=== PATIENT | male | born 1955 | race Asian ===

== ENCOUNTER 2024-07-22 14:24 | Inpatient (IN) | payer BC, OTHER ==
[~2024-07-22] VITALS: Ht 177.8 cm; Wt 90.9 kg
--- NOTE | 2024-07-22 15:00 | DVH ---
CHEST RADIOGRAPH Indication: SYNCOPE Technique: Single frontal view of the chest was obtained Comparison: None FINDINGS: Lines and Tubes: None Lungs: No focal consolidation. Pleura: No effusion. No pneumothorax. Cardiomediastinal contours: Unremarkable Bones: No acute osseous abnormality. IMPRESSION: No acute cardiopulmonary disease. Bronchovascular crowding due to low lung volume
[2024-07-22 15:19] VITALS: PULSE 106; RESP 22; O2SAT 96
--- NOTE | 2024-07-22 15:22 | ED.PDOC ---
History of Present Illness HPI Comments 69Y M presents to ED via EMS for chief complaint near syncope and dizziness. Pt states he was driving at 1200 today when he suddenly became dizzy and pulled over. Pt then stated he was unable to get out of his car due to imbalance and a bystander called 911. Upon EMS arrival, pt was hypotensive with BP 86/45 and tachycardic with HR 119. Pt says he was recently sick as well with chills [id number]. Pt denies headache, chest pain, SOB, and fever. Pt does not have family nearby [place]. Pt has fishing trip planned for this weekend. Chief Complaint: Syncope Time Seen by MD: 15:10 Reviewed Notes: Medications, Allergies Allergies: Coded Allergies: NO KNOWN ALLERGIES (Unverified , 07/22/24) Information Source: Patient Mode of Arrival: EMS Severity: Mild Timing: Minutes Duration: Minutes Prehospital treatment: Other Past Medical History PAST MEDICAL HISTORY: Unknown Surgical History: Unknown Family History Family History: Unknown Social History Smoker: Unknown Alcohol: Unknown Drugs: Unknown Lives In: Home Constitutional: reports: chills; denies: diaphoresis, fatigue, fever, malaise, sweats, weakness, others EENTM: denies: blurred vision, double vision, ear bleeding, ear discharge, ear drainage, ear pain, ear ringing, eye pain, eye redness, hearing loss, mouth pain, mouth swelling, nasal discharge, nose bleeding, nose congestion, nose pain, photophobia, tearing, throat pain, throat swelling, voice changes, others Respiratory: denies: cough, hemoptysis, orthopnea, SOB at rest, shortness of breath, SOB with excertion, stridor, wheezing, others Cardiovascular: reports: syncope (near synope); denies: chest pain, dizzy spells, diaphoresis, Dyspnea on exertion, edema, irregular heart beat, left arm pain, lightheadedness, palpitations, PND, others Gastrointestinal: denies: abdomen distended, abdominal pain, blood streaked bowels, constipated, diarrhea, dysphagia, difficulty swallowing, hematemesis, melena, nausea, poor appetite, poor fluid intake, rectal bleeding, rectal pain, vomiting, others Genitourinary: denies: burning, dysuria, flank pain, frequency, hematuria, incontinence, penile discharge, penile sore, pain, testicle pain, testicle swelling, urgency, others Neurological: reports: dizziness; denies: fainting, headache, left sided numbness, left sided weakness, numbness, paresthesia, pre-existing deficit, righ t sided numbness, right sided weakness, seizure, speech problems, tingling, tremors, weakness, others Musculoskeletal: denies: back pain, gout, joint pain, joint swelling, muscle pain, muscle stiffness, neck pain, others Integumetry: denies: bruises, change in color, change in hair/nails, dryness, laceration, lesions, lumps, rash, wounds, others Allergic/Immunocompromised: denies: Difficulty Healing, Frequent Infections, Hives, Itching, others Hematologic/Lymphatic: denies: anemia, blood clots, easy bleeding, easy bruising, swollen glands, others Endocrine: denies: excessive hunger, excessive sweating, excessive thirst, excessive urination, flushing, intolerance to cold, intolerance to heat, unexplained weight gain, unexplained weight loss, others Psychiatric: denies: anxiety, bipolar disorder, depression, hopeless, panic disorder, schizophrenia, sleepless, suicidal, others All Other Systems: Reviewed and Negative Physical Exam General Appearance: No Apparent Distress, Normal HEENT: Normal ENT Inspection, Pharynx Normal, TMs Normal Neck: Full Range of Motion, Non-Tender, Normal, Normal Inspection Respiratory: Chest Non-Tender, Lungs Clear, No Accessory Muscle Use, No Respiratory Distress, Normal Breath Sounds Cardiovascular: No Edema, No JVD, No Murmur, No Gallop, Normal Peripheral Pulses, Regular Rate/Rhythm Breast Exam: Deferred Gastrointestinal: No Organomegaly, Non Tender, No Pulsatile Mass, Normal Bowel Sounds, Soft Genitalia: Deferred Pelvic: Deferred Rectal: Deferred Extremities: No calf tenderness, Normal capillary refill, Normal inspection, Normal range of motion, Non-tender, No pedal edema Musculoskeletal : Apperance: Normal Neurologic: Alert, behavioral assistant II-XII nml as Tested, No Motor Deficits, Normal Affect, Normal Mood, No Sensory Deficits Cerebellar Function: Normal Reflexes: Normal Skin: Dry, Normal Color, Warm Lymphatic: No Adenopathy Was a procedure done? Was a procedure done?: No Differential Dx Considerations may include: , NSTEMI, COVID-19, influenza, pneumonia, bronchitis, STEMI X-Ray, Labs, Meds, VS Vital Signs Date Time Temp Pulse Resp B/P (MAP) Pulse Ox O2 Delivery O2 Flow Rate FiO2 07/22/24 16:57 07/22/24 16:40 98.5 07/22/24 16:00 102 19 90/45 (60) 92 07/22/24 15:45 99 19 85/53 (64) 92 07/22/24 15:40 102.3 07/22/24 15:30 106 19 78/50 (59) 92 07/22/24 15:22 104 07/22/24 15:19 106 22 96 Nasal Cannula* 2 28 07/22/24 15:15 116 19 86/46 (59) 92 07/22/24 15:00 115 22 77/51 (60) 92 07/22/24 15:00 102.3 113 22 07/22/24 14:52 102.3 116 22 86/45 (59) 92 102.3 Lab Test 07/22/24 15:18 07/22/24 15:17 07/22/24 00:00 Range/Units POC Glucose 199 H 70-106 mg/dl White Blood Count 11.1 H 4.4-10.8 10^3/uL Red Blood Count 4.00 L 4.5-5.90 10^6/uL Hemoglobin 12.5 L 13.5-17.5 g/dL Hematocrit 36.8 L 41.0-53.0 % Mean Corpuscular Volume 92.0 80.0-100.0 fL Mean Corpuscular Hemoglobin 31.2 28.0-32.0 pg Mean Corpuscular Hemoglobin Concent 33.9 32.0-36.0 g/dL Red Cell Distribution Width 12.7 11.8-14.3 % Platelet Count 189 140-450 10^3/uL Mean Platelet Volume 9.2 6.9-10.8 fL Neutrophils (%) (Auto) 87.1 H 37.0-80.0 % Lymphocytes (%) (Auto) 5.2 L 10.0-50.0 % Monocytes (%) (Auto) 7.4 0.0-12.0 % Eosinophils (%) (Auto) 0.1 0.0-7.0 % Basophils (%) (Auto) 0.2 0.0-2.0 % Neutrophils # (Auto) 9.7 H 1.6-8.6 10 ^3/uL Lymphocytes # (Auto) 0.6 0.4-5.4 10 ^3/uL Monocytes # (Auto) 0.8 0-1.3 10 ^3/uL Eosinophils # (Auto) 0 0-0.8 10 ^3/uL Basophils # (Auto) 0 0-0.2 10 ^3/uL Nucleated Red Blood Cells 0.0 % Prothrombin Time 11.8 9.3-11.8 sec Prothrombin Time INR 1.12 0.9-1.15 Activated Partial Thromboplast Time 34.3 24.5-34.5 SEC D-Dimer, Quantitative 2.31 H 0.0-0.49 mg/L FEU Sodium Level 136 136-145 mmol/L Potassium Level 4.4 3.5-5.1 mmol/L Chloride Level 102 98-107 mmol/L Carbon Dioxide Level 25 20-31 mmol/L Anion Gap 9 5-15 Blood Urea Nitrogen 35 H 9-23 mg/dL Creatinine 2.32 H 0.700-1.30 mg/dL Glomerular Filtration Rate Calc 30 >90 mL/min BUN/Creatinine Ratio 15.1 10.0-20.0 Serum Glucose 198 H 74-106 mg/dL Lactic Acid Level 1.4 0.4-2.0 mmol/L Calcium Level 9.5 8.7-10.4 mg/dL Magnesium Level 2.2 1.6-2.6 mg/dL Total Bilirubin 2.4 H 0.2-1.0 mg/dL Aspartate Amino Transferase (AST) 22 13-40 U/L Alanine Aminotransferase (ALT) 23 7-40 U/L Alkaline Phosphatase 93 46-116 U/L Troponin I High Sensitivity 2973 *H </=54 ng/L Total Protein 6.0 5.7-8.2 g/dL Albumin 3.8 3.2-4.8 g/dL Influenza Type A Antigen Pending Influenza Type B Antigen Pending SARS-CoV-2 Antigen (Rapid) Pending Current Medications Medications (Trade) Dose Ordered Sig/Glory Route Start Time Stop Time Status Last Admin Acetaminophen (Tylenol Tablet) 1,000 mg ONCE ONCE PO 07/22/24 14:30 07/22/24 14:31 DC 07/22/24 15:40 Sodium Chloride 1,900 ml @ 1,900 mls/hr ONCE ONCE IV 12/6/24 15:15 07/22/24 16:14 DC 07/22/24 15:40 [place] [id number] Ph: [phone] DIAGNOSTIC IMAGING Diagnostic Imaging Report : [id number] Signed PATIENT: DELANEY RESENDIZ ACCT: [id number] UNIT: [id number] : 1955 LOC: ER ROOM / BED: / AGE / SEX: 69 / M ADM STATUS: REG ER SERVICE 34 ORDERING PHYSICIAN: MARIALUISA ARMENDARIZ MD PROCEDURE(s): CXRP - CHEST PORTABLE REASON: SYNCOPE ORDER NUMBER(s): [id number], ACCESSION NUMBER(s): [id number] CHEST RADIOGRAPH Indication: SYNCOPE Technique: Single frontal view of the chest was obtained Comparison: None FINDINGS: Lines and Tubes: None Lungs: No focal consolidation. Pleura: No effusion. No pneumothorax. Cardiomediastinal contours: Unremarkable Bones: No acute osseous abnormality. IMPRESSION: No acute cardiopulmonary disease. Bronchovascular crowding due to low lung volume ATED BY: LACHELLE FRENCH DO DICTATED DATE/TIME: 07/22/241456 SIGNED BY: LACHELLE FRENCH DO SIGNED DATE/TIME: 07/22/241456 CC: Time of 1ST Reevaluation: 15:40 Reevaluation 1ST: Unchanged Patient Education/Counseling: Diagnosis, Treatment Family Education/Counseling: No Family Present Departure 1 Departure Time of Disposition: 17:06 Impression: Primary Impression: NSTEMI (non-ST elevated myocardial infarction) Additional Impression: Hypotension Disposition: 09 ADMITTED INPATIENT Admit to: Tele Condition: Guarded Critical Care Note Critical Care Time?: Yes (45 min-critical care time only) Critical care comment: This 69-year-old male presents emergency room secondary to generalized weakness. He presented with hypotension. He triggered the sepsis pathway. During his workup, unfortunately, the patient was noted to have a profoundly elevated troponin and had worsening of his hypotension. The patient was started on heparin. Additionally, he was noted to have an elevated D-dimer. Cardiology was made aware. Patient will be admitted to the hospitalist service. Stability Stability form required: No Heart Score Heart Score: Heart Score Response (Comments) Value History Slightly Suspicious 0 EKG Repolarization Disturb 1 Age >65 2 Risk Factors 1 or 2 risk factors 1 Troponin >3 x's Normal limit 2 Total 6 I personally scribed for MARIALUISA ARMENDARIZ MD ([email or web address]) on 07/22/24 at 15:22. Electronically submitted by Corinne Lutz ([email or web address]). I personally scribed for MARIALUISA ARMENDARIZ MD ([email or web address]) on 07/22/24 at 15:36. Electronically submitted by Corinne Lutz ([employer]). MARIALUISA ARMENDARIZ MD Jul 22, 2024 15:22
[2024-07-22] MEDS: SODIUM CHLORIDE 0.9% 1,900 ML IV ONE (15:40)
[2024-07-22] MEDS: ACETAMINOPHEN 500 MG TAB or CAP PO ONE (15:40)
[2024-07-22 15:59] LABS: Basophils # (auto) 0 10 ^3/uL (0-0.2); Basophils % (auto) 0.2 % (0.0-2.0); Eosinophils # (auto) 0 10 ^3/uL (0-0.8); Eosinophils % (auto) 0.1 % (0.0-7.0); Hematocrit 36.8 % (41.0-53.0); Hemoglobin 12.5 g/dL (13.5-17.5); Lymphocytes # (auto) 0.6 10 ^3/uL (0.4-5.4); Lymphocytes % (auto) 5.2 % (10.0-50.0); Mean Corpuscular Hemoglobin 31.2 pg (28.0-32.0); Mean Corpuscular Hgb Conc. 33.9 g/dL (32.0-36.0); Monocytes # (auto) 0.8 10 ^3/uL (0-1.3); Monocytes % (auto) 7.4 % (0.0-12.0); Neutrophils # (auto) 9.7 10 ^3/uL (1.6-8.6); Neutrophils % (auto) 87.1 % (37.0-80.0); Platelet Count (auto) 189 10^3/uL (140-450); Red Cell Distribution Width 12.7 % (11.8-14.3); White Blood Cell 11.1 10^3/uL (4.4-10.8)
[2024-07-22 16:16] LABS: INR 1.12 (0.9-1.15); Partial Thromboplastin Time 34.3 SEC (24.5-34.5); Prothrombin Time 11.8 sec (9.3-11.8)
[2024-07-22 16:40] VITALS: TEMP 98.5
[2024-07-22 16:44] LABS: Alanine Aminotransferase 23 U/L (7-40); Alkaline Phosphatase 93 U/L (46-116); Anion Gap 9 (5-15); BUN/Creatinine Ratio 15.1 (10.0-20.0); Calcium 9.5 mg/dL (8.7-10.4); Carbon Dioxide 25 mmol/L (20-31); Chloride 102 mmol/L (98-107); Magnesium 2.2 mg/dL (1.6-2.6); Potassium 4.4 mmol/L (3.5-5.1); Sodium 136 mmol/L (136-145)
[2024-07-22 16:45] LABS: Albumin 3.8 g/dL (3.2-4.8); Aspartate Aminotransferase 22 U/L (13-40)
[2024-07-22] MEDS: IOHEXOL 350 MG/ML 100ML IJ ONE (16:45)
[2024-07-22 16:46] LABS: Blood Urea Nitrogen 35 mg/dL (9-23); Glucose 198 mg/dL (74-106)
[2024-07-22 16:47] LABS: Bilirubin, Total 2.4 mg/dL (0.2-1.0)
--- NOTE | 2024-07-22 17:22 | DVH ---
CTA Chest with intravenous contrast INDICATION: Chest pain COMPARISON: None TECHNIQUE: Multidetector spiral CTA of the chest was performed of the chest with intravenous contrast . PULMONARY ANGIOGRAPHY PROTOCOL was utilized using a bolus-tracking technique centered on the main p ulmonary artery. Axial, coronal and sagittal multiplanar and MIP reformats were performed. CONTRAST: Type of contrast: Omni 350 Contrast injected: 100 ml Radiation dose : Chest: CTDI volume is 47 mGy. Dose-length product is 848 mGy*cm The dose indicators for CT are the volume computed Tomography (CT) dose Index (CTDIvol) and the dose Length product (DLP), and are measured in units of mGy and mGy-cm, respectively. These indicators are not patient dose, but values generated from the CT scanner acquisition factors. The report includes radiation exposure data for exposures received during this examination. Findings: Limited by motion. Pulmonary artery: No large central or large segmental pulmonary embolism. Lower neck: Normal thyroid. Lungs: Low lung volumes. Patchy atelectasis in both lungs. No suspicious nodule or consolidation iden tified. Heart/Vascular Structures: Normal heart size. No pericardial effusion. Lymph Nodes: No adenopathy Pleura: No pleural effusion or significant pneumothorax. Musculoskeletal: No acute osseous abnormality. Soft tissues: Normal. Upper abdomen: Limited portions of the upper abdomen are unremarkable. IMPRESSION: 1. Limited by motion. No large central pulmonary embolism. 2. No acute thoracic finding. HS:Y
[2024-07-22] MEDS ORDERED: MAALOX PLUS or MAALOX 30 ML PO PRN (18:15)
[2024-07-22] MEDS ORDERED: MORPHINE SULFATE INJ 2 MG/ml SYRG IV PRN (18:15)
[2024-07-22] MEDS ORDERED: ZOLPIDEM TARTRATE 5 MG TAB PO PRN (18:15)
[2024-07-22] MEDS ORDERED: ACETAMINOPHEN 325 MG TAB PO PRN (18:15)
[2024-07-22] MEDS ORDERED: LORazepam 0.5 MG TAB PO PRN (18:15)
[2024-07-22] MEDS ORDERED: SODIUM CHLORIDE 0.9% 1,000 ML IV SCH (18:15)
[2024-07-22] MEDS ORDERED: DEXTROSE (50%) 50ML SYRG IV PRN (18:15)
[2024-07-22] MEDS ORDERED: NITROGLYCERIN 0.4 MG SL TAB SL PRN (18:15)
[2024-07-22] MEDS ORDERED: ONDANSETRON HCL 4 MG/2 ML VIAL IV PRN (18:15)
[2024-07-22] MEDS: HEPARIN SODIUM (PORCINE) 5000 UNITS/ML 1ML VIAL IV ONE (18:19)
[2024-07-22 18:29] LABS: COVID19 ANTIGEN SOFIA FIA NEGATIVE (NEGATIVE); Rapid Influenza A Negative (Negative); Rapid Influenza B Negative (Negative)
--- NOTE | 2024-07-22 18:42 | DVHHP2 ---
History of Present Illness Reason for Visit: syncope History of Present Illness 69-year-old obese male no stated past medical history comes to the ED with complaints of dizziness and weakness patient was initially driving when he suddenly felt very dizzy ended up pulling over and passing out momentarily on evaluation at that time patient was seen by EMS that was called by bystanders patient was found to be hypotensive with blood pressures as low as the 80s over 40s and tachycardic with blood heart rates as high as the 120s patient was brought into the ED for evaluation as per patient he has been feeling slightly sick for the last 3 nights stating that he has had full fevers chills and mild cough but denies any other symptoms denies having chest pain did not have any other things patient states he is currently in this area for a weekend trip in his planning on fishing tomorrow multiple times the patient stated that he wanted to leave in order to make sure he made his fishing trip however patient was shown to have troponins as high as 3000 and was highly highly recommended to stay in the ED and stay for admission and further evaluation Cardiovascular: HTN Pulmonary: Pneumonia Review of Systems Constitutional: Yes: Weakness; No: Fever, Chills, Sweats, Malaise, Other Eyes: No: Pain, Vision change, Conjunctivae inflammation, Eyelid inflammation, Other, Redness ENT: No: Ear pain, Ear discharge, Nose pain, Nose discharge, Nose congestion, Mouth pain, Mouth swelling, Throat pain, Throat swelling, Other Respiratory: Cough, Shortness of breath, SOB with excertion; No: Dry, Wheezing, Hemoptysis, Pleuritic Pain, Sputum, Wheezing, Other Cardiovascular: Palpitations; No: Chest Pain, Orthopnea, Paroxysmal Noc. Dyspnea, Edema, Lt Headedness, Other Gastrointestinal: No: Nausea, Vomiting, Abdominal Pain, Diarrhea, Constipation, Melena, Hematochezia, Other Genitourinary: No Dysuria, No Frequency, No Incontinence, No Hematuria, No Retention, No Other Musculoskeletal: No: other, neck pain, shoulder pain, arm pain, back pain, hand pain, leg pain, foot pain Skin: No: Rash, Lesions, Jaundice, Bruising, Other Neurological: No: Weakness, Numbness, Incoordination, Change in speech, Confusion, Seizures, Other Allergies: Coded Allergies: NO KNOWN ALLERGIES (Unverified , 07/22/24) Medications Current Medications Medications Dose Ordered Sig/Glory Route Start Time Stop Time Status Last Admin Dose Admin Vancomycin HCl 200 ml @ 200 mls/hr Q12HR IV 07/22/24 22:00 UNV Piperacillin Sod/ Tazobactam Sod 100 ml @ 33.3 mls/hr Q6HR IV 07/22/24 18:00 UNV Diagnostic Test (Pha) 1 strip IQ4HR 07/22/24 20:00 UNV Insulin Human Regular IQ4HR SC 07/22/24 20:00 UNV Dextrose 50 ml UD PRN IV 07/22/24 18:15 UNV Sodium Chloride 1,000 ml @ 200 mls/hr Q5H IV 07/22/24 18:15 UNV Aspirin 81 mg DAILY PO 07/23/24 10:00 UNV Atorvastatin Calcium 80 mg HS PO 07/22/24 22:00 UNV Carvedilol 6.25 mg Q12HR PO 07/22/24 22:00 UNV Lisinopril 5 mg DAILY PO 07/23/24 10:00 UNV Acetaminophen 650 mg Q6HP PRN PO 07/22/24 18:15 UNV Zolpidem Tartrate 5 mg QHSP PRN PO 07/22/24 18:15 UNV Lorazepam 0.5 mg Q6HP PRN PO 07/22/24 18:15 UNV Docusate Sodium 100 mg DAILY PO 07/23/24 10:00 UNV Ondansetron HCl 4 mg Q4HP PRN IV 07/22/24 18:15 UNV Al Hydrox/Mg Hydrox/Simethicone 30 ml Q6HPRN PRN PO 07/22/24 18:15 UNV Nitroglycerin 0.4 mg Q5MINP PRN SL 07/22/24 18:15 UNV Morphine Sulfate 2 mg Q30M PRN IV 07/22/24 18:15 UNV Exam Vital Signs Vital Signs Date Time Temp Pulse Resp B/P (MAP) Pulse Ox O2 Delivery O2 Flow Rate FiO2 07/22/24 17:00 83 19 78/41 (53) 95 07/22/24 16:40 98.5 07/22/24 15:19 Nasal Cannula* 2 28 General Appearance: Alert, Oriented X3, Cooperative HEENT: Atraumatic, PERRLA, EOMI Respiratory: Clear to auscultation, Normal air movement Cardiovascular: Regular rate, Normal S1, Normal S2 Abdominal: Normal bowel sounds, Soft Extremities: No clubbing, No cyanosis Skin: No rashes, No breakdown Neuro: Normal gait, Normal speech Psych/Mental Status: Mood NL Labs/Xrays Labs Test 07/22/24 17:30 07/22/24 15:18 07/22/24 15:17 07/22/24 00:00 Range/Units POC Glucose 199 H 70-106 mg/dl White Blood Count 11.1 H 4.4-10.8 10^3/uL Red Blood Count 4.00 L 4.5-5.90 10^6/uL Hemoglobin 12.5 L 13.5-17.5 g/dL Hematocrit 36.8 L 41.0-53.0 % Mean Corpuscular Volume 92.0 80.0-100.0 fL Mean Corpuscular Hemoglobin 31.2 28.0-32.0 pg Mean Corpuscular Hemoglobin Concent 33.9 32.0-36.0 g/dL Red Cell Distribution Width 12.7 11.8-14.3 % Platelet Count 189 140-450 10^3/uL Mean Platelet Volume 9.2 6.9-10.8 fL Neutrophils (%) (Auto) 87.1 H 37.0-80.0 % Lymphocytes (%) (Auto) 5.2 L 10.0-50.0 % Monocytes (%) (Auto) 7.4 0.0-12.0 % Eosinophils (%) (Auto) 0.1 0.0-7.0 % Basophils (%) (Auto) 0.2 0.0-2.0 % Neutrophils # (Auto) 9.7 H 1.6-8.6 10 ^3/uL Lymphocytes # (Auto) 0.6 0.4-5.4 10 ^3/uL Monocytes # (Auto) 0.8 0-1.3 10 ^3/uL Eosinophils # (Auto) 0 0-0.8 10 ^3/uL Basophils # (Auto) 0 0-0.2 10 ^3/uL Nucleated Red Blood Cells 0.0 % Prothrombin Time 11.8 9.3-11.8 sec Prothrombin Time INR 1.12 0.9-1.15 Activated Partial Thromboplast Time 34.3 24.5-34.5 SEC D-Dimer, Quantitative 2.31 H 0.0-0.49 mg/L FEU Sodium Level 136 136-145 mmol/L Potassium Level 4.4 3.5-5.1 mmol/L Chloride Level 102 98-107 mmol/L Carbon Dioxide Level 25 20-31 mmol/L Anion Gap 9 5-15 Blood Urea Nitrogen 35 H 9-23 mg/dL Creatinine 2.32 H 0.700-1.30 mg/dL Glomerular Filtration Rate Calc 30 >90 mL/min BUN/Creatinine Ratio 15.1 10.0-20.0 Serum Glucose 198 H 74-106 mg/dL Lactic Acid Level 1.4 0.4-2.0 mmol/L Calcium Level 9.5 8.7-10.4 mg/dL Magnesium Level 2.2 1.6-2.6 mg/dL Total Bilirubin 2.4 H 0.2-1.0 mg/dL Aspartate Amino Transferase (AST) 22 13-40 U/L Alanine Aminotransferase (ALT) 23 7-40 U/L Alkaline Phosphatase 93 46-116 U/L Total Protein 6.0 5.7-8.2 g/dL Albumin 3.8 3.2-4.8 g/dL Influenza Type A Antigen Negative Negative Influenza Type B Antigen Negative Negative SARS-CoV-2 Antigen (Rapid) Negative NEGATIVE Assessment/Plan Assessment/Plan Admit to ICU Septic shock unknown source suspected possible pulmonary Patient started on IV antibiotics in the ED We will continue with Onel Patient was shown to have hypotension requiring septic fluid protocol Patient was also shown to have temperatures as high as 102 in the ED Source of infection is unconfirmed Patient remains awake alert and clear NSTEMI Patient with elevated troponin as high as 3000 believed to be secondary to po ssible demand ischemia Cardiology is consulted We will follow with cardiac recommendations in reference to echoes or catheteri zation completion Chest pain protocol to be followed History of hypertension Patient hypotensive we will hold all antihypertensives at this point in time Side note patient states he has a fishing trip in the [facility] tomorrow and was very eager to try to leave Patient was very aggressively recommended not to leave the hospital and to be treated urgently critical care time 45 minutes Plan discussed with: Patient My Orders Orders - CHARBEL LOUIS MD Procedure Category Date Status Time Glucose Blood PHA 07/22/24 Logged (Accu-Chek Comfort 20:00 Insulin R (Human) PHA 07/22/24 Logged (Insulin R) 20:00 Dextrose 50% Syringe PHA 07/22/24 Logged 18:15 Admit ADMIT 07/22/24 Transmitted 18:15 Code Status CODE 07/22/24 Transmitted 18:15 Cardiac DIET 07/22/24 Transmitted Diet-2gna,Lofat,Lochol Dinner Sodium Chloride 0.9% PHA 07/22/24 Logged 18:15 Aspirin Tablet PHA 07/23/24 Logged 10:00 Atorvastatin (Lipitor) PHA 07/22/24 Logged 22:00 Carvedilol Tablet PHA 07/22/24 Logged (Coreg Tablet) 22:00 Lisinopril Tablet PHA 07/23/24 Logged (Zestril Tablet) 10:00 Acetaminophen Tablet PHA 07/22/24 Logged (Tylenol Tablet) 18:15 Zolpidem Tartrate PHA 07/22/24 Logged (Ambien) 18:15 Lorazepam Tablet PHA 07/22/24 Logged (Ativan Tablet) 18:15 Docusate Sodium PHA 07/23/24 Logged Capsule (Colace 10:00 Complete Blood Count LAB 07/23/24 Verified 04:00 Basic Metabolic Panel LAB 07/23/24 Verified 04:00 Ondansetron Hcl PHA 07/22/24 Logged (Zofran) 18:15 Electrocardigram EKG 07/22/24 Logged 18:15 Alum & Mag PHA 07/22/24 Logged Hydrox-Simethicone 18:15 Troponin-I Hs LAB 07/22/24 Logged 18:15 Cardiac [facility] 07/22/24 In Process Rehabilitation - Outpa Nitroglycerin PHA 07/22/24 Logged Sublingual (Ntrostat 18:15 Morphine Sulfate PHA 07/22/24 Logged Injection 18:15 Stat Ekg For Chest [facility] 07/22/24 In Process Pain 18:15 Notify Md Of Changes [facility] 07/22/24 In Process From Base 18:15 [employer] For [facility] 07/22/24 In Process 24 Hours 18:15 Emergency Dysrhythmia [facility] 07/22/24 In Process Protocol 18:15 Rhythm Strips Once [facility] 07/22/24 In Process Every Shift 18:15 Oxygen By Nasal RT 07/22/24 Transmitted Cannula 18:15 Problem List: (1) Hypotension (2) NSTEMI (non-ST elevated myocardial infarction) Date of Service: Jul 22, 2024 Billing Provider: CHARBEL LOUIS MD Common Visit Codes: [id number] CARE 30-74 MIN CHARBEL LOUIS MD Jul 22, 2024 18:42
--- NOTE | 2024-07-22 18:46 | DVHINCON2 ---
Date Seen: Jul 22, 2024 Referring Physician MD Ramon Reason for Consultation NSTEMI History of Present Illness This is a 69-year-old man who presented to the emergency room via EMS with a chief complaint of near syncope. The patient reports he was driving his car and upon pulling over and exiting he developed increased lightheadedness and dizziness with a bystander calling 911. Upon EMS arrival he was found with a systolic blood pressure in the 80s mmHg and to be tachycardic. The patient endorses some of his symptoms also includes chills and pyrexia up to 101 F for the past 2-3 days. He underwent multiple 12 lead electrocardiograms revealing a normal sinus rhythm without discernible ischemia. Initial troponin level was found >2,900 ng/L prompting a STAT cardiology consultation. Denies chest pain, palpitations, shortness of breath, or syncopal events. The patient was witnessed walk back from the bathroom without any obvious symptoms. Significant medical history includes hypertension, dyslipidemia, prediabetes, and obesity. Of note, the patient was recently prescribed isosorbide mononitrate 30 mg and benazepril 20 mg within the past month. Past Medical History Past medical history reviewed. No other significant than mentioned above. Past Surgical History Right knee surgery Family History Family history reviewed. Social History Denies the use of illicit drugs, alcohol, or tobacco use. Allergies: Coded Allergies: NO KNOWN ALLERGIES (Unverified , 07/22/24) Home Meds Home medications reviewed. Current Medications Current Medications Medications (Trade) Dose Ordered Sig/Glory Route PRN Reason Start Time Stop Time Status Last Admin Vancomycin HCl 200 ml @ 200 mls/hr Q12HR IV 07/22/24 22:00 UNV Piperacillin Sod/ Tazobactam Sod 100 ml @ 33.3 mls/hr Q6HR IV 07/22/24 18:00 UNV Review of Systems Constitutional: Fever, chills Ears, Nose, & Throat: No symptom reported Eyes: No symptom reported Neurological: Dizziness, lightheadedness Pulmonary/Respiratory: No symptom reported Cardiovascular: No symptom reported Gastrointestinal: No symptom reported Genitourinary: No symptom reported Musculoskeletal: No symptom reported Skin: No symptom reported Psychiatric: No symptom reported Endocrine: No symptom reported Hemotologic/Lymphatic: No symptom reported Vital Signs Vital Signs Date Time Temp Pulse Resp B/P (MAP) Pulse Ox O2 Delivery O2 Flow Rate FiO2 12/6/24 17:00 83 19 78/41 (53) 95 07/22/24 16:40 98.5 07/22/24 15:19 Nasal Cannula* 2 28 Physical Exam General Appearance: Cooperative. Well developed. Obese. Moderate acute distress Head Exam: Normal inspection Neck Exam: Normal inspection. Non-tender. Normal alignment Pulmonary/Respiratory: Chest non-tender. Clear bilateral breath sounds Cardiovascular/Chest: Regular rate and rhythm. S1, S2. NSR. No murmurs. No JVD. Peripheral Pulses: 2+ Radial (R). 2+ Radial (L). 2+ Pedal (R). 2+ Pedal (L) Abdominal Exam: Normal bowel sounds. Soft. Nontender. No hepatospenomegaly. No masses Ankle Exam: Negative ankle edema Lower extremities: Negative lower extremity edema Neuro/Mental Status: A&O x4. Coherent Thoughts/Psych: Normal thought pattern. Appropriate mood and affect. Good judgement and insight Appearance: Moderate acute distress Skin Exam: Normal inspection. Normal color. Warm. Dry Labs/Diagnostic Data Labs Test 07/22/24 17:30 07/22/24 15:18 07/22/24 15:17 07/22/24 00:00 Range/Units POC Glucose 199 H 70-106 mg/dl White Blood Count 11.1 H 4.4-10.8 10^3/uL Red Blood Count 4.00 L 4.5-5.90 10^6/uL Hemoglobin 12.5 L 13.5-17.5 g/dL Hematocrit 36.8 L 41.0-53.0 % Mean Corpuscular Volume 92.0 80.0-100.0 fL Mean Corpuscular Hemoglobin 31.2 28.0-32.0 pg Mean Corpuscular Hemoglobin Concent 33.9 32.0-36.0 g/dL Red Cell Distribution Width 12.7 11.8-14.3 % Platelet Count 189 140-450 10^3/uL Mean Platelet Volume 9.2 6.9-10.8 fL Neutrophils (%) (Auto) 87.1 H 37.0-80.0 % Lymphocytes (%) (Auto) 5.2 L 10.0-50.0 % Monocytes (%) (Auto) 7.4 0.0-12.0 % Eosinophils (%) (Auto) 0.1 0.0-7.0 % Basophils (%) (Auto) 0.2 0.0-2.0 % Neutrophils # (Auto) 9.7 H 1.6-8.6 10 ^3/uL Lymphocytes # (Auto) 0.6 0.4-5.4 10 ^3/uL Monocytes # (Auto) 0.8 0-1.3 10 ^3/uL Eosinophils # (Auto) 0 0-0.8 10 ^3/uL Basophils # (Auto) 0 0-0.2 10 ^3/uL Nucleated Red Blood Cells 0.0 % Prothrombin Time 11.8 9.3-11.8 sec Prothrombin Time INR 1.12 0.9-1.15 Activated Partial Thromboplast Time 34.3 24.5-34.5 SEC D-Dimer, Quantitative 2.31 H 0.0-0.49 mg/L FEU Sodium Level 136 136-145 mmol/L Potassium Level 4.4 3.5-5.1 mmol/L Chloride Level 102 98-107 mmol/L Carbon Dioxide Level 25 20-31 mmol/L Anion Gap 9 5-15 Blood Urea Nitrogen 35 H 9-23 mg/dL Creatinine 2.32 H 0.700-1.30 mg/dL Glomerular Filtration Rate Calc 30 >90 mL/min BUN/Creatinine Ratio 15.1 10.0-20.0 Serum Glucose 198 H 74-106 mg/dL Lactic Acid Level 1.4 0.4-2.0 mmol/L Calcium Level 9.5 8.7-10.4 mg/dL Magnesium Level 2.2 1.6-2.6 mg/dL Total Bilirubin 2.4 H 0.2-1.0 mg/dL Aspartate Amino Transferase (AST) 22 13-40 U/L Alanine Aminotransferase (ALT) 23 7-40 U/L Alkaline Phosphatase 93 46-116 U/L Total Protein 6.0 5.7-8.2 g/dL Albumin 3.8 3.2-4.8 g/dL Assessment Septic shock, ?source Acute kidney injury likely vasomotor nephropathy NSTEMI, likely type 2 secondary to above Rule out structural heart disease Prediabetes Dyslipidemia Obesity Plan/Recommendation (Dr. Duncan) Likely NSTEMI type 2 secondary to demand ischemia. We will continue further cardiac evaluation with a transthoracic echocardiogram to rule out structural heart disease. The patient presents with septic shock. He was also recently Rx a couple of antihypertensives which could be a trigger for worsening hypotension. Continue blood cultures and urinalysis. Continue IV fluids and ABX therapy per primary care team. Continue Nephrology consultation for MACKENZIE. Hold ALL blood pressure medications given shock. Initiate DVT/VTE prophylaxis. In the setting of an unremarkable echocardiogram, there is no further cardiac workup indicated at this time. Thank you for allowing us to participate in this patient's care. Please call if you have any questions or concerns. Critical care time: 40 min. This medical document was created using an electronic medical record system with voice recognition software and computerized dictation system. Although this document has been carefully reviewed, there might still be some phonetic and typographical errors. Occasional wrong-word or ``sound-alike substitutions may have occurred due to the inherent limitations of voice recognition software. These areas are purely typographical due to imperfections of the software programs and do not reflect any compromise in the patient's medical care. Please read the chart carefully and recognize, using context, where these substitutions have occurred. Plan discussed with: Patient, Other Date of Service: Jul 22, 2024 Billing Provider: JESSICA DUNCAN MD Cardiology Common Codes: [id number] CARE 30-74 MIN SERENA [facility] Jul 22, 2024 18:46
[2024-07-22 19:00] VITALS: BP 107/68; PULSE 78; RESP 19; O2SAT 95
[2024-07-22 19:14] LABS: Triglycerides 98 mg/dL (< 150)
[2024-07-22 19:15] LABS: LDL Cholesterol 51 mg/dL (< 100)
[2024-07-22 19:16] LABS: Cholesterol 110 mg/dL (< 200)
[2024-07-22 19:24] LABS: HDL Cholesterol 37 mg/dL (40-59)
[2024-07-22] MEDS ORDERED: InsuLIN REG 1unit/0.01ml Soln (100units/ml) SC SCH (20:00)
[2024-07-22] MEDS ORDERED: PIPERACILLIN-TAZOB 3.375GM 100 ML IV ONE (20:00)
[2024-07-22] MEDS ORDERED: ACCU-CHEK COMFORT CURVE STRIP VI SCH (20:00)
[2024-07-22 21:24] LABS: Urine Bacteria FEW /hpf (None Seen); Urine Blood 1+ /uL (Negative); Urine Clarity Clear (Clear); Urine Color Yellow (Yellow); Urine Mucus FEW (None Seen); Urine Protein, UAD 2+ (Negative); Urine Urobilinogen Normal (Negative); Urine WBC 2 /hpf (0 - 3)
[2024-07-22 21:34] LABS: Urine Specific Gravity > 1.050 (1.001-1.035)
[2024-07-22] MEDS ORDERED: VANCOMYCIN 1GM/250ML KIT 200 ML IV SCH (22:00)
[2024-07-22] MEDS ORDERED: ATORVASTATIN 20 MG TAB PO SCH (22:00)
[2024-07-22] MEDS ORDERED: VANCOMYCIN 1GM/250ML KIT 200 ML IV ONE (22:00)
[2024-07-22] MEDS ORDERED: HEPARIN SODIUM (PORCINE) 5000 UNITS/ML 1ML VIAL SC SCH (22:00)
[2024-07-22] MEDS ORDERED: CARVEDILOL 3.125 MG TAB PO SCH (22:00)
[2024-07-23] MEDS ORDERED: PIPERACILLIN-TAZOB 3.375GM 100 ML IV SCH (04:00)
[2024-07-23] MEDS ORDERED: DOCUSATE SOD 100 MG CAP PO SCH (10:00)
[2024-07-23] MEDS ORDERED: LISINOPRIL 5 MG TAB PO SCH (10:00)
[2024-07-23] MEDS ORDERED: ASPirin 81 mg TAB PO SCH (10:00)
--- NOTE | 2024-07-23 17:22 | ECG ---
[facility] Test Date: 2024-07-22 Test Time: 15:22:56 Pat Name: DELANEY RESENDIZ Department: ER Room: [address] [place] [address] A Gender: M Underwriting Operations Manager: DULCE : 1955 Requested By: CHARBEL LOUIS Order Number: [id number] Reading MD: Adarsh Membreno Measurements Intervals [place] Rate: 104 P: 34 TN: 140 QRS: 68 QRSD: 96 T: 32 QT: 348 QTc: 458 Interpretive Statements Sinus tachycardia Atrial premature complex Borderline ST depression, diffuse leads Electronically Signed On 07-28-2024 14:54:13 PST by Adarsh Membreno Please click the below link to view image of tracing.
--- NOTE | 2024-07-26 10:30 | ECG ---
[facility] Test Date: 2024-07-22 Test Time: 17:53:33 Pat Name: DELANEY RESENDIZ Department: er Room: [address] [place] [address] A Gender: M Fitness Plan Coordinator: sarita : 1955 Requested By: MARIALUISA ARMENDARIZ Order Number: [id number] Reading MD: Adarsh Membreno Measurements Intervals [place] Rate: 84 P: 36 [place]: 153 QRS: 71 QRSD: 99 T: 80 QT: 393 QTc: 465 Interpretive Statements Sinus rhythm Electronically Signed On 07-29-2024 12:12:59 PST by Adarsh Membreno Please click the below link to view image of tracing.
[2024-07-27] MEDS ORDERED: NALO4SPR3 (17:21)
== END 2024-07-22 19:04 | disposition left against medical advice (07) | DRG 871 ==
LOC: ER 14:24 → EDBD 14:24 → TELE 15:13 → OVERFLOW 18:34
PROVIDERS: ADMIT General Practice; ATTEND Hospitalist
DX: A41.9 Sepsis, unspecified organism (principal); I21.A1 Myocardial infarction type 2; R65.21 Severe sepsis with septic shock; N17.0 Acute kidney failure with tubular necrosis; I10 Essential (primary) hypertension; Z20.822 Contact with and (suspected) exposure to COVID-19; E66.9 Obesity, unspecified; E78.5 Hyperlipidemia, unspecified; R73.03 Prediabetes; Z68.28 Body mass index [BMI] 28.0-28.9, adult
CPT/HCPCS: 36415; 36600; 71045; 71275; 80053; 80061; 80202; 81001; 82805; 82962; 83036; 83605; 83735; 83880; 84443; 84484; 85025; 85379; 85610; 85730; 87040; 87077; 87086; 87088; 87186; 87426; 87804; 93005; 96361; 96374; 99291; G0378

== ENCOUNTER 2024-07-22 23:39 | Inpatient (IN) | payer BC ==
[~2024-07-22] VITALS: Ht 167.6 cm; Wt 97.9 kg
[2024-07-23] VITALS (7 sets, daily range): BP systolic 88–104; BP diastolic 52–72; PULSE 79–100; RESP 12–19; TEMP 97.3; O2SAT 95–100
--- NOTE | 2024-07-23 00:38 | ED.PDOC ---
History of Present Illness HPI Comments This patient is a 69-year-old male who returns to the ED today for admission due to an NSTEMI and hypotension. Patient stated he needed to leave the facility for family reasons, but has returned. Patient complains of mild dizziness at arrival. Patient is mildly febrile, tachycardic and hypotensive. Chief Complaint: Dizziness Time Seen by MD: 23:52 Primary Care Provider: UNKNOWN Reviewed Notes: Nurses Notes Allergies: Coded Allergies: NO KNOWN ALLERGIES (Unverified , 07/22/24) Information Source: Patient Mode of Arrival: Ambulatory Severity: Moderate Timing: Days Duration: Since onset Prehospital treatment: Other (Patient was admitted to this facility earlier today.) Past Medical History PAST MEDICAL HISTORY: Denies Surgical History: Denies all surgeries Family History Family History: Reviewed,noncontributory to illness, No family hx of Cancer, No family hx of DM, No family hx of Heart andreia, No family hx of HTN, No family hx ofKidney andreia, No family hx of Liver andreia, No family hx of Lung andreia, No family hx of Stroke Social History Smoker: Non-Smoker Alcohol: Denies ETOH Use Drugs: Denies Drug Use Lives In: Home Constitutional: denies: chills, diaphoresis, fatigue, fever, malaise, sweats, weakness, others EENTM: denies: blurred vision, double vision, ear bleeding, ear discharge, ear drainage, ear pain, ear ringing, eye pain, eye redness, hearing loss, mouth pain, mouth swelling, nasal discharge, nose bleeding, nose congestion, nose pain, photophobia, tearing, throat pain, throat swelling, voice changes, others Respiratory: reports: shortness of breath; denies: cough, hemoptysis, orthopnea, SOB at rest, SOB with excertion, stridor, wheezing, others Cardiovascular: denies: chest pain, dizzy spells, diaphoresis, Dyspnea on exertion, edema, irregular heart beat, left arm pain, lightheadedness, palpitations, PND, syncope, others Gastrointestinal: denies: abdomen distended, abdominal pain, blood streaked bowels, constipated, diarrhea, dysphagia, difficulty swallowing, hematemesis, melena, nausea, poor appetite, poor fluid intake, rectal bleeding, rectal pain, vomiting, others Genitourinary: denies: burning, dysuria, flank pain, frequency, hematuria, incontinence, penile discharge, penile sore, pain, testicle pain, testicle swelling, urgency, others Neurological: reports: dizziness; denies: fainting, headache, left sided numbness, left sided weakness, numbness, paresthesia, pre-existing deficit, right sided numbness, right sided weakness, seizure, speech problems, tingling, tremors, weakness, others Musculoskeletal: denies: back pain, gout, joint pain, joint swelling, muscle pain, muscle stiffness, neck pain, others Integumetry: denies: bruises, change in color, change in hair/nails, dryness, laceration, lesions, lumps, rash, wounds, others Allergic/Immunocompromised: denies: Difficulty Healing, Frequent Infections, Hives, Itching, others Hematologic/Lymphatic: denies: anemia, blood clots, easy bleeding, easy bruising, swollen glands, others Endocrine: denies: excessive hunger, excessive sweating, excessive thirst, excessive urination, flushing, intolerance to cold, intolerance to heat, unexplained weight gain, unexplained weight loss, others Psychiatric: denies: anxiety, bipolar disorder, depression, hopeless, panic disorder, schizophrenia, sleepless, suicidal, others Physical Exam General Appearance: Moderate Distress (Due to his shortness a breath and dizziness concerns.), Normal HEENT: Normal ENT Inspection, Pharynx Normal, TMs Normal Neck: Full Range of Motion, Non-Tender, Normal, Normal Inspection Respiratory: Chest Non-Tender, Lungs Clear, No Accessory Muscle Use, No Respiratory Distress, Normal Breath Sounds Cardiovascular: No Edema, No JVD, No Murmur, No Gallop, Normal Peripheral Pulses, Tachycardia Breast Exam: Deferred Gastrointestinal: No Organomegaly, Non Tender, No Pulsatile Mass, Normal Bowel Sounds, Soft Genitalia: Deferred Pelvic: Deferred Rectal: Deferred Extremities: No calf tenderness, Normal capillary refill, Normal inspection, Normal range of motion, Non-tender, No pedal edema Neurologic: Alert, trash collector II-XII nml as Tested, No Motor Deficits, Normal Affect, Normal Mood, No Sensory Deficits Cerebellar Function: Normal Reflexes: Normal Skin: Dry, Normal Color, Warm Lymphatic: No Adenopathy Was a procedure done? Was a procedure done?: No Differential Dx Considerations may include: NSTEMI, hypotension X-Ray, Labs, Meds, VS Vital Signs Date Time Temp Pulse Resp B/P (MAP) Pulse Ox O2 Delivery O2 Flow Rate FiO2 07/23/24 00:21 100.9 129 18 100/49 (66) 100 X-Ray, Labs, Meds, VS Comment Patient will continue the admission process for NSTEMI and hypotension. Time of 1ST Reevaluation: 00:42 Reevaluation 1ST: Unchanged Consultation: PCP, Cardiology Patient Education/Counseling: Diagnosis, Treatment Family Education/Counseling: Diagnosis, Treatment Departure 1 Departure Time of Disposition: 00:42 Impression: Primary Impression: NSTEMI (non-ST elevated myocardial infarction) Additional Impression: Hypotension Disposition: ADMITTED INPATIENT Condition: Stable Discharged With: Self Critical Care Note Critical Care Time?: No Stability Stability form required: No Heart Score Heart Score: Heart Score Response (Comments) Value History Slightly Suspicious 0 EKG Repolarization Disturb 1 Age >65 2 Risk Factors 1 or 2 risk factors 1 Troponin >3 x's Normal limit 2 Total 6 BEN LONG PAC Jul 23, 2024 00:38
[2024-07-23] MEDS: ACETAMINOPHEN 500 MG TAB PO ONE (00:58)
[2024-07-23] MEDS ORDERED: HYDROcodone-ACET 5/325MG TAB PO PRN (01:45)
[2024-07-23] MEDS ORDERED: ONDANSETRON HCL 4 MG/2 ML VIAL IV PRN (01:45)
[2024-07-23] MEDS: SODIUM CHLORIDE 0.9% 1,000 ML IV SCH (02:30)
--- NOTE | 2024-07-23 02:58 | DVHHP2 ---
History of Present Illness Reason for Visit: NSTEMI (non-ST elevated myocardial infarction) History of Present Illness The patient is a 69-year-old male who denies past medical history presented to [facility] ED for evaluation of NSTEMI and hypotension. Patient was [place] this morning but needed to leave the facility for family reasons but has returned. Patient complaint of mild dizziness, tachycardia, weakness that prompted this visit. The patient was seen and evaluated in the ED, laboratory data shows WBC 11.1, platelets 189, sodium 136, potassium 4.4, BUN 35, creatinine 2.32, glucose 199, hemoglobin A1c 7.4, total bilirubin 2.4, troponin 2673, D-dimer 2.31, blood pressure 104/57, heart rate 1 one two, temperature 99.3 F, O2 saturation 95% on oxygen. Please see medication orders section in the computer. On my assessment, patient denied chest pain, no headache, no dizziness, no diaphoresis, no shortness of breath, no nausea, no vomiting, no fever, no chills. Patient was admitted for further evaluation and medical management. Past Medical History Denies past medical history Past Surgical History Denies all surgeries Family History Reviewed, noncontributory to the management of this case. Past Social History The patient lives at home, denies smoking, alcohol or illicit drugs abuse. Review of Systems Constitutional: Yes: Weakness; No: Fever, Chills, Sweats, Malaise, Other Eyes: No: Pain, Vision change, Conjunctivae inflammation, Eyelid inflammation, Other, Redness ENT: No: Ear pain, Ear discharge, Nose pain, Nose discharge, Nose congestion, Mouth pain, Mouth swelling, Throat pain, Throat swelling, Other Respiratory: Shortness of breath; No: Cough, Dry, SOB with excertion, Wheezing, Hemoptysis, Pleuritic Pain, Sputum, Wheezing, Other Cardiovascular: No: Chest Pain, Palpitations, Orthopnea, Paroxysmal Noc. Dyspnea, Edema, Lt Headedness, Other Gastrointestinal: No: Nausea, Vomiting, Abdominal Pain, Diarrhea, Constipation, Melena, Hematochezia, Other Genitourinary: No Dysuria, No Frequency, No Incontinence, No Hematuria, No Retention, No Other Musculoskeletal: No: other, neck pain, shoulder pain, arm pain, back pain, hand pain, leg pain, foot pain Skin: No: Rash, Lesions, Jaundice, Bruising, Other Neurological: Other (Dizziness); No: Weakness, Numbness, Incoordination, Change in speech, Confusion, Seizures Allergies: Coded Allergies: NO KNOWN ALLERGIES (Unverified , 07/22/24) Medications Current Medications Medications Dose Ordered Sig/Glory Route Start Time Stop Time Status Last Admin Dose Admin Clopidogrel Bisulfate 75 mg DAILY PO 07/23/24 10:00 Sodium Chloride 1,000 ml @ 60 mls/hr [id number] IV 07/23/24 01:45 07/23/24 02:30 60 MLS/HR Acetaminophen/ Hydrocodone Bitart 1 tab Q4HP PRN PO 07/23/24 01:45 Ondansetron HCl 4 mg Q4HP PRN IV 07/23/24 01:45 Docusate Sodium 100 mg BIDPRN PRN PO 07/23/24 01:45 Acetaminophen 650 mg Q6HP PRN PO 07/23/24 01:45 Exam Vital Signs Vital Signs Date Time Temp Pulse Resp B/P (MAP) Pulse Ox O2 Delivery O2 Flow Rate FiO2 07/23/24 01:30 99.3 07/23/24 01:27 111 18 104/57 (73) 95 General Appearance: Alert, Oriented X3, Cooperative, No acute distress HEENT: Atraumatic, PERRLA, EOMI, Mucous membr. moist/pink Respiratory: Clear to auscultation, Normal air movement Cardiovascular: Regular rate, Normal S1, Normal S2, No murmurs Abdominal: Normal bowel sounds, Soft, No tenderness, No hepatospenomegaly, No masses Extremities: No clubbing, No cyanosis, No edema, Normal pulses, No tenderness/swelling Skin: No rashes, No breakdown, No significant lesion Neuro: Normal speech, Normal tone, Sensation intact, Cranial nerves 3-12 NL, Reflexes 2+, Other (Generalized weakness) Psych/Mental Status: Mental status NL, Mood NL Labs/Xrays Labs Test 07/23/24 02:27 Range/Units PATIENT: DELANEY RESENDIZ ACCT: [id number] UNIT: [id number] : 1955 LOC: TELE ROOM / BED: [address] [place] [address] AGE / SEX: 69 / M ADM STATUS: ADM IN SERVICE [id number] ORDERING PHYSICIAN: MARIALUISA ARMENDARIZ MD PROCEDURE(s): CTACH - CT ANGIO CHEST CONTRAST REASON: Chest pain ORDER NUMBER(s): [id number], ACCESSION NUMBER(s): [id number] CTA Chest with intravenous contrast INDICATION: Chest pain COMPARISON: None TECHNIQUE: Multidetector spiral CTA of the chest was performed of the chest with intravenous contrast. PULMONARY ANGIOGRAPHY PROTOCOL was utilized using a bolus- tracking technique centered on the main pulmonary artery. Axial, coronal and sagittal multiplanar and MIP reformats were performed. CONTRAST: Type of contrast: Omni 350 Contrast injected: 100 ml Radiation dose : Chest: CTDI volume is 47 mGy. Dose-length product is 848 mGy*cm The dose indicators for CT are the volume computed Tomography (CT) dose Index (CTDIvol) and the dose Length product (DLP), and are measured in units of mGy and mGy-cm, respectively. These indicators are not patient dose, but values generated from the CT scanner acquisition factors. The report includes radiation exposure data for exposures received during this examination. Findings: Limited by motion. Pulmonary artery: No large central or large segmental pulmonary embolism. Lower neck: Normal thyroid. Lungs: Low lung volumes. Patchy atelectasis in both lungs. No suspicious nodule or consolidation identified. Heart/Vascular Structures: Normal heart size. No pericardial effusion. Lymph Nodes: No adenopathy Pleura: No pleural effusion or significant pneumothorax. Musculoskeletal: No acute osseous abnormality. Soft tissues: Normal. Upper abdomen: Limited portions of the upper abdomen are unremarkable. IMPRESSION: 1. Limited by motion. No large central pulmonary embolism. 2. No acute thoracic finding. ORDERING PHYSICIAN: MARIALUISA ARMENDARIZ MD PROCEDURE(s): CXRP - CHEST PORTABLE REASON: SYNCOPE ORDER NUMBER(s): [id number], ACCESSION NUMBER(s): [id number] CHEST RADIOGRAPH Indication: SYNCOPE Technique: Single frontal view of the chest was obtained Comparison: None FINDINGS: Lines and Tubes: None Lungs: No focal consolidation. Pleura: No effusion. No pneumothorax. Cardiomediastinal contours: Unremarkable Bones: No acute osseous abnormality. IMPRESSION: No acute cardiopulmonary disease. Bronchovascular crowding due to low lung volume Assessment/Plan Assessment/Plan NSTEMI (non-ST elevated myocardial infarction) Hypotension Elevated D-dimer Acute renal injury New onset type 2 diabetes mellitus Generalized weakness Plan 1. Admit to telemetry unit 2. Breathing treatment 3. Pain control management 4. Management of fluids and electrolytes 5. Consultation for Cardiology/Nephrology 6. Diagnostic tests V/Q scan 7. DVT prophylaxis-on aspirin 8. Repeat labs CBC, CMP in a.m. 9. Continue with current medical management 10. Treatment plan discussed with patient and RN. Patient verbalized understanding. Plan discussed with: Patient, Other (RN) My Orders Orders - KEELEY ERAZO DNP Procedure Category Date Status Time Complete Blood Count LAB 07/23/24 In Process 01:41 Comprehensive LAB 07/23/24 In Process Metabolic Panel 01:41 Troponin-I Hs LAB 07/23/24 In Process 01:41 Troponin-I Hs LAB 07/23/24 Logged 04:41 Clopidogrel Bisulfate PHA 07/23/24 In Process (Plavix) 10:00 Allergies KYMBERLY 07/23/24 In Process 01:41 Code Status CODE 07/23/24 Transmitted 01:41 Sodium Chloride 0.9% PHA 07/23/24 In Process 01:45 Oxygen Per Hour RT 07/23/24 Transmitted 01:41 Hydrocodone-Acet PHA 07/23/24 In Process 5/325mg Tab (Sherman 01:45 Ondansetron Hcl PHA 07/23/24 In Process (Zofran) 01:45 Docusate Sodium PHA 07/23/24 In Process Capsule (Colace 01:45 Fall Risk Precautions KYMBERLY 07/23/[address] 01:41 Complete Blood Count LAB 07/24/24 Verified 04:00 Comprehensive LAB 07/24/24 Verified Metabolic Panel 04:00 Cardiac DIET 07/23/24 Transmitted Diet-2gna,Lofat,Lochol Breakfast Condition: Serious KYMBERLY 07/23/24 In Process 01:41 Acetaminophen Tablet PHA 07/23/24 In Process (Tylenol Tablet) 01:45 Sequential KYMBERLY 07/23/24 In Process Compression Device Problem List: (1) NSTEMI (non-ST elevated myocardial infarction) (2) Acute renal injury (3) Elevated d-dimer (4) New onset type 2 diabetes mellitus (5) Hypotension (6) Generalized weakness Date of Service: Jul 23, 2024 Billing Provider: KEELEY ERAZO DNP Common Visit Codes: [id number] INP/OBS CARE (HIGH) KEELEY ERAZO DNP Jul 23, 2024 02:58
[2024-07-23] MEDS ORDERED: MORPHINE SULFATE INJ 2 MG/ml SYRG IV PRN (03:00)
[2024-07-23] MEDS ORDERED: NITROGLYCERIN 0.4 MG SL TAB SL PRN (03:00)
[2024-07-23 03:13] LABS: Hematocrit 34.2 % (41.0-53.0); Hemoglobin 11.6 g/dL (13.5-17.5); Mean Corpuscular Hemoglobin 31.5 pg (28.0-32.0); Mean Corpuscular Hgb Conc. 33.8 g/dL (32.0-36.0); Platelet Count (auto) 164 10^3/uL (140-450); Red Blood Cells 3.68 10^6/uL (4.5-5.90); Red Cell Distribution Width 12.9 % (11.8-14.3); White Blood Cell 11.6 10^3/uL (4.4-10.8)
[2024-07-23 03:29] LABS: Alanine Aminotransferase 22 U/L (7-40); Alkaline Phosphatase 88 U/L (46-116); Anion Gap 10 (5-15); Aspartate Aminotransferase 25 U/L (13-40); BUN/Creatinine Ratio 15.6 (10.0-20.0); Calcium 9.3 mg/dL (8.7-10.4); Carbon Dioxide 20 mmol/L (20-31); Chloride 105 mmol/L (98-107); Potassium 3.8 mmol/L (3.5-5.1); Total Protein 6.2 g/dL (5.7-8.2)
[2024-07-23 03:40] LABS: Basophils % (manual) 0 (0.0-2.0); Blast Cells 0; Eosinophils % (manual) 0 (0-7); Metamyelocytes % 0; Myelocytes % 0; Promyelocytes % 0; Reactive Lymphocytes 0
[2024-07-23] MEDS ORDERED: DEXTROSE (50%) 50ML SYRG IV PRN (03:45)
[2024-07-23] MEDS: ASPirin 81 mg TAB PO ONE (03:52)
[2024-07-23 03:55] LABS: Bilirubin, Total 2.7 mg/dL (0.2-1.0); Blood Urea Nitrogen 32 mg/dL (9-23); Glucose 183 mg/dL (74-106); Sodium 135 mmol/L (136-145)
[2024-07-23 05:16] LABS: Band Neutrophils % (manual) 3; Lymphocytes % (manual) 5 (10.0-50.0); Monocytes % (manual) 3 (0-12); Platelet Estimate Adequate
--- NOTE | 2024-07-23 05:41 | ECG ---
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
[2024-07-23] MEDS: ACCU-CHEK COMFORT CURVE STRIP VI SCH (06:35)
[2024-07-23] MEDS: InsuLIN REG 1unit/0.01ml Soln (100units/ml) SC SCH (06:35)
[2024-07-23 10:10] LABS: Basophils # (auto) 0 10 ^3/uL (0-0.2); Basophils % (auto) 0.1 % (0.0-2.0); Eosinophils # (auto) 0 10 ^3/uL (0-0.8); Eosinophils % (auto) 0.1 % (0.0-7.0); Hematocrit 33.2 % (41.0-53.0); Hemoglobin 11.1 g/dL (13.5-17.5); Lymphocytes # (auto) 0.4 10 ^3/uL (0.4-5.4); Lymphocytes % (auto) 3.1 % (10.0-50.0); Mean Corpuscular Hemoglobin 31.2 pg (28.0-32.0); Mean Corpuscular Hgb Conc. 33.6 g/dL (32.0-36.0); Mean Corpuscular Volume 92.8 fL (80.0-100.0); Monocytes # (auto) 0.7 10 ^3/uL (0-1.3); Monocytes % (auto) 5.7 % (0.0-12.0); Neutrophils # (auto) 11.9 10 ^3/uL (1.6-8.6); Platelet Count (auto) 158 10^3/uL (140-450); Red Blood Cells 3.58 10^6/uL (4.5-5.90); Red Cell Distribution Width 12.9 % (11.8-14.3); White Blood Cell 13.1 10^3/uL (4.4-10.8)
[2024-07-23 10:10] LABS: Magnesium 2.1 mg/dL (1.6-2.6)
[2024-07-23 10:11] LABS: Alanine Aminotransferase 25 U/L (7-40); Albumin 3.5 g/dL (3.2-4.8); Alkaline Phosphatase 82 U/L (46-116); Anion Gap 8 (5-15); Aspartate Aminotransferase 26 U/L (13-40); BUN/Creatinine Ratio 19.4 (10.0-20.0); Calcium 8.8 mg/dL (8.7-10.4); Carbon Dioxide 23 mmol/L (20-31); Chloride 106 mmol/L (98-107); Potassium 4.1 mmol/L (3.5-5.1); Sodium 137 mmol/L (136-145)
[2024-07-23 10:14] LABS: Phosphorus 1.5 mg/dL (2.4-5.1)
[2024-07-23 10:15] LABS: Bilirubin, Total 2.5 mg/dL (0.2-1.0); Blood Urea Nitrogen 42 mg/dL (9-23); Glucose 227 mg/dL (74-106); INR 1.1 (0.9-1.15); Partial Thromboplastin Time 35.5 SEC (24.5-34.5); Prothrombin Time 11.6 sec (9.3-11.8); Total Protein 5.5 g/dL (5.7-8.2)
--- NOTE | 2024-07-23 10:21 | DVHINCON2 ---
Date Seen: Jul 23, 2024 Referring Physician Ami Reason for Consultation NSTEMI History of Present Illness This is a 69-year-old man who presented to the emergency room via EMS with a chief complaint of near syncope. The patient reports he was driving his car and upon pulling over and exiting he developed increased lightheadedness and dizziness with a bystander calling 911. Upon EMS arrival he was found with a systolic blood pressure in the 80s mmHg and to be tachycardic. The patient endorses some of his symptoms also includes chills and pyrexia up to 101 F for the past 2-3 days. He underwent multiple 12 lead electrocardiograms revealing a normal sinus rhythm without discernible ischemia. Initial troponin level was found >2,900 ng/L prompting a STAT cardiology consultation. Denies chest pain, palpitations, shortness of breath, or syncopal events. The patient was witnessed walk back from the bathroom without any obvious symptoms. Significant medical history includes hypertension, dyslipidemia, prediabetes, CAD s/p stent proximally 13 years ago and obesity. Of note, the patient was recently prescribed isosorbide mononitrate 30 mg and benazepril 20 mg within the past month. Patient was here the day prior and had to leave abruptly to take care some financial matters and returns to the ER. Repeat EKG 07/23/2024 reviewed and shows normal sinus rhythm at 98 beats per minute, LVH. No acute ST abnormalities noted. Past Medical History HTN, CAD s/p stent 13 years prior, prediabetes on metformin, dyslipidemia. Past Surgical History Cardiac catheterization s/p stent 13 years ago Family History Denies pertinent family cardiac history Social History Denies tobacco, alcohol, or illicit drug use. Allergies: Coded Allergies: NO KNOWN ALLERGIES (Unverified , 07/22/24) Current Medications Current Medications Medications (Trade) Dose Ordered Sig/Glory Route PRN Reason Start Time Stop Time Status Last Admin Clopidogrel Bisulfate (Plavix) 75 mg DAILY PO 07/23/24 10:00 Sodium Chloride 1,000 ml @ 60 mls/hr [id number] IV 07/23/24 01:45 07/23/24 02:30 Acetaminophen/ Hydrocodone Bitart ([place] 5/325MG Tab) 1 tab Q4HP PRN PO MODERATE PAIN (4-6 PAIN SCALE) 07/23/24 01:45 Ondansetron HCl (Zofran) 4 mg Q4HP PRN IV NAUSEA / VOMITING 07/23/24 01:45 Docusate Sodium (Colace Capsule) 100 mg BIDPRN PRN PO FOR CONSTIPATION 07/23/24 01:45 Acetaminophen (Tylenol Tablet) 650 mg Q6HP PRN PO PAIN SCALE 1-3 OR TEMP>100.4 07/23/24 01:45 Nitroglycerin (Ntrostat Sublingual) 0.4 mg Q5MINP PRN SL FOR CHEST PAIN 07/23/24 03:00 Morphine Sulfate 2 mg Q30M PRN IV FOR CHEST PAIN 07/23/24 03:00 Aspirin 81 mg DAILY PO 07/24/24 10:00 Diagnostic Test (Pha) (Accu-Chek Comfort Curve T) 1 strip ACHS 07/23/24 07:00 07/23/24 06:35 Insulin Human Regular (InsuLIN R) ACHS SC 07/23/24 07:00 07/23/24 06:35 Dextrose 50 ml UD PRN IV Blood Sugar LESS THAN 60 07/23/24 03:45 Review of Systems Constitutional: No: Fever, Chills, Sweats, Weakness, Malaise, Other Eyes: No: Pain, Vision change, Conjunctivae inflammation, Eyelid inflammation, Other, Redness ENT: No: Ear pain, Ear discharge, Nose pain, Nose discharge, Nose congestion, Mouth pain, Mouth swelling, Throat pain, Throat swelling, Other Respiratory: No: Cough, Dry, Shortness of breath, SOB with exertion, Wheezing, Hemoptysis, Pleuritic Pain, Sputum, Wheezing, Other Cardiovascular: ; No: Chest Pain Palpitations, Orthopnea, Paroxysmal Noc. Dyspnea, Edema, Lt Headedness, Other Gastrointestinal: No: Nausea, Vomiting, Abdominal Pain, Diarrhea, Constipation, Melena, Hematochezia, Other Genitourinary: No Dysuria, No Frequency, No Incontinence, No Hematuria, No Retention, No Other Musculoskeletal: neck pain; No: other, shoulder pain, arm pain, back pain, hand pain, leg pain, foot pain Skin: No: Rash, Lesions, Jaundice, Bruising, Other Neurological: Other (Dizziness, headache.); No: Weakness, Numbness, Incoordination, Change in speech, Confusion, Seizures Vital Signs Vital Signs Date Time Temp Pulse Resp B/P (MAP) Pulse Ox O2 Delivery O2 Flow Rate FiO2 07/23/24 08:00 98.2 79 12 103/69 (80) 98 98.2 07/23/24 08:00 Room Air* 0 21 Physical Exam General appearance: Patient is well-developed, well-nourished, in no acute distress. HEENT: Exam shows: Normocephalic, atraumatic, PERRLA, EOMI Neck: Supple, no bruits Chest: Equal chest excursion bilaterally. Breath sounds normal-no rales or wheezes. Heart: Rhythm: Regular rate; no murmur or gallop Abdomen: Exam shows: Soft, nontender, nondistended Musculoskeletal: No clubbing, no cyanosis, no lower extremity edema Dermatology: Skin warm, moist. Neurological: Exam shows: Alert and oriented x4, normal speech Available prior records, labs, EKG, rhythm strips reviewed and interpreted Labs/Diagnostic Data Labs Test 07/23/24 05:41 07/23/24 03:28 07/23/24 02:27 Range/Units Troponin I High Sensitivity 1426 *H </=54 ng/L Differential Total Cells Counted 100.0 100 Neutrophils % (Manual) 89 H 37.0-80.0 Band Neutrophils % (Manual) 3 Lymphocytes % (Manual) 5 L 10.0-50.0 Monocytes % (Manual) 3 0-12 Eosinophils % (Manual) 0 0-7 Basophils % (Manual) 0 0.0-2.0 Metamyelocytes % (manual) 0 Myelocytes % (Manual) 0 Promyelocytes % (Manual) 0 Blast Cells % (Manual) 0 Reactive Lymphocytes 0 Platelet Estimate Adequate Assessment * NSTEMI - likely type 2 LA. Trending down. Denies chest pain or any cardiac symptoms. EKG negative for acute ischemic changes. Follow-up echo. Continue on Plavix and statin. * HTN - Hold BP meds in setting of hypotension * CAD s/p Stent - Plavix and statin * Dyslipidemia - statin * Hypotension, - Hx HTN. Hold BP meds for now. Follow up ECHO. * Sepsis? - management per primary team. * Elevated D-Dimer - CT angio Negative for PE. * Elevated BNP - Breathing stable. CXR and CT chest negative. Follow up ECHO. * MACKENZIE versus CKD - nephrology on board. Continue monitoring. Avoid nephrotoxic agents. Case Discussed with Dr Boswell. Follow-up echo. Continue medical management. Not a candidate for ischemic workup at this time due to elevated kidney function as well as patient not having cardiac symptoms. Recommend outpatient ischemic workup pending normal echo. Continue with medical management. Critical care, time spent: 38 minutes This medical document was created using an electronic medical record system with voice recognition software and computerized dictation system. Although this document has been carefully reviewed, there might still be some phonetic and typographical errors. Occasional wrong-word or ``sound-alike substitutions may have occurred due to the inherent limitations of voice recognition software. These areas are purely typographical due to imperfections of the software pro grams and do not reflect any compromise in the patient's medical care. Please read the chart carefully and recognize, using context, where these substitutions have occurred. Portion of the chart may have been created with voice recognition software. Occasional wrong word or sound-alike substitutions may have occurred due to the inherent limitations of voice recognition software. Please read the chart carefully and recognize, using contacts, where the substitutions have occurred. Thank you for allowing me to participate in the management of this patient. The treatment plan was discussed with and agreed upon by patient/family i ncluding requesting consultants and ordering of imaging/procedures. Plan discussed with: Patient Date of Service: Jul 23, 2024 Billing Provider: JESSICA BOSWELL MD Cardiology Common Codes: [id number] INP/OBS CARE (High), [id number] CARE 30-74 MIN ANDRA MONTES AGACNP Jul 23, 2024 10:21
[2024-07-23] MEDS: CLOPIDOGREL BISULFATE 75 MG TAB PO SCH (10:46)
--- NOTE | 2024-07-23 10:57 | DVH ---
CHEST RADIOGRAPH Indication: NSTEMI Technique: Single frontal view of the chest was obtained COMPARISON: XY CHEST PORTABLE on DOS: 07/22/24 FINDINGS: Lines and Tubes: None Lungs: Probable mild interstitial pulmonary edema. Pleura: No effusion. No pneumothorax. Cardiomediastinal contours: Unremarkable Bones: Unremarkable IMPRESSION: 1. Probable mild interstitial pulmonary edema.
--- NOTE | 2024-07-23 11:22 | DVH ---
INDICATION: MACKENZIE TECHNIQUE: Multiple real-time sonographic images of the kidneys and bladder were obtained. COMPARISON: None FINDINGS: The right kidney measures 8.7 cm in length. Diffusely increased echogenicity which may reflect chroni c medical renal disease. No hydronephrosis or large masses/calculi are seen. The left kidney measures 9.6 cm in length. Diffusely increased echogenicity which may reflect chronic medical renal disease. No hydronephrosis or large masses/calculi are seen. No large intraluminal masses are seen in the bladder. Urinary bladder is underdistention measuring 54 mL. IMPRESSION: 1. No hydronephrosis. 2. Echogenic bilateral kidneys suggestive of chronic medical renal disease.
[2024-07-23 12:17] LABS: Lactic Acid w/Reflex 2.7 mmol/L (0.4-2.0)
[2024-07-23] MEDS: cefTRIAXone 1GM/50ML D5W 50 ML IV ONE (12:35)
[2024-07-23] MEDS ORDERED: VANCOMYCIN PER PHARMACY 0 MG IV SCH (13:00)
--- NOTE | 2024-07-23 13:34 | DVHSR ---
APPROVED REPORT EXAM: Two-dimensional and M-mode echocardiogram with Doppler and color Doppler. Blood Pressure: 103/69 mmHg INDICATION NSTEMI RISK FACTORS Obesity: Height: 5'6", Weight: 224 DIMENSIONS LVDd (3.8-5.7cm)LA (2D)3.7 (1.9-4.0cm)Aortic Root (2.0-3.7cm) EF (%) 59.0 (55-70%)Rt. Atrium3.9 (1.9-4.0cm)Asc. Aorta cm IVSd (0.7-1.1cm)RV (D)3.8 (1.8-2.4cm) Mitral Valve MitralMitral Stenosis E wave1.26m/sMV Mean GR.mmHg A wave1.40m/sMV Peak GR.mmHg E/A ratio0.92D MVAcm2 DECEL [id number] 1/2 [place] Aortic Valve Aortic ValveAortic Stenosis V11.26m/Jose Carlos Mean GR.7mmHg V21.84m/Jose Carlos Peak GR.14mmHg LVOT Diameter2.3 (1.8-2.4cm)Doppler AVA2.84cm2 Tricuspid Valve TR Velocity3.50m/s [id number] Other Information Quality : LimitedRhythm : Technically limited study due to body habitus, patient short of breath. Conclusion Normal left ventricular size and dimension. Normal left ventricular systolic function estimated ejec tion fraction of 60%. There is a grade 1 diastolic dysfunction. Normal right ventricular size and dimension. Normal right ventricular systolic function. Moderately elevated right ventricular systolic pressure 49 mm of mercury. Normal biatrial size and dimension. Normal aortic valve structure and function. Normal mitral valve structure and function. Normal tricuspid valve structure and function. There is trivial tricuspid valve regurgitation. The pulmonary valve is grossly normal. No pericardial effusion.
[2024-07-23] MEDS: SODIUM CHLORIDE 0.9% 1,900 ML IV ONE (13:45)
--- NOTE | 2024-07-23 13:52 | DVHINCON2 ---
Date of service: Jul 23, 2024 Referring Physician Joshua Mueller NP Reason for Consultation acute kidney injury History of Present Illness Mr. Zaragoza is a 69-year-old male with known history of diabetes, self- reported chronic kidney disease who presents for further evaluation and management of several day history of progressive chills, fever at home. He is seen in the emergency department. He is awake, conversant and is able to participate in the history. He denies recent gross hematuria, dysuria, productive cough, sick contacts or excessive use of NSAIDs. Past Medical History chronic kidney disease Diabetes Obesity Allergies: Coded Allergies: NO KNOWN ALLERGIES (Unverified , 07/22/24) Current Medications Current Medications Medications (Trade) Dose Ordered Sig/Glory Route PRN Reason Start Time Stop Time Status Last Admin Clopidogrel Bisulfate (Plavix) 75 mg DAILY PO 07/23/24 10:00 07/23/24 10:46 Sodium Chloride 1,000 ml @ 60 mls/hr [id number] IV 07/23/24 01:45 07/23/24 02:30 Acetaminophen/ Hydrocodone Bitart ([place] 5/325MG Tab) 1 tab Q4HP PRN PO MODERATE PAIN (4-6 PAIN SCALE) 07/23/24 01:45 Ondansetron HCl (Zofran) 4 mg Q4HP PRN IV NAUSEA / VOMITING 07/23/24 01:45 Docusate Sodium (Colace Capsule) 100 mg BIDPRN PRN PO FOR CONSTIPATION 07/23/24 01:45 Acetaminophen (Tylenol Tablet) 650 mg Q6HP PRN PO PAIN SCALE 1-3 OR TEMP>100.4 07/23/24 01:45 Nitroglycerin (Ntrostat Sublingual) 0.4 mg Q5MINP PRN SL FOR CHEST PAIN 07/23/24 03:00 Morphine Sulfate 2 mg Q30M PRN IV FOR CHEST PAIN 07/23/24 03:00 Aspirin 81 mg DAILY PO 07/24/24 10:00 Diagnostic Test (Pha) (Accu-Chek Comfort Curve T) 1 strip ACHS 07/23/24 07:00 07/23/24 11:32 Insulin Human Regular (InsuLIN R) ACHS SC 07/23/24 07:00 07/23/24 06:35 Dextrose 50 ml UD PRN IV Blood Sugar LESS THAN 60 07/23/24 03:45 Ceftriaxone Sodium 50 ml @ 100 mls/hr DAILY@09 IV 07/24/24 09:00 Metronidazole 100 ml @ 100 mls/hr Q8HR IV 07/23/24 14:00 Vancomycin HCl 0 ml @ 0 mls/hr UD IV 07/23/24 13:00 UNV Review of Systems as per history of present illness otherwise all systems are reviewed and are noncontributory. H&P Exam Vital Signs/I&O Vital Sign Date Time Temp Pulse Resp B/P (MAP) Pulse Ox O2 Delivery O2 Flow Rate FiO2 07/23/24 11:34 131 07/23/24 10:05 16 134/74 (94) 97 07/23/24 08:00 98.2 98.2 07/23/24 08:00 Room Air* 0 21 Intake and Output 07/22/24 07/23/24 19:00 07:00 Intake Total 150 ml Balance 150 ml Intake IV Total 150 ml Physical Exam gen: no acute distress, mildly ill-appearing however heent: mmm lungs: cta cvs: no rub abd: soft ext: no edema skin: no rash neuro: awake and alert, no focal deficits Labs/Diagnostic Data Labs/Diagnostic Data Laboratory Tests Test 07/23/24 11:31 07/23/24 11:30 07/23/24 05:41 07/23/24 03:28 Range/Units POC Glucose 128 H 70-106 mg/dl Lactic Acid Level 2.7 *H 0.4-2.0 mmol/L Ammonia < 10 L 11-32 umol/L Troponin I High Sensitivity 875 *H 1426 *H </=54 ng/L White Blood Count 13.1 H 4.4-10.8 10^3/uL Red Blood Count 3.58 L 4.5-5.90 10^6/uL Hemoglobin 11.1 L 13.5-17.5 g/dL Hematocrit 33.2 L 41.0-53.0 % Mean Corpuscular Volume 92.8 80.0-100.0 fL Mean Corpuscular Hemoglobin 31.2 28.0-32.0 pg Mean Corpuscular Hemoglobin Concent 33.6 32.0-36.0 g/dL Red Cell Distribution Width 12.9 11.8-14.3 % Platelet Count 158 140-450 10^3/uL Mean Platelet Volume 9.6 6.9-10.8 fL Neutrophils (%) (Auto) 91.0 H 37.0-80.0 % Lymphocytes (%) (Auto) 3.1 L 10.0-50.0 % Monocytes (%) (Auto) 5.7 0.0-12.0 % Eosinophils (%) (Auto) 0.1 0.0-7.0 % Basophils (%) (Auto) 0.1 0.0-2.0 % Neutrophils # (Auto) 11.9 H 1.6-8.6 10 ^3/uL Lymphocytes # (Auto) 0.4 0.4-5.4 10 ^3/uL Monocytes # (Auto) 0.7 0-1.3 10 ^3/uL Eosinophils # (Auto) 0 0-0.8 10 ^3/uL Basophils # (Auto) 0 0-0.2 10 ^3/uL Nucleated Red Blood Cells 0.0 % Prothrombin Time 11.6 9.3-11.8 sec Prothrombin Time INR 1.10 0.9-1.15 Activated Partial Thromboplast Time 35.5 H 24.5-34.5 SEC Sodium Level 137 136-145 mmol/L Potassium Level 4.1 3.5-5.1 mmol/L Chloride Level 106 98-107 mmol/L Carbon Dioxide Level 23 20-31 mmol/L Anion Gap 8 5-15 Blood Urea Nitrogen 42 #H 9-23 mg/dL Creatinine 2.17 H 0.700-1.30 mg/dL Glomerular Filtration Rate Calc 32 >90 mL/min BUN/Creatinine Ratio 19.4 10.0-20.0 Serum Glucose 227 H 74-106 mg/dL Calcium Level 8.8 8.7-10.4 mg/dL Total Bilirubin 2.5 H 0.2-1.0 mg/dL Aspartate Amino Transferase (AST) 26 13-40 U/L Alanine Aminotransferase (ALT) 25 7-40 U/L Alkaline Phosphatase 82 46-116 U/L Total Protein 5.5 L 5.7-8.2 g/dL Albumin 3.5 3.2-4.8 g/dL Phosphorus Level 1.5 L 2.4-5.1 mg/dL Magnesium Level 2.1 1.6-2.6 mg/dL Triglycerides Level 108 < 150 mg/dL Cholesterol Level 96 < 200 mg/dL LDL Cholesterol 43 < 100 mg/dL HDL Cholesterol 30 L 40-59 mg/dL Thyroid Stimulating Hormone (TSH) 0.15 L 0.55-4.78 uIU/mL Test 07/23/24 02:27 Range/Units White Blood Count 11.6 H 4.4-10.8 10^3/uL Red Blood Count 3.68 L 4.5-5.90 10^6/uL Hemoglobin 11.6 L 13.5-17.5 g/dL Hematocrit 34.2 L 41.0-53.0 % Mean Corpuscular Volume 93.0 80.0-100.0 fL Mean Corpuscular Hemoglobin 31.5 28.0-32.0 pg Mean Corpuscular Hemoglobin Concent 33.8 32.0-36.0 g/dL Red Cell Distribution Width 12.9 11.8-14.3 % Platelet Count 164 140-450 10^3/uL Mean Platelet Volume 9.1 6.9-10.8 fL Neutrophils (%) (Auto) 37.0-80.0 % Lymphocytes (%) (Auto) 10.0-50.0 % Monocytes (%) (Auto) 0.0-12.0 % Basophils (%) (Auto) 0.0-2.0 % Neutrophils # (Auto) 1.6-8.6 10 ^3/uL Lymphocytes # (Auto) 0.4-5.4 10 ^3/uL Monocytes # (Auto) 0-1.3 10 ^3/uL Differential Total Cells Counted 100.0 100 Neutrophils % (Manual) 89 H 37.0-80.0 Band Neutrophils % (Manual) 3 Lymphocytes % (Manual) 5 L 10.0-50.0 Monocytes % (Manual) 3 0-12 Eosinophils % (Manual) 0 0-7 Basophils % (Manual) 0 0.0-2.0 Metamyelocytes % (manual) 0 Myelocytes % (Manual) 0 Promyelocytes % (Manual) 0 Blast Cells % (Manual) 0 Reactive Lymphocytes 0 Platelet Estimate Adequate Sodium Level 135 L 136-145 mmol/L Potassium Level 3.8 3.5-5.1 mmol/L Chloride Level 105 98-107 mmol/L Carbon Dioxide Level 20 20-31 mmol/L Anion Gap 10 5-15 Blood Urea Nitrogen 32 H 9-23 mg/dL Creatinine 2.05 H 0.700-1.30 mg/dL Glomerular Filtration Rate Calc 35 >90 mL/min BUN/Creatinine Ratio 15.6 10.0-20.0 Serum Glucose 183 H 74-106 mg/dL Calcium Level 9.3 8.7-10.4 mg/dL Total Bilirubin 2.7 H 0.2-1.0 mg/dL Aspartate Amino Transferase (AST) 25 13-40 U/L Alanine Aminotransferase (ALT) 22 7-40 U/L Alkaline Phosphatase 88 46-116 U/L Troponin I High Sensitivity 1471 *H </=54 ng/L Total Protein 6.2 5.7-8.2 g/dL Albumin 4.0 3.2-4.8 g/dL Assessment IMP: 1) hemodynamically mediated acute kidney injury, possible prerenal state 2) CKD III? 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 Thank you for the consultation. Plan discussed with: Patient GRETA THOMAS MD Jul 23, 2024 13:52
[2024-07-23] MEDS: metroNIDAZOLE 500MG/100ML 100 ML IV SCH (14:00)
[2024-07-23] MEDS: metroNIDAZOLE 500MG/100ML 100 ML IV ONE (14:13)
[2024-07-23] MEDS: ACETAMINOPHEN 325 MG TAB PO PRN (14:13)
--- NOTE | 2024-07-23 14:32 | DVH ---
Procedure: CT CT AB PEL WO CON-NO ORAL OR IV 07/23/2024 12:25 PM Indication: R/O APPEDNDICITIS AND DIVERTICULITIS Comparison Study: None available at time of dictation. Technique: Axial images were obtained and reformatted in coronal and sagittal planes. All CT scans at this medical facility are performed using dose modulation techniques as appropriate t o a performed exam including the following: Automated exposure control was utilized; adjustment of th e MA and/or KV according to patient size; and use of iterative reconstruction technique. CT Dose: CTDI volume is 21.27 mGy. Dose-length product is 1224.61 mGy*cm FINDINGS: Lower Chest: The heart is normal in size. Heavy coronary artery calcification seen.. Hepatobiliary: Hepatic steatosis. Cholelithiasis with no evidence for cholecystitis. Spleen: Unremarkable. Pancreas: Unremarkable. Adrenal Glands: Unremarkable. tract: The kidneys are normal in size bilaterally without hydronephrosis or nephrolithiasis. Cont rast seen in gallbladder lumen from IV contrast injection the day before 4 CT angiogram of the chest. GI tract: The stomach is grossly normal in appearance. No evidence of small bowel obstruction. The la rge bowel is unremarkable. Dilated appendix measuring 1.2 cm in caliber containing fecal like materi al. No appendicolith is seen. Moderate periappendiceal inflammation. No evidence of perforation. Lymphatics: No mesenteric, retroperitoneal or periportal lymphadenopathy. Vasculature: Aorta is normal in caliber. Scattered calcified plaques are noted. Pelvic Organs: Unremarkable Bones/soft tissues: No acute abnormality. Multilevel degenerative changes of the lumbar spine noted. Other: None. IMPRESSION: 1. Findings compatible with acute non complicated appendicitis with no evidence for perforation phleg mon or abscess formation. 2. Cholelithiasis with no evidence for cholecystitis. 3. Hepatic steatosis.
[2024-07-23] MEDS: VANCOMYCIN 1GM/250ML KIT 250 ML IV ONE (15:13)
--- NOTE | 2024-07-23 15:17 | DVHPNRES ---
Progress Note Date Seen: Jul 23, 2024 Resident Creating Document: NICOL HOLLINS RESIDENT Medical Necessity Reason Pt with a Central, PICC or Fol: No Subjective Review of Systems Omi Zaragoza is a 69 year old male patient who presents to the ED with chief complaint of diffuse abdominal pain and posteriorly evolved to right lower quadrant pain which started 3-4 days before his admission, associated with dizziness, palpitations chills and dyspnea in functional class IV. Patient reports progressively worsening of symptoms, prompting his visit. He was evaluated one day before his admission diagnosed with NSTEMI, but patient left AMA. Patient had to revisit ED for worsening symptoms. Denies syncope, chest pain, nausea, vomiting, diarrhea, dysuria, recent travel, different eating habits, sick contacts and motor or sensitive deficits. Past medical history: Hypertension, dyslipidemia, diabetes, CAD with questionable MA status post coronary stent placement and presented CVA on same admission, Diverticulosis with one episode of diverticulitis 5 years ago. Surgical history: Right knee surgery, PCI with stent placement 20 years ago. Family history: Non contributory Social history: Lives in [place] with family. Denies current tobacco, alcohol and other drug abuse. Allergies: Denies Home medication: Plavix (aspirin was discontinued proximally two months ago, currently on single antiplatelet therapy), statins, rest of medication does not recall (does take antidiabetic medication and blood pressure medication) Patient seen and examined at bedside. Patient continues with abdominal pain in RLQ associated with chills. Ordered abdomen and pelvis CT which showed non complicated appendicitis, have spoken with neurosurgical physician assistant fiction and nonfiction writer prose. Objective vital signs Vital Sign Date Time Temp Pulse Resp B/P (MAP) Pulse Ox O2 Delivery O2 Flow Rate FiO2 07/23/24 14:13 101.7 07/23/24 12:00 124 07/23/24 10:05 16 134/74 (94) 97 07/23/24 08:00 Room Air* 0 21 Total Intake and Output 07/22/24 07/22/24 07/23/24 14:59 22:59 06:59 Intake Total 150 ml Balance 150 ml medications Current Medications Medications Dose Ordered Sig/Glory Route Start Time Stop Time Status Last Admin Dose Admin Clopidogrel Bisulfate 75 mg DAILY PO 07/23/24 10:00 07/23/24 10:46 75 MG Sodium Chloride 1,000 ml @ 60 mls/hr [id number] IV 07/23/24 01:45 07/23/24 02:30 60 MLS/HR Acetaminophen/ Hydrocodone Bitart 1 tab Q4HP PRN PO 07/23/24 01:45 Ondansetron HCl 4 mg Q4HP PRN IV 07/23/24 01:45 Docusate Sodium 100 mg BIDPRN PRN PO 07/23/24 01:45 Acetaminophen 650 mg Q6HP PRN PO 07/23/24 01:45 07/23/24 14:13 650 MG Nitroglycerin 0.4 mg Q5MINP PRN SL 07/23/24 03:00 Morphine Sulfate 2 mg Q30M PRN IV 07/23/24 03:00 Aspirin 81 mg DAILY PO 07/24/24 10:00 Diagnostic Test (Pha) 1 strip ACHS 07/23/24 07:00 07/23/24 11:32 1 STRIP Insulin Human Regular ACHS SC 07/23/24 07:00 07/23/24 06:35 4 UNITS Dextrose 50 ml UD PRN IV 07/23/24 03:45 Ceftriaxone Sodium 50 ml @ 100 mls/hr DAILY@09 IV 07/24/24 09:00 Metronidazole 100 ml @ 100 mls/hr Q8HR IV 07/23/24 14:00 Vancomycin HCl 0 ml @ 0 mls/hr UD IV 07/23/24 13:00 Examination Patient lying in bed, in no acute distress General: Lucid, afebrile, mucosae are moist Cardiovascular: Normal S1 and S2. No murmurs, gallops or rubs Respiratory: Normal ventilation mechanics. Clear lung sounds on auscultation Abdomen: Distended, diffuse tenderness, positive McBurney sign, no organomegaly, reduced bowel sounds MSK/skin: Mobilizes 4 limbs. Skin is dry and warm Neurological: Oriented in 3 spheres. No motor no sensitive deficits. Pupils are isocoric and reactive laboratory and microbiology Laboratory Tests 07/23/24 05:41 Test 07/23/24 05:41 Range/Units Serum Glucose 227 H 74-106 mg/dL Labs and/or images reviewed: Labs reviewed by me, Image(s) reviewed by me Problem List/Assessment/Plan Problem List/Assessment/Plan Acute appendicitis Completed abdomen and pelvis CT: Acute uncomplicated appendicitis with no evidence of perforation, phlegmon or abscess fitness specialist on board: Planning on surgical intervention on 07/23/2024 Septic shock due to acute appendicitis On admission patient had fever, tachycardia, hyperlacticacidemia and leukocytosis Currently un empiric IV antibiotics (Ceftriaxone and Metronidazole) Currently on IV fluids Ordered blood, urine and sputum culture Continue IV vasopressors as indicated NSTEMI probable type II Due to above Cardiology on board: No inpatient indication for ischemia work-up. Follow up as out-patient. Recommend resolving secondary causes Completed echocardiogram: LVEF 60%, grade 1 diastolic dysfunction, RVSP 49mmHg, rest of study within normal limits. Have discontinued clopidogrel, continue with aspirin at this point. MACKENZIE hemodynamically mediated (unknown baseline creatinine) Probably secondary to sepsis Currently on IV fluids Completed renal ultrasound: No hydronephrosis, echogenic bilateral kidneys suggestive of chronic medical renal disease Nephrology on board: Will follow closely along CAD with questionable history of MA - status post PCI 20 years ago Currently on aspirin and atorvastatin Diverticulosis with history of diverticulitis Last flare-up was approximately five years ago. Abdomen and pelvis CT did not show any signs of diverticulitis Questionable PCP consumption UDS pending PCP Obesity Gave her advice on healthy lifestyle habits Goals of care discussed with patient for 20 minutes: Full code status 150 minutes of critical care time Discussed plan with Dr. Michele, patient and nurses: Planning to complete surgical intervention for acute appendicitis. Patient signed consents and agrees with plan of action, have extensively explained risk of bleeding due to administration of Plavix, the patient is hemodynamically unstable and with sepsis, requires surgical intervention. Plan discussed with: Patient, Other (Nurses) My Orders My Orders Orders - NICOL HOLLINS RESIDENT Procedure Category Date Status Time Vitamin D, 25-Hydroxy LAB 07/23/24 In Process 09:36 Vitamin B12 LAB 07/23/24 In Process 09:36 Urinalysis LAB 07/23/24 Logged 09:36 Drug Screen LAB 07/23/24 Logged 09:36 Blood Culture MATILDA 07/23/24 In Process 09:36 Urine Bacterial MATILDA 07/23/24 Logged Culture 09:36 Respiratory Culture MATILDA 07/23/24 Logged W/ Gs 09:36 Covid19 Antigen Iesha LAB 07/23/24 Logged Rapid Influenza A&B LAB 07/23/24 Logged 09:36 Echo 2d Mode Cardiac US 07/23/24 Resulted DOP 09:36 Kidney US 07/23/24 Resulted 09:43 Osmolality Urine LAB 07/23/24 Logged 09:36 Urine Sodium LAB 07/23/24 Logged 09:36 Urine Potassium LAB 07/23/24 Logged 09:36 Chest Xray 1 View XY 07/23/24 Resulted 09:42 Urine LAB 07/23/24 Logged Protein/Creatinine 09:36 Ceftriaxone 1gm/50ml PHA 07/24/24 In Process D5w (Rocephin) 09:00 Metronidazole PHA 07/23/24 In Process 500mg/100ml (Flagyl 14:00 Ct Ab Pel Wo Con-No CT 07/23/24 Resulted Oral Or Iv 12:17 * Surgical Consult CONS 07/23/24 Transmitted Npo (Nothing By DIET 07/23/24 Transmitted Mouth) Diet Dinner Critical Care Time (mins): 150 Addendum Addendum Addendum I was physically present for the russo portions of the service provided to patient by THE RESIDENT. I have reviewed the documentation, discussed the case with resident and agree with the resident's documentation except as noted. Also the patient's clinical case was discussed with the patient's nurse. This medical document was created using an electronic medical record system with computerized dictation system. Although this document has been carefully reviewed, there might still be some phonetic and typographical errors. These areas are purely typographical due to imperfections of the software programs, and do not reflect any compromise in the patient's medical care. Late signature. Date of Service: Jul 23, 2024 Billing Provider: JERALD MICHELE MD Common Visit Codes: 83108-EKUFDXNE CARE 30-74 MIN (150 minutes), 12841-FIHPUZHZ CARE-EACH +30MIN Secondary Visit Codes: 82549-KQALOYLG CARE PLAN 30 MINUTES (20 minutes) NICOL HOLLINS Jul 23, 2024 15:17 JERALD MICHELE MD Jul 24, 2024 06:10
[2024-07-23] MEDS ORDERED: MIDAZOLAM HCL 2MG/2ML 2ml VIAL (1mg/ml) ONE (15:27)
[2024-07-23] MEDS ORDERED: fentaNYL CITRATE 100 MCG/2 ML VL ONE (15:27)
[2024-07-23] MEDS ORDERED: LIDOCAINE HCL 100 MG/5ML (2%) SYRG INJ IV ONE (15:28)
[2024-07-23] MEDS ORDERED: KETAMINE 50mg/ML 10ml Vial 10 ML ONE (15:28)
[2024-07-23] MEDS ORDERED: GLYCOPYRROLATE 0.2 MG/ML 1ML VIAL ONE (15:34)
[2024-07-23] MEDS: SUCCINYLCHOLINE CHLORIDE 20 MG/ML 10ML VIAL IV ONE (15:36)
[2024-07-23] MEDS: ONDANSETRON HCL 4 MG/2 ML VIAL IV ONE (16:00)
[2024-07-23] MEDS ORDERED: HYDROmorphone HCL 2 MG/ML VL/or syr IV PRN ×3 (16:00)
[2024-07-23 16:16] LABS: Urine Bacteria None Seen /hpf (None Seen)
[2024-07-23 16:31] LABS: Sodium Urine 95 mmol/L (40-220)
[2024-07-23 16:35] LABS: Urine Amorphous Crystal FEW /hpf (None Seen); Urine Blood 2+ /uL (Negative); Urine Clarity Clear (Clear); Urine Color Yellow (Yellow); Urine Protein, UAD 2+ (Negative); Urine Urobilinogen Normal (Negative); Urine WBC 1 /hpf (0 - 3); Urine pH 5.5 (5.0-9.0)
[2024-07-23 16:36] LABS: Protein, Urine 165.9 mg/dL (1-14)
[2024-07-23 16:38] LABS: Amphetamine Screen, Urine Neg (NEGATIVE); Barbiturate Scree,Urine Neg (NEGATIVE); Benzodiazephine Screen, Urine Neg (NEGATIVE)
[2024-07-23] MEDS: VASOPRESSIN 20 UNIT/ML ONE (16:38)
[2024-07-23] MEDS: ALBUMIN 5% 250 ML IV ONE (16:38)
[2024-07-23 16:39] LABS: Cannabinoid Screen, Urine Neg (NEGATIVE); Cocaine Screen, Urine Neg (NEGATIVE); Creatinine, Urine 71.99 mg/dL (30.0-125.0); Opiate Scree,Urine Neg (NEGATIVE)
[2024-07-23] MEDS: NOREPINEPHRINE 8 MG/250ML KIT 250 ML IV STA (16:39)
[2024-07-23] MEDS: LIDOCAINE 1% HCL (LOCAL ANESTH.) INJ 20ML MDV ONE (16:40)
[2024-07-23] MEDS: BUPIVACAINE HCL 0.25% P/F 10 ML VIAL ONE (16:40)
[2024-07-23] MEDS ORDERED: ROCURONIUM 10MG/ML 10ML VIAL IV ONE (17:08)
[2024-07-23] MEDS ORDERED: SUGAMMADEX 200mg/2ml Vial (100MG/ML) IV ONE (17:10)
--- NOTE | 2024-07-23 17:23 | ECG ---
[facility] Test Date: 2024-07-23 Test Time: 11:22:28 Pat Name: DELANEY RESENDIZ Department: ER Room: [address] [place] [address] Gender: M Base Manager: CATHY : 1955 Requested By: JERALD MICHELE Order Number: [id number] Reading MD: Measurements Intervals [place] Rate: 131 P: 141 MT: 161 QRS: -13 QRSD: 94 T: 170 QT: 243 QTc: 359 Interpretive Statements Sinus or ectopic atrial tachycardia Repol abnrm suggests ischemia, diffuse leads Please click the below link to view image of tracing.
[2024-07-23] MEDS ORDERED: MORPHINE SULFATE 4 MG/ML SYR/VIAL IV PRN (17:45)
--- NOTE | 2024-07-23 18:30 | DVHOP ---
DATE OF SURGERY: 07/23/2024 PREOPERATIVE DIAGNOSIS: Acute appendicitis. POSTOPERATIVE DIAGNOSIS: Nonperforated acute appendicitis. PROCEDURE: Laparoscopic converted to open lysis of adhesions and appendectomy. SURGEON: Brad Christianson MD FLIGHT MANAGER: None. NURSE MONEY POSITION OFFICER: Jaime Hendricks. ANESTHESIA: General by means of endotracheal intubation. INTRAOPERATIVE FINDINGS: Nonperforated acute appendicitis, retroperitonealized involving the mesentery of the terminal ileum. ESTIMATED BLOOD LOSS: Approximately 150 mL. INTRAVENOUS FLUIDS: Per anesthesia charting. URINE OUTPUT: Not recorded given the Harrell catheter was not inserted. DRAINS: None. IMPLANTS: Endo-AIDA cindi. SPECIMENS: Appendix. COMPLICATIONS: None other than extremely difficult procedure secondary to the above-mentioned intraoperative findings adding complexity as well as time to an otherwise routine procedure. Procedure well tolerated and transferred to recovery room in the stable condition. INDICATIONS FOR PROCEDURE: The patient is an unfortunate 69-year-old male who came to the Emergency Department complaining of right lower quadrant abdominal pain for 4 days. The patient was diagnosed with acute appendicitis based on the above-mentioned information, I had a lengthy discussion with the patient and recommended laparoscopic, possible open appendectomy. The procedure, risks and benefits were explained in a detailed and extensive fashion. He was made aware of increased risk of bleeding because he is still taking Plavix as well as a cardiac event given his cardiac condition, particularly with active sepsis and labile hemodynamics. He understood and agreed to proceed. DESCRIPTION OF PROCEDURE: The patient was taken to the operating room. He was placed in the dorsal decubitus position on the operating room table. Once adequate anesthesia was achieved, the abdomen was widely prepped and draped in the usual sterile fashion. My attention was directed towards the periumbilical region where local anesthesia consisting of 1% lidocaine/0.5% Marcaine was infiltrated. The abdominal wall was retracted anteriorly by means of towel clamps and a Veress needle was inserted into the abdominal cavity. Pneumoperitoneum of 15 mmHg was achieved. My attention was directed towards the epigastric region where a 12 mm trocar was placed. A 5 mm 30 degree laparoscope was inserted into the abdominal cavity. A thorough survey of the abdominal cavity did not reveal any evidence of injury or bleeding upon entry. The patient was noted to have a distended sigmoid colon. The Veress needle was removed under direct laparoscopic visualization, the sigmoid colon and significant visceral adipose tissue. The Veress needle was removed under direct laparoscopic visualization. My attention was directed towards the left side of the abdomen where 5 mm trocars x2 were placed with preemptive local anesthesia as well as under direct laparoscopic visualization. My attention was directed towards the right lower quadrant region. The terminal ileum was noted to be densely adherent to what was suspected to be an underlying appendix. However, no safe access to the appendix was possible. The cecum was inspected and there was no inflammatory changes. Given the inability to safely dissect the terminal ileum from the what was suspected to be the appendix at the laparoscopic approach was aborted. A supra-infraumbilical midline incision was made with a 15 blade. The dermis and subcutaneous tissue were incised to the full extent of the skin incision with electrocautery. I inserted my index finger into the epigastric fascial defect retracted abdominal wall anteriorly and the fascia and peritoneum were incised over my finger to the full extent of the skin incision without injury to underlying structures. My attention was directed to the right lower quadrant region. Careful dissection of the appendix. The terminal ileum from the appendix was successfully completed with Metzenbaum scissors as well as finger fracture technique. There s exposed a retroperitonealized appendix, which was carefully dissected with Metzenbaum scissors as well as electrocautery without injury to any surrounding structures. The mesoappendix was densely adherent to the posterior abdominal wall. Using an Endo-AIDA stapler with a white cartridge, the mesoappendix was divided. A mesoappendiceal window was created at the base of the appendix and using the same stapler device with a blue cartridge, the appendix was divided at the base. A small segment of the mesoappendix was divided between clamps and the pannus was handed off to the instructed to send to pathology for further examination. The remaining mesoappendix was tied off with a 0 Vicryl tie. There was no evidence of active bleeding or injury. The area was copiously irrigated with 1 liter of sterile saline solution. The fluid was evacuated obtaining a clear effluent. There was no evidence of injury or bleeding on the final inspection. The fascia was closed with double stranded 0 PDS sutures. The skin incisions were closed with cindi. The wound was washed and dried and sterile dressings were applied. The patient tolerated well the procedure. There were no complications. He was successfully extubated in the operating room and transferred to recovery room in a stable condition. MD BEE Gray TID: [id number] RECEIPT: [id number]
[2024-07-23 19:13] LABS: Phencyclidine Screen, Urine Neg (NEGATIVE)
--- NOTE | 2024-07-23 19:50 | DVHINCON2 ---
DATE OF CONSULTATION: 07/23/2024 REQUESTING PROVIDER: Corinne Wei MD CONSULTING PHYSICIAN: Brad Christianson MD REASON FOR CONSULTATION: Acute appendicitis. HISTORY OF PRESENT ILLNESS: The patient is a 69-year-old male who came to the Emergency Room following the complaint of right lower quadrant abdominal pain for approximately 4 days. He had come yesterday to the hospital, but he left AMA because he had to feed his dogs. The ER worked him up with the presumptive diagnosis of non-STEMI, although the patient never complained of chest pain or shortness of breath. The patient clearly had stated that he had right lower quadrant abdominal pain. The patient denied fevers, chills, hemoptysis, hematemesis, bilious emesis, chest pain, shortness of breath, unintentional weight loss, night sweats, melena or hematochezia. PAST MEDICAL HISTORY: Morbid obesity, prediabetes, hypertension, hyperlipidemia, CAD, RI and CVA. PAST SURGICAL HISTORY: Right knee replacement and PTCA with coronary stenting. MEDICATIONS: The patient takes Plavix, antihyperlipidemic, antihypertensive medication and metformin. ALLERGIES: No known drug allergies. SOCIAL HISTORY: Denies smoking cigarettes, alcohol use, drug use, marijuana use or vaping. FAMILY HISTORY: Noncontributory. REVIEW OF SYSTEMS: NEURO: Negative. PSYCHIATRIC: Negative. ENDOCRINE: Negative. ENT: Negative. CARDIOVASCULAR: Negative. PULMONARY: Negative. GASTROINTESTINAL: As above. GENITOURINARY: Negative. HEME/ID: Negative. LYMPHATICS: Negative. MUSCULOSKELETAL: Negative. SKIN: Negative. PHYSICAL EXAMINATION: GENERAL: He is lying comfortably in bed. He is calm, pleasant and in no distress. He is febrile with temperature of 101.7 with tachycardia and hypertension. NEUROLOGIC: Grossly intact, alert, awake, oriented x3. HEAD, EARS, EYES, NOSE AND THROAT: Normocephalic. Pupils equally round. Extraocular muscles intact. Trachea is midline. HEART: Tachycardic with heart rates between 120s to 130s, hypertensive with a systolic blood pressure ranging from 122-155 and diastolic blood pressure ranging from 89-103. ABDOMEN: Soft, obese, nondistended with right lower quadrant tenderness with localized peritonitis. No diffuse peritonitis or rebound. EXTREMITIES: No edema or tenderness. LABORATORY DATA: His labs demonstrated white blood cell count of 13, hemoglobin 11, hematocrit 33. Chemistry is remarkable for BUN 42, creatinine 2.17, glucose 227. Lactic acid 2.7, elevated troponin 875. INR and PT are normal. PTT 35, which is mildly elevated. CT scan of the abdomen and pelvis was reviewed with corresponding report. I agree with interpretation of radiologist. There is evidence of a dilated appendix with significant periappendiceal stranding. There is also significant CAD, aortoiliac calcifications, cholelithiasis and hepatic steatosis. ASSESSMENT: A 69-year-old male with sepsis secondary to acute appendicitis. The patient has a history of coronary artery disease. Not a candidate for intervention. The patient was treated medically. The patient also has acute renal failure. PLANS AND RECOMMENDATIONS: I had a lengthy discussion with the patient. I have recommended an emergent laparoscopic and possible open appendectomy. The procedure, risks and benefits were explained in a detailed by extensive fashion. He was made aware of potential complications such as bleeding, infection, need for additional procedures, injury to internal organs, blood vessels and/or nerves, future bowel obstruction, staple line leak, blood clots in legs/lungs, heart attack, stroke and/or . All of his questions were answered. He understood and agreed to proceed. Thank you for allowing me to participate in the care of your patient. I will follow him with you. MD CHANI Gray/LIZBETH/TIP TID: [id number] RECEIPT: [id number]
[2024-07-23] MEDS: MORPHINE SULFATE INJ 2 MG/ml SYRG IV PRN (23:26)
[2024-07-24] VITALS (38 sets, daily range): BP systolic 92–139; BP diastolic 64–93; PULSE 81–100; RESP 10–19; TEMP 97.9–99; O2SAT 1–100
[2024-07-24] MEDS: SODIUM CHLORIDE 0.9% 1,000 ML IV SCH (01:30)
[2024-07-24 04:28] LABS: Basophils # (auto) 0 10 ^3/uL (0-0.2); Basophils % (auto) 0.2 % (0.0-2.0); Eosinophils # (auto) 0 10 ^3/uL (0-0.8); Eosinophils % (auto) 0.1 % (0.0-7.0); Hematocrit 32.6 % (41.0-53.0); Hemoglobin 10.9 g/dL (13.5-17.5); Lymphocytes # (auto) 0.7 10 ^3/uL (0.4-5.4); Mean Corpuscular Hemoglobin 31.2 pg (28.0-32.0); Mean Corpuscular Hgb Conc. 33.5 g/dL (32.0-36.0); Mean Corpuscular Volume 93.2 fL (80.0-100.0); Monocytes # (auto) 0.8 10 ^3/uL (0-1.3); Neutrophils # (auto) 8.8 10 ^3/uL (1.6-8.6); Neutrophils % (auto) 84.7 % (37.0-80.0); Platelet Count (auto) 150 10^3/uL (140-450); Red Cell Distribution Width 13.1 % (11.8-14.3); White Blood Cell 10.4 10^3/uL (4.4-10.8)
[2024-07-24 04:49] LABS: Alanine Aminotransferase 35 U/L (7-40); Albumin 3.5 g/dL (3.2-4.8); Alkaline Phosphatase 83 U/L (46-116); Anion Gap 11 (5-15); BUN/Creatinine Ratio 18.3 (10.0-20.0); Carbon Dioxide 20 mmol/L (20-31); Magnesium 2.3 mg/dL (1.6-2.6); Phosphorus 3.3 mg/dL (2.4-5.1); Potassium 4.2 mmol/L (3.5-5.1); Sodium 140 mmol/L (136-145); Total Protein 5.8 g/dL (5.7-8.2)
[2024-07-24 05:23] LABS: Aspartate Aminotransferase 82 U/L (13-40); Blood Urea Nitrogen 33 mg/dL (9-23); Chloride 109 mmol/L (98-107); Glucose 140 mg/dL (74-106)
--- NOTE | 2024-07-24 08:05 | DVHPN2 ---
Progress Note Date Seen: Jul 24, 2024 Has the PT tested + for MRSA If YES, has PT been informed?: No Medical Necessity Reason Pt with a Central, PICC or Fol: No Subjective Review of Systems Pt seen earlier this AM in [facility] 8. He feels much better. Admits to incisional pain. No other complaints. He expressed gratitude towards care and services received. Objective vital signs Vital Sign Date Time Temp Pulse Resp B/P (MAP) Pulse Ox O2 Delivery O2 Flow Rate FiO2 07/24/24 07:34 87 16 137/7 07/24/24 06:45 100 07/24/24 06:00 Simple Mask* 6 50 07/24/24 04:00 99.0 99.0 Total Intake and Output 07/23/24 07/23/24 07/24/24 15:00 23:00 07:00 Intake Total 420 ml 185 ml 875 ml Output Total 590 ml Balance 420 ml 185 ml 285 ml medications Current Medications Medications Dose Ordered Sig/Glory Route Start Time Stop Time Status Last Admin Dose Admin Ondansetron HCl 4 mg Q4HP PRN IV 07/23/24 01:45 Docusate Sodium 100 mg BIDPRN PRN PO 07/23/24 01:45 Nitroglycerin 0.4 mg Q5MINP PRN SL 07/23/24 03:00 Morphine Sulfate 2 mg Q30M PRN IV 07/23/24 03:00 Aspirin 81 mg DAILY PO 07/24/24 10:00 Diagnostic Test (Pha) 1 strip ACHS 07/23/24 07:00 07/24/24 07:39 1 STRIP Insulin Human Regular ACHS SC 07/23/24 07:00 07/23/24 06:35 4 UNITS Dextrose 50 ml UD PRN IV 07/23/24 03:45 Ceftriaxone Sodium 50 ml @ 100 mls/hr DAILY@09 IV 07/24/24 09:00 Metronidazole 100 ml @ 100 mls/hr Q8HR IV 07/23/24 14:00 07/24/24 07:39 100 MLS/HR Norepinephrine Bitartrate 250 ml @ 3.75 mls/hr Q24H STAT IV 07/23/24 16:39 07/24/24 16:38 Sodium Chloride 1,000 ml @ 125 mls/hr Q8H IV 07/23/24 17:30 07/24/24 04:50 125 MLS/HR Morphine Sulfate 2 mg Q2HPRN PRN IV 07/23/24 17:45 07/24/24 07:34 2 MG Morphine Sulfate 5 mg Q4HPRN PRN IV 07/23/24 17:45 Famotidine 20 mg DAILY IV 07/24/24 10:00 Examination AFVSS. No pressors. Abdomen soft, obese, ND with mild incisional tenderness. Dressing with dry stable blood stain. Harrell with clear urine> Resolved leukocytosis and lactic acidosis. Hyperchloremia and resolving ARF. laboratory and microbiology Laboratory Tests 07/24/24 03:04 Test 07/24/24 03:04 Range/Units Serum Glucose 140 H 74-106 mg/dL Labs and/or images reviewed: Labs reviewed by me Problem List/Assessment/Plan Problems(with codes): (1) Acute appendicitis (2) Acute renal injury Problem List/Assessment/Plan Sepsis secondary to Acute appendicitis, S/P Lap to open WENDIE and appendectomy. Pt recovering well. Resolved leukocytosis and lactic acidosis. Continue IV Abx. CAD, questionable NSTEMI vs elevated troponin from increased cardiac demand from acute inflammatory process/sepsis compounded with ARF. Continue aspirin, may resume Plavix/antiplatelet therapy upon discharge. Continue IVF.Nephrology follow up. Correct electrolytes as needed. Continue DVT and GI prohylaxis. CLD. If tolerates, advance directly to diabetic cardiac diet. RISSC, tight glycemic control. OOB and ambulation. Physical therapy. Transfer to telemetry. Plan discussed with: Patient, Other (RN) My Orders My Orders Orders - MILES WHITESIDE MD Procedure Category Date Status Time Obtain Consent For: ORDERS 07/23/24 Transmitted 15:24 Obtain Consent For KYMBERLY 07/23/24 In Process Anesthesia 15:24 Norepinephrine 8 PHA 07/23/24 In Process Mg/250ml Kit 16:39 Sodium Chloride 0.9% PHA 07/23/24 In Process 17:30 Incentive Spirometry ORDERS 07/23/24 Transmitted 17:40 Ambulate X 4 Daily On ORDERS 07/23/24 Transmitted Pod #1 17:40 Out Of Bed Ambulate KYMBERLY 07/23/24 In Process 17:40 Morphine Sulfate PHA 07/23/24 In Process Injection 17:45 Morphine Sulfate PHA 07/23/24 In Process Injection 17:45 Famotidine Injection PHA 07/24/24 In Process (Pepcid Injection) 10:00 MILES WHITESIDE MD Jul 24, 2024 08:05
[2024-07-24] MEDS: cefTRIAXone 1GM/50ML D5W 50 ML IV SCH (09:01)
[2024-07-24] MEDS: ASPirin 81 mg TAB PO SCH (09:01)
[2024-07-24] MEDS: FAMOTIDINE (10MG/ML) 2ML VL IV SCH (09:01)
--- NOTE | 2024-07-24 09:41 | DVHPN2 ---
Subjective Decreasing abdominal pain and chills Reviewed: Care Plan, H&P, Labs, Medications, Previous Orders, Radiology, Other (Consultations) Changes from previous H/P or p: Changes Objective Vitals Vital Signs Date Time Temp Pulse Resp B/P (MAP) Pulse Ox O2 Delivery O2 Flow Rate FiO2 07/24/24 08:04 70 16 126/77 07/24/24 06:45 100 07/24/24 06:00 Simple Mask* 6 50 07/24/24 04:00 99.0 99.0 Intake/Output Intake and Output 07/24/24 07:00 Intake Total 1480 ml Output Total 590 ml Balance 890 ml Intake Oral 0 ml IV Total 1480 ml Output Urine Total 590 ml General Appearance: Alert, Oriented X3, Cooperative, No acute distress HEENT: Atraumatic Lungs: Clear to auscultation, Normal air movement Cardiovascular: Regular rate, Normal S1, Normal S2, No murmurs Abdomen: Other (Decreased bowel sounds; tenderness; multiple surgical dressings) Genitourinary: Other (Harrell's) Neuro: Normal speech, Cranial nerves 3-12 NL Psych/Mental Status: Mental status NL, Mood NL Medications Current Medications Medications Dose Ordered Sig/Glory Route Start Time Stop Time Status Last Admin Dose Admin Ondansetron HCl 4 mg Q4HP PRN IV 07/23/24 01:45 Docusate Sodium 100 mg BIDPRN PRN PO 07/23/24 01:45 Nitroglycerin 0.4 mg Q5MINP PRN SL 07/23/24 03:00 Morphine Sulfate 2 mg Q30M PRN IV 07/23/24 03:00 Aspirin 81 mg DAILY PO 07/24/24 10:00 Diagnostic Test (Pha) 1 strip ACHS 07/23/24 07:00 07/24/24 07:39 1 STRIP Insulin Human Regular ACHS SC 07/23/24 07:00 07/24/24 07:55 2 UNITS Dextrose 50 ml UD PRN IV 07/23/24 03:45 Ceftriaxone Sodium 50 ml @ 100 mls/hr DAILY@09 IV 07/24/24 09:00 07/24/24 09:01 100 MLS/HR Metronidazole 100 ml @ 100 mls/hr Q8HR IV 07/23/24 14:00 07/24/24 07:39 100 MLS/HR Norepinephrine Bitartrate 250 ml @ 3.75 mls/hr Q24H STAT IV 07/23/24 16:39 07/24/24 16:38 Sodium Chloride 1,000 ml @ 125 mls/hr Q8H IV 07/23/24 17:30 07/24/24 04:50 125 MLS/HR Morphine Sulfate 2 mg Q2HPRN PRN IV 07/23/24 17:45 07/24/24 07:34 2 MG Morphine Sulfate 5 mg Q4HPRN PRN IV 07/23/24 17:45 Famotidine 20 mg DAILY IV 07/24/24 10:00 07/24/24 09:01 20 MG Laboratory Results Laboratory Tests 07/24/24 03:04 Chemistry Test 07/24/24 03:04 Albumin 3.5 g/dL (3.2-4.8) Calcium Level 9.0 mg/dL (8.7-10.4) Magnesium Level 2.3 mg/dL (1.6-2.6) Phosphorus Level 3.3 mg/dL (2.4-5.1) Total Protein 5.8 g/dL (5.7-8.2) LFT Test 07/24/24 03:04 Alanine Aminotransferase (ALT) 35 U/L (7-40) Alkaline Phosphatase 83 U/L (46-116) Aspartate Amino Transferase (AST) 82 U/L (13-40) H Total Bilirubin 1.0 mg/dL (0.2-1.0) Urinalysis Test 07/23/24 16:14 Urine Color Yellow (Yellow) Urine Clarity Clear (Clear) Urine pH 5.5 (5.0-9.0) Urine Specific [place] 1.020 (1.001-1.035) Urine Protein 2+ (Negative) H Urine Ketones 1+ (Negative) H Urine Blood 2+ /uL (Negative) H Urine Nitrite Negative (Negative) Urine Bilirubin Negative (Negative) Urine Urobilinogen Normal mg/dL (Negative) Urine Leukocyte Esterase Negative /uL (Negative) Urine RBC 2 /hpf (0 - 3) Urine WBC 1 /hpf (0 - 3) Urine Squamous Epithelial Cells None seen /hpf (<5) Urine Amorphous Crystals Few /hpf (None Seen) Urine Bacteria None seen /hpf (None Seen) Urine Osmolality 550 mOsm/kg Urine Creatinine 71.99 mg/dL (30.0-125.0) Urine Protein/Creatinine Ratio 2.30 Urine Sodium 95 mmol/L (40-220) Urine Potassium 39 mmol/L (12-62) Urine Glucose Normal mg/dL (Normal) Urine Total Protein 165.9 mg/dL (1-14) H Labs and/or images reviewed: Labs reviewed by me, Image(s) reviewed by me Assessment/Plan Assessment/Plan A 69-year-old male patient; multiple comorbidities; who presented to the emergency department with chills and palpitations. #Septic shock due to acute pancreatitis with Gram-positive bacteremia; to restart IV vasopressors if indicated; now off IV vasopressors; ordered repeat of blood cultures; reviewed previous blood cultures; changed IV antibiotics from IV ceftriaxone to IV vancomycin based on blood culture results; continue IV metronidazole; continue monitoring #Lactic acidosis, leukocytosis, chills, and fever due to septic shock secondary to acute pancreatitis with a Gram-positive bacteremia; management as above; continue monitoring #MACKENZIE; vasomotor nephropathy in the setting of septic shock; avoid nephrotoxic agents; given IV boluses; continue IV fluids; continue monitoring #NSTEMI; likely type 2 PA; demand ischemia; telemetry; cardiology is following; reviewed echocardiogram; to restart aspirin, statin, and clopidogrel once cleared by surgery as per cardiology; cardiology is following; continue monitoring #Acute appendicitis status post laparoscopic converted to open with lysis of adhesions and appendectomy by general surgery on June 23, 2024; reviewed abdomen/pelvis CT; general surgery is following; to advance diet to clear liquid diet as per general surgery; continue monitoring #Palpitations secondary to tachycardia; resolved; most likely physiological due to septic shock/chills/fever; continue monitoring #Hypertensive heart disease with grade 1 diastolic dysfunction; keep holding hypertensive medication/s in the setting of septic shock; syncope monitoring #CAD status post stenting; to resume aspirin, statin, and clopidogrel upon c learance from general surgery as per per cardiology; continue monitor #Elevated D-dimer; most likely due to septic shock; pulmonary embolism ruled out was CTA; continue monitoring #Normocytic anemia; unclear etiology; could be inflammatory; no signs/symptoms of active bleeding; continue monitoring #Dyslipidemia; to resume statin upon discharge; continue monitoring #Morbid obesity with metabolic syndrome; counseled the patient on the importance of adopting healthy lifestyle with diet and exercise in order to lose weight; continue monitoring Goals of care re-discussed for 20 minutes; full code. 55 minutes of critical care time. Late Entry. This medical document was created using an electronic medical record system with computerized dictation system. Although this document has been carefully reviewed, there might still be some phonetic and typographical errors. These areas are purely typographical due to imperfections of the software programs, and do not reflect any compromise in the patient's medical care. Plan discussed with: Patient, Other Date of Service: Jul 24, 2024 Billing Provider: JERALD MICHELE MD Common Visit Codes: 30900-[id number] CARE 30-74 MIN (55 minutes) Secondary Visit Codes: [id number] CARE PLAN 30 MINUTES (20 minutes) JERALD MICHELE MD Jul 24, 2024 09:41
--- NOTE | 2024-07-24 11:04 | DVHPN2 ---
Consult Progress Note Objective vital signs Vital Sign Date Time Temp Pulse Resp B/P (MAP) Pulse Ox O2 Delivery O2 Flow Rate FiO2 07/24/24 10:46 94 18 137/77 07/24/24 10:00 95 Simple Mask* 6 50 07/24/24 08:00 97.9 97.9 Total Intake and Output 07/23/24 07/23/24 07/24/24 15:00 23:00 07:00 Intake Total 420 ml 185 ml 875 ml Output Total 590 ml Balance 420 ml 185 ml 285 ml medications Current Medications Medications Dose Ordered Sig/Glory Route Start Time Stop Time Status Last Admin Dose Admin Ondansetron HCl 4 mg Q4HP PRN IV 07/23/24 01:45 Docusate Sodium 100 mg BIDPRN PRN PO 07/23/24 01:45 Nitroglycerin 0.4 mg Q5MINP PRN SL 07/23/24 03:00 Morphine Sulfate 2 mg Q30M PRN IV 07/23/24 03:00 Aspirin 81 mg DAILY PO 07/24/24 10:00 Diagnostic Test (Pha) 1 strip ACHS 07/23/24 07:00 07/24/24 07:39 1 STRIP Insulin Human Regular ACHS SC 07/23/24 07:00 07/24/24 07:55 2 UNITS Dextrose 50 ml UD PRN IV 07/23/24 03:45 Ceftriaxone Sodium 50 ml @ 100 mls/hr DAILY@09 IV 07/24/24 09:00 07/24/24 09:01 100 MLS/HR Metronidazole 100 ml @ 100 mls/hr Q8HR IV 07/23/24 14:00 07/24/24 07:39 100 MLS/HR Norepinephrine Bitartrate 250 ml @ 3.75 mls/hr Q24H STAT IV 07/23/24 16:39 07/24/24 16:38 Sodium Chloride 1,000 ml @ 125 mls/hr Q8H IV 07/23/24 17:30 07/24/24 04:50 125 MLS/HR Morphine Sulfate 2 mg Q2HPRN PRN IV 07/23/24 17:45 07/24/24 10:46 2 MG Morphine Sulfate 5 mg Q4HPRN PRN IV 07/23/24 17:45 Famotidine 20 mg DAILY IV 07/24/24 10:00 07/24/24 09:01 20 MG laboratory and microbiology Laboratory Tests 07/24/24 03:04 Test 07/24/24 03:04 Range/Units Serum Glucose 140 H 74-106 mg/dL Problem List/Assessment/Plan Problem List/Assessment/Plan Assessment * NSTEMI - likely type 2 NM. Trending down. Denies chest pain or any cardiac symptoms. EKG negative for acute ischemic changes. Normal EF on echo.. Continue on Plavix and statin once cleared by surgery. * HTN - Hold BP meds in setting of hypotension * CAD s/p Stent - Plavix and statin to be restarted upon discharge * Dyslipidemia - statin * Hypotension, - Hx HTN. Hold BP meds for now. Follow up ECHO. * Sepsis, acute appendicitis- continue empiric antibiotics. S/p appendectomy. Continue management per General surgery. * Elevated D-Dimer - CT angio Negative for PE. * Elevated BNP - Breathing stable. CXR and CT chest negative. Follow up ECHO. * MACKENZIE versus CKD - nephrology on board. Continue monitoring. Avoid nephrotoxic agents. * Tachycardia - resolved. physiologic in nature in setting of sepsis and febrile temperatures. Echo with normal EF, no significant valvular structural abnormalities. Case Discussed with Dr Boswell. Normal EF on echo. Continue medical management. Not a candidate for ischemic workup at this time due to elevated kidney function , acute appendicitis. Patient s/p appendectomy.. Recommend outpatient ischemic workup. Continue with medical management. We will sign off. There is no further cardiac work-up indicated at this time. Thank you for allowing us to participate in this patient's care. Will sign off. This medical document was created using an electronic medical record system with voice recognition software and computerized dictation system. Although this document has been carefully reviewed, there might still be some phonetic and typographical errors. Occasional wrong-word or ``sound-alike substitutions may have occurred due to the inherent limitations of voice recognition software. These areas are purely typographical due to imperfections of the software programs and do not reflect any compromise in the patient's medical care. Please read the chart carefully and recognize, using context, where these substitutions have occurred. Portion of the chart may have been created with voice recognition software. Occasional wrong word or sound-alike substitutions may have occurred due to the inherent limitations of voice recognition software. Please read the chart carefully and recognize, using contacts, where the substitutions have occurred. Thank you for allowing me to participate in the management of this patient. The treatment plan was discussed with and agreed upon by patient/family including requesting consultants and ordering of imaging/procedures. Plan discussed with: Patient Date of Service: Jul 24, 2024 Billing Provider: JESSICA BOSWELL MD Common Visit Codes: [id number] INP/OBS CARE(HIGH) ANDRA MONTES AGACNP Jul 24, 2024 11:04
[2024-07-24] MEDS ORDERED: VANCOMYCIN PER PHARMACY 0 MG IV SCH (13:15)
--- NOTE | 2024-07-24 17:13 | DVHPN2 ---
Progress Note - Dictate Date Seen: Jul 24, 2024 Has the PT tested + for MRSA If YES, has PT been informed?: No Medical Necessity Reason Pt with a Central, PICC or Fol: No Subjective Patient seen earlier today in the ICU he received surgical intervention for acute appendicitis. States that he feels better vital signs Vital Sign Date Time Temp Pulse Resp B/P (MAP) Pulse Ox O2 Delivery O2 Flow Rate FiO2 07/24/24 15:04 101 18 131/77 07/24/24 12:00 99 Nasal Cannula* 4 36 07/24/24 12:00 98.3 98.3 Total Intake and Output 07/23/24 07/23/24 07/24/24 15:00 23:00 07:00 Intake Total 420 ml 185 ml 875 ml Output Total 590 ml Balance 420 ml 185 ml 285 ml medications Current Medications Medications Dose Ordered Sig/Glory Route Start Time Stop Time Status Last Admin Dose Admin Ondansetron HCl 4 mg Q4HP PRN IV 07/23/24 01:45 Docusate Sodium 100 mg BIDPRN PRN PO 07/23/24 01:45 Nitroglycerin 0.4 mg Q5MINP PRN SL 07/23/24 03:00 Morphine Sulfate 2 mg Q30M PRN IV 07/23/24 03:00 Aspirin 81 mg DAILY PO 07/24/24 10:00 Diagnostic Test (Pha) 1 strip ACHS 07/23/24 07:00 07/24/24 11:44 1 STRIP Insulin Human Regular ACHS SC 07/23/24 07:00 07/24/24 11:45 3 UNITS Dextrose 50 ml UD PRN IV 07/23/24 03:45 Metronidazole 100 ml @ 100 mls/hr Q8HR IV 07/23/24 14:00 07/24/24 14:34 100 MLS/HR Sodium Chloride 1,000 ml @ 125 mls/hr Q8H IV 07/23/24 17:30 07/24/24 15:00 125 MLS/HR Morphine Sulfate 2 mg Q2HPRN PRN IV 07/23/24 17:45 07/24/24 14:34 2 MG Morphine Sulfate 5 mg Q4HPRN PRN IV 07/23/24 17:45 Famotidine 20 mg DAILY IV 07/24/24 10:00 07/24/24 09:01 20 MG Vancomycin HCl 0 ml @ 0 mls/hr UD IV 07/24/24 13:15 Acetaminophen 650 mg Q6HP PRN PO 07/24/24 17:15 UNV objective gen: nad, well appearing lungs: cta cvs: no rub exT: no edema laboratory and microbiology Laboratory Tests 07/24/24 03:04 Test 07/24/24 03:04 Range/Units Serum Glucose 140 H 74-106 mg/dL Assessment/Plan IMP: 1) hemodynamically mediated acute kidney injury, possible prerenal state 2) CKD III? 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
[2024-07-24] MEDS ORDERED: ACETAMINOPHEN 325 MG TAB PO PRN (17:15)
[2024-07-24] MEDS: VANCOMYCIN 1GM/250ML KIT 250 ML IV ONE (18:06)
--- NOTE | 2024-07-24 20:37 | DVHINCON2 ---
Date of service: Jul 24, 2024 Family History: FH: aneurysm G8 SISTER Ischemic heart disease G8 FATHER Allergies: Coded Allergies: NO KNOWN ALLERGIES (Unverified , 07/22/24) Current Medications Current Medications Medications (Trade) Dose Ordered Sig/Glory Route PRN Reason Start Time Stop Time Status Last Admin Aspirin 81 mg DAILY PO 07/24/24 10:00 Ceftriaxone Sodium 50 ml @ 100 mls/hr DAILY@09 IV 07/24/24 09:00 07/24/24 13:14 DC 07/24/24 09:01 Famotidine (Pepcid Injection) 20 mg DAILY IV 07/24/24 10:00 07/24/24 09:01 Vancomycin HCl 0 ml @ 0 mls/hr UD IV 07/24/24 13:15 Acetaminophen (Tylenol Tablet) 650 mg Q6HP PRN PO PAIN SCALE 1-3 OR TEMP>100.4 07/24/24 17:15 Vital Signs Vital Signs Date Time Temp Pulse Resp B/P (MAP) Pulse Ox O2 Delivery O2 Flow Rate FiO2 07/24/24 20:33 94 18 120/85 07/24/24 17:00 98.7 98 98.7 07/24/24 12:00 Nasal Cannula* 4 36 Labs/Diagnostic Data Labs Test 07/24/24 17:20 07/24/24 03:04 07/23/24 16:14 07/23/24 13:44 Range/Units POC Glucose 195 H 70-106 mg/dl White Blood Count 10.4 4.4-10.8 10^3/uL Red Blood Count 3.50 L 4.5-5.90 10^6/uL Hemoglobin 10.9 L 13.5-17.5 g/dL Hematocrit 32.6 L 41.0-53.0 % Mean Corpuscular Volume 93.2 80.0-100.0 fL Mean Corpuscular Hemoglobin 31.2 28.0-32.0 pg Mean Corpuscular Hemoglobin Concent 33.5 32.0-36.0 g/dL Red Cell Distribution Width 13.1 11.8-14.3 % Platelet Count 150 140-450 10^3/uL Mean Platelet Volume 9.9 6.9-10.8 fL Neutrophils (%) (Auto) 84.7 H 37.0-80.0 % Lymphocytes (%) (Auto) 7.0 L 10.0-50.0 % Monocytes (%) (Auto) 8.0 0.0-12.0 % Eosinophils (%) (Auto) 0.1 0.0-7.0 % Basophils (%) (Auto) 0.2 0.0-2.0 % Neutrophils # (Auto) 8.8 H 1.6-8.6 10 ^3/uL Lymphocytes # (Auto) 0.7 0.4-5.4 10 ^3/uL Monocytes # (Auto) 0.8 0-1.3 10 ^3/uL Eosinophils # (Auto) 0 0-0.8 10 ^3/uL Basophils # (Auto) 0 0-0.2 10 ^3/uL Nucleated Red Blood Cells 0.0 % Sodium Level 140 136-145 mmol/L Potassium Level 4.2 3.5-5.1 mmol/L Chloride Level 109 H 98-107 mmol/L Carbon Dioxide Level 20 20-31 mmol/L Anion Gap 11 5-15 Blood Urea Nitrogen 33 H 9-23 mg/dL Creatinine 1.80 H 0.700-1.30 mg/dL Glomerular Filtration Rate Calc 40 >90 mL/min BUN/Creatinine Ratio 18.3 10.0-20.0 Serum Glucose 140 H 74-106 mg/dL Calcium Level 9.0 8.7-10.4 mg/dL Phosphorus Level 3.3 2.4-5.1 mg/dL Magnesium Level 2.3 1.6-2.6 mg/dL Total Bilirubin 1.0 0.2-1.0 mg/dL Aspartate Amino Transferase (AST) 82 H 13-40 U/L Alanine Aminotransferase (ALT) 35 7-40 U/L Alkaline Phosphatase 83 46-116 U/L Total Protein 5.8 5.7-8.2 g/dL Albumin 3.5 3.2-4.8 g/dL Random Vancomycin Level 7.6 5-10 ug/mL Urine Color Yellow Yellow Urine Clarity Clear Clear Urine pH 5.5 5.0-9.0 Urine Specific [place] 1.020 1.001-1.035 Urine Protein 2+ H Negative Urine Ketones 1+ H Negative Urine Blood 2+ H Negative /uL Urine Nitrite Negative Negative Urine Bilirubin Negative Negative Urine Urobilinogen Normal Negative mg/dL Urine Leukocyte Esterase Negative Negative /uL Urine RBC 2 0 - 3 /hpf Urine WBC 1 0 - 3 /hpf Urine Squamous Epithelial Cells None seen <5 /hpf Urine Amorphous Crystals Few None Seen /hpf Urine Bacteria None seen None Seen /hpf Urine Osmolality 550 mOsm/kg Urine Creatinine 71.99 30.0-125.0 mg/dL Urine Protein/Creatinine Ratio 2.30 Urine Sodium 95 40-220 mmol/L Urine Potassium 39 12-62 mmol/L Urine Glucose Normal Normal mg/dL Urine Total Protein 165.9 H 1-14 mg/dL Urine Opiates Screen Neg NEGATIVE Urine Fentanyl Screen Neg NEGATIVE Urine Barbiturates Screen Neg NEGATIVE Urine Phencyclidine Screen Neg NEGATIVE Urine Amphetamines Screen Neg NEGATIVE Urine Benzodiazepines Screen Neg NEGATIVE Urine Cocaine Screen Neg NEGATIVE Urine Cannabinoids Screen Neg NEGATIVE Lactic Acid Level 1.7 0.4-2.0 mmol/L Test 07/23/24 11:30 07/23/24 05:41 07/23/24 03:28 07/23/24 02:27 Range/Units Ammonia < 10 L 11-32 umol/L Troponin I High Sensitivity 875 *H </=54 ng/L Prothrombin Time 11.6 9.3-11.8 sec Prothrombin Time INR 1.10 0.9-1.15 Activated Partial Thromboplast Time 35.5 H 24.5-34.5 SEC Triglycerides Level 108 < 150 mg/dL Cholesterol Level 96 < 200 mg/dL LDL Cholesterol 43 < 100 mg/dL HDL Cholesterol 30 L 40-59 mg/dL Thyroid Stimulating Hormone (TSH) 0.15 L 0.55-4.78 uIU/mL Differential Total Cells Counted 100.0 100 Neutrophils % (Manual) 89 H 37.0-80.0 Band Neutrophils % (Manual) 3 Lymphocytes % (Manual) 5 L 10.0-50.0 Monocytes % (Manual) 3 0-12 Eosinophils % (Manual) 0 0-7 Basophils % (Manual) 0 0.0-2.0 Metamyelocytes % (manual) 0 Myelocytes % (Manual) 0 Promyelocytes % (Manual) 0 Blast Cells % (Manual) 0 Reactive Lymphocytes 0 Platelet Estimate Adequate Microbiology Date/Time Source Procedure Growth Status 07/23/24 22:51 Nose MRSA Screen - Final Complete 07/23/24 16:14 Voided Urine Urine Culture - Preliminary Resulted 07/23/24 11:30 Blood Blood Culture - Preliminary Resulted ALEENA MCMILLAN MD Jul 24, 2024 20:37
[2024-07-25] VITALS (12 sets, daily range): BP systolic 123–142; BP diastolic 73–91; PULSE 58–114; RESP 16–19; TEMP 98–99; O2SAT 1–99
[2024-07-25 01:00] LABS: Rapid Influenza A Negative (Negative); Rapid Influenza B Negative (Negative)
[2024-07-25 01:01] LABS: COVID19 ANTIGEN SOFIA FIA NEGATIVE (NEGATIVE)
[2024-07-25] MEDS: DOCUSATE SOD 100 MG CAP PO PRN (03:31)
--- NOTE | 2024-07-25 06:28 | DVHPN2 ---
Progress Note Date Seen: Jul 25, 2024 Has the PT tested + for MRSA If YES, has PT been informed?: No Medical Necessity Reason Pt with a Central, PICC or Fol: No Subjective Review of Systems Pt feels better. Admits to episodes of mild nausea mild incisional pain and SOB. Denied vomiting, passing flatus or BM. Objective vital signs Vital Sign Date Time Temp Pulse Resp B/P (MAP) Pulse Ox O2 Delivery O2 Flow Rate FiO2 07/25/24 05:00 58 19 123/81 07/25/24 01:00 99.0 99 99.0 07/24/24 20:00 Simple Mask* 6 50 Total Intake and Output 07/24/24 07/24/24 07/25/24 15:00 23:00 07:00 Intake Total 936 ml 1000 ml Balance 936 ml 1000 ml medications Current Medications Medications Dose Ordered Sig/Glory Route Start Time Stop Time Status Last Admin Dose Admin Ondansetron HCl 4 mg Q4HP PRN IV 07/23/24 01:45 Docusate Sodium 100 mg BIDPRN PRN PO 07/23/24 01:45 07/25/24 03:31 100 MG Nitroglycerin 0.4 mg Q5MINP PRN SL 07/23/24 03:00 Morphine Sulfate 2 mg Q30M PRN IV 07/23/24 03:00 Aspirin 81 mg DAILY PO 07/24/24 10:00 Diagnostic Test (Pha) 1 strip ACHS 07/23/24 07:00 07/24/24 21:53 1 STRIP Insulin Human Regular ACHS SC 07/23/24 07:00 07/24/24 21:53 4 UNITS Dextrose 50 ml UD PRN IV 07/23/24 03:45 Metronidazole 100 ml @ 100 mls/hr Q8HR IV 07/23/24 14:00 07/25/24 05:24 100 MLS/HR Sodium Chloride 1,000 ml @ 125 mls/hr Q8H IV 07/23/24 17:30 07/25/24 03:32 125 MLS/HR Morphine Sulfate 2 mg Q2HPRN PRN IV 07/23/24 17:45 07/25/24 03:31 2 MG Morphine Sulfate 5 mg Q4HPRN PRN IV 07/23/24 17:45 Famotidine 20 mg DAILY IV 07/24/24 10:00 07/24/24 09:01 20 MG Vancomycin HCl 0 ml @ 0 mls/hr UD IV 07/24/24 13:15 Acetaminophen 650 mg Q6HP PRN PO 07/24/24 17:15 Examination AFVSS. Dyspneic, wheezing. Abdomen soft, obese, mildly distended and minimally tender. Incisions C/D/I. No I/S at bedside in spite of postop written orders and repeated verbal order to [facility] yesterday. Instructed RN today to provide I/S and call PT as well as they have no seen him either. Labs pending laboratory and microbiology Laboratory Tests 07/24/24 03:04 Test 07/24/24 03:04 Range/Units Serum Glucose 140 H 74-106 mg/dL Microbiology Date/Time Source Procedure Growth Status 07/23/24 22:51 Nose MRSA Screen - Final Complete 07/23/24 16:14 Voided Urine Urine Culture - Preliminary Resulted 07/23/24 11:30 Blood Blood Culture - Preliminary Resulted Labs and/or images reviewed: Labs reviewed by me Problem List/Assessment/Plan Problems(with codes): (1) Acute appendicitis (2) Acute renal injury Problem List/Assessment/Plan Bacteremia. GPC 2/2. Sepsis secondary to acute appendicitis, S/P Lap to open WENDIE and appendectomy. Pt recovering well. Continue IV Abx. CAD, questionable NSTEMI vs elevated troponin from increased cardiac demand from acute inflammatory process/sepsis compounded with ARF. Continue aspirin, may resume Plavix/antiplatelet therapy upon discharge. Decrease IVF rate. Dyspnea- CXR. Med nebs. I/S. I/S. Nephrology follow up. Correct electrolytes as needed. Continue DVT and GI prohylaxis. Continue CLD. Do not advance diet. RISSC, tight glycemic control. OOB and ambulation. Physical therapy. Continue telemetry. Plan discussed with: Patient, Other (RN) My Orders My Orders Orders - MILES WHITESIDE MD Procedure Category Date Status Time Communication Order ORDERS 07/24/24 Transmitted 07:55 D/C Har[place] [facility] 07/24/24 In Process 07:55 Pt Request For Service PT 07/24/24 Logged 07:55 Incentive Spirometry ORDERS 07/24/24 Transmitted Q 1hr 07:55 Ambulate Every 4hours [facility] 07/24/24 In Process 07:55 Clear Liq Diet DIET 07/24/24 Transmitted Breakfast Transfer Orders XFER 07/24/24 Transmitted 10:58 Sodium Chloride 0.9% PHA 07/25/24 In Process 06:30 MILES WHITESIDE MD Jul 25, 2024 06:28
[2024-07-25] MEDS: SODIUM CHLORIDE 0.9% 1,000 ML IV SCH (06:30)
[2024-07-25] MEDS ORDERED: VANCOMYCIN PER PHARMACY 0 MG IV SCH (06:30)
[2024-07-25 06:57] LABS: Alkaline Phosphatase 97 U/L (46-116); Anion Gap 8 (5-15); BUN/Creatinine Ratio 19.3 (10.0-20.0); Calcium 9.8 mg/dL (8.7-10.4); Carbon Dioxide 26 mmol/L (20-31); Potassium 4.4 mmol/L (3.5-5.1); Sodium 142 mmol/L (136-145)
[2024-07-25 06:58] LABS: Albumin 3.8 g/dL (3.2-4.8); Bilirubin, Total 1.2 mg/dL (0.2-1.0); Total Protein 6.1 g/dL (5.7-8.2)
[2024-07-25 06:59] LABS: Alanine Aminotransferase 45 U/L (7-40); Aspartate Aminotransferase 60 U/L (13-40); Blood Urea Nitrogen 33 mg/dL (9-23); Chloride 108 mmol/L (98-107); Glucose 175 mg/dL (74-106)
[2024-07-25] MEDS ORDERED: VANCOMYCIN 1.5GM/300ML 300 ML IV ONE (07:00)
[2024-07-25 07:03] LABS: Basophils # (auto) 0 10 ^3/uL (0-0.2); Basophils % (auto) 0.1 % (0.0-2.0); Eosinophils # (auto) 0.1 10 ^3/uL (0-0.8); Eosinophils % (auto) 0.6 % (0.0-7.0); Hematocrit 36.7 % (41.0-53.0); Hemoglobin 12.3 g/dL (13.5-17.5); Lymphocytes # (auto) 0.7 10 ^3/uL (0.4-5.4); Lymphocytes % (auto) 6.4 % (10.0-50.0); Mean Corpuscular Hemoglobin 31.1 pg (28.0-32.0); Mean Corpuscular Hgb Conc. 33.4 g/dL (32.0-36.0); Monocytes # (auto) 0.7 10 ^3/uL (0-1.3); Monocytes % (auto) 6.3 % (0.0-12.0); Neutrophils # (auto) 9.9 10 ^3/uL (1.6-8.6); Neutrophils % (auto) 86.6 % (37.0-80.0); Platelet Count (auto) 217 10^3/uL (140-450); Red Blood Cells 3.95 10^6/uL (4.5-5.90); Red Cell Distribution Width 12.9 % (11.8-14.3); White Blood Cell 11.5 10^3/uL (4.4-10.8)
--- NOTE | 2024-07-25 07:41 | DVH ---
CHEST RADIOGRAPH Indication: Dyspnea Technique: Single frontal view of the chest was obtained COMPARISON: XY CHEST XRAY 1 VIEW on DOS: 07/23/24, XY CHEST PORTABLE on DOS: 07/22/24 FINDINGS: Lines and Tubes: None Lungs: Low lung volumes Pleura: No effusion. No pneumothorax. Cardiomediastinal contours: Unremarkable Bones: Unremarkable IMPRESSION: Low lung volumes
[2024-07-25] MEDS: ALBUTEROL SULF 2.5 MG/0.5ML(0.5%) NEB SOLN NEB PRN (09:25)
--- NOTE | 2024-07-25 10:26 | DVHPNRES ---
Progress Note Date Seen: Jul 25, 2024 Resident Creating Document: MANDEEP LOPES RESIDENT Has the PT tested + for MRSA If YES, has PT been informed?: No Medical Necessity Reason Pt with a Central, PICC or Fol: No Subjective Review of Systems A 69 year old male patient who presents to the ED with chief complaint of diffuse abdominal pain and posteriorly evolved to right lower quadrant pain which started 3-4 days before his admission, associated with dizziness, palpitations chills and dyspnea in functional class IV. Patient reports progressively worsening of symptoms, prompting his visit. He was evaluated one day before his admission diagnosed with NSTEMI, but patient left AMA. Patient had to revisit ED for worsening symptoms. Denies syncope, chest pain, nausea, vomiting, diarrhea, dysuria, recent travel, different eating habits, sick contacts and motor or sensitive deficits. Past medical history: Hypertension, dyslipidemia, diabetes, CAD with questionable [place] status post coronary stent placement and presented CVA on same admission, Diverticulosis with one episode of diverticulitis 5 years ago. Surgical history: Right knee surgery, PCI with stent placement 20 years ago. Family history: Non contributory Social history: Lives in [place] with family. Denies current tobacco, alcohol and other drug abuse. Allergies: Denies Home medication: Plavix (aspirin was discontinued proximally two months ago, currently on single antiplatelet therapy), statins, rest of medication does not recall (does take antidiabetic medication and blood pressure medication) Patient seen and examined at bedside. Objective vital signs Vital Sign Date Time Temp Pulse Resp B/P (MAP) Pulse Ox O2 Delivery O2 Flow Rate FiO2 07/25/24 09:43 98 18 142/73 07/25/24 09:36 98 07/25/24 09:31 0.0 07/25/24 09:27 Room Air 07/25/24 05:00 98.5 98.5 Total Intake and Output 07/24/24 07/24/24 07/25/24 15:00 23:00 07:00 Intake Total 936 ml 1550 ml Balance 936 ml 1550 ml medications Current Medications Medications Dose Ordered Sig/Glory Route Start Time Stop Time Status Last Admin Dose Admin Ondansetron HCl 4 mg Q4HP PRN IV 07/23/24 01:45 Docusate Sodium 100 mg BIDPRN PRN PO 07/23/24 01:45 07/25/24 03:31 100 MG Nitroglycerin 0.4 mg Q5MINP PRN SL 07/23/24 03:00 Morphine Sulfate 2 mg Q30M PRN IV 07/23/24 03:00 Aspirin 81 mg DAILY PO 07/24/24 10:00 07/25/24 09:43 81 MG Diagnostic Test (Pha) 1 strip ACHS 07/23/24 07:00 07/25/24 06:30 1 STRIP Insulin Human Regular ACHS SC 07/23/24 07:00 07/25/24 06:29 3 UNITS Dextrose 50 ml UD PRN IV 07/23/24 03:45 Metronidazole 100 ml @ 100 mls/hr Q8HR IV 07/23/24 14:00 07/25/24 05:24 100 MLS/HR Morphine Sulfate 2 mg Q2HPRN PRN IV 07/23/24 17:45 07/25/24 09:43 2 MG Morphine Sulfate 5 mg Q4HPRN PRN IV 07/23/24 17:45 Famotidine 20 mg DAILY IV 07/24/24 10:00 07/24/24 09:01 20 MG Acetaminophen 650 mg Q6HP PRN PO 07/24/24 17:15 Sodium Chloride 1,000 ml @ 75 mls/hr [id number] IV 07/25/24 06:30 Vancomycin HCl 0 ml @ 0 mls/hr UD IV 07/25/24 06:30 Albuterol 2.5 mg Q6HPRN PRN NEB 07/25/24 06:30 07/25/24 09:25 2.5 MG Atorvastatin Calcium 40 mg HS PO 07/25/24 22:00 Vancomycin HCl 250 ml @ 250 mls/hr Q12H IV 07/25/24 12:00 Examination Patient lying in bed, in no acute distress General: Lucid, afebrile, mucosae are moist Cardiovascular: Normal S1 and S2. No murmurs, gallops or rubs Respiratory: Normal ventilation mechanics. Clear lung sounds on auscultation Abdomen: cindi on site, mild distended, no bleeding no discharge MSK/skin: Mobilizes 4 limbs. Skin is dry and warm Neurological: Oriented in 3 spheres. No motor no sensitive deficits. Pupils are isocoric and reactive laboratory and microbiology Laboratory Tests 07/25/24 06:09 Test 07/25/24 06:09 Range/Units Serum Glucose 175 H 74-106 mg/dL Microbiology Date/Time Source Procedure Growth Status 07/23/24 22:51 Nose MRSA Screen - Final Complete 07/23/24 16:14 Voided Urine Urine Culture - Preliminary Resulted 07/23/24 11:30 Blood Blood Culture - Preliminary Resulted Labs and/or images reviewed: Labs reviewed by me, Image(s) reviewed by me Problem List/Assessment/Plan Problem List/Assessment/Plan #s/p laparotomy/appendectomy: non perforated #Sepsis due to bacteremia gram + and acute appendicitis # NSTEMI probably type 2 #MACKENZIE hemodynamically mediated (unknown baseline creatinine) on CKD #CAD with questionable history of [place] - status post PCI 20 years ago #Diverticulosis with history of diverticulitis #Diabetes type 2 hba1c 7.4 #Questionable PCP consumption #Obesity Images: echocardiogram: LVEF 60%, grade 1 diastolic dysfunction, RVSP 49mmHg, rest of study within normal limits. renal ultrasound: No hydronephrosis, echogenic bilateral kidneys suggestive of chronic medical renal disease Cultures: 07/23/24: Gram Positive Cocci in chains and Gram Positive Cocci in clusters (2 bottles) Pending news Clear liquid diet Surgery on board Wean off O2 Fluids NS 75 cc/h AB: metronidazole and vancomycin Continue aspirin and statin Mild sliding scale: keep sugar below> 180mg/dl Pain managment Continue plavix as oupatient? Pending UDS Goals of care discussed with patient for 20 minutes: Full code status Discussed plan with Dr. Sin, patient and nurses Time spent on care 23 min Plan discussed with: Patient, Other (rn) Date of Service: Jul 25, 2024 Billing Provider: CHATO SIN MD Common Visit Codes: [id number] INP/OBS CARE(HIGH) Secondary Visit Codes: [id number] CARE PLAN 30 MINUTES MANDEEP LOPES RESIDENT Jul 25, 2024 10:26 CHATO SIN MD Jul 25, 2024 19:51
[2024-07-25 11:03] LABS: Free T3 1.82 pg/mL (2.3-4.2); Free T4 (Free Thyroxine) 1.33 ng/dL (0.89-1.76)
[2024-07-25] MEDS: VANCOMYCIN 1GM/250ML KIT 250 ML IV SCH (12:48)
--- NOTE | 2024-07-25 14:39 | DVHPN2 ---
Progress Note Date Seen: Jul 25, 2024 Has the PT tested + for MRSA If YES, has PT been informed?: No Medical Necessity Reason Pt with a Central, PICC or Fol: No Subjective Patient reports: Other (no events/ sob +) Review of Systems: HEENT:Normal, CVS:Normal, RESPIRATORY:Normal, GI:Abnormal, :Normal, MSK:Normal, NEURO:Normal Objective vital signs Vital Sign Date Time Temp Pulse Resp B/P (MAP) Pulse Ox O2 Delivery O2 Flow Rate FiO2 07/25/24 12:59 98.0 74 17 127/91 (103) 91 98.0 07/25/24 10:00 Room Air 0.0 07/25/24 10:00 21 Total Intake and Output 07/24/24 07/24/24 07/25/24 15:00 23:00 07:00 Intake Total 936 ml 1550 ml Balance 936 ml 1550 ml medications Current Medications Medications Dose Ordered Sig/Glory Route Start Time Stop Time Status Last Admin Dose Admin Ondansetron HCl 4 mg Q4HP PRN IV 07/23/24 01:45 Docusate Sodium 100 mg BIDPRN PRN PO 07/23/24 01:45 07/25/24 03:31 100 MG Aspirin 81 mg DAILY PO 07/24/24 10:00 07/25/24 09:43 81 MG Diagnostic Test (Pha) 1 strip ACHS 07/23/24 07:00 07/25/24 11:40 1 STRIP Insulin Human Regular ACHS SC 07/23/24 07:00 07/25/24 12:45 3 UNITS Dextrose 50 ml UD PRN IV 07/23/24 03:45 Metronidazole 100 ml @ 100 mls/hr Q8HR IV 07/23/24 14:00 07/25/24 05:24 100 MLS/HR Morphine Sulfate 2 mg Q2HPRN PRN IV 07/23/24 17:45 07/25/24 12:49 2 MG Famotidine 20 mg DAILY IV 07/24/24 10:00 07/25/24 11:22 20 MG Acetaminophen 650 mg Q6HP PRN PO 07/24/24 17:15 Vancomycin HCl 0 ml @ 0 mls/hr UD IV 07/25/24 06:30 Atorvastatin Calcium 40 mg HS PO 07/25/24 22:00 Vancomycin HCl 250 ml @ 250 mls/hr Q12H IV 07/25/24 12:00 07/25/24 12:48 250 MLS/HR Examination: GENERAL:Normal, HEENT:Normal, NECK:Normal, LUNGS:Abnormal, CVS:Normal, ABDOMEN:Abnormal, MSK:Normal, SKIN:Normal, NEURO:Normal, :Normal laboratory and microbiology Laboratory Tests 07/25/24 06:09 Test 07/25/24 06:09 Range/Units Serum Glucose 175 H 74-106 mg/dL Microbiology Date/Time Source Procedure Growth Status 07/23/24 22:51 Nose MRSA Screen - Final Complete 07/23/24 16:14 Voided Urine Urine Culture - Preliminary Resulted 07/23/24 11:30 Blood Blood Culture - Preliminary Resulted Problem List/Assessment/Plan Problem List/Assessment/Plan 1) hemodynamically mediated acute kidney injury, possible prerenal state 2) CKD III? 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 Expected Outcomes/Goals: Controlled DM, gradual weight loss. EVA CRUZ MD Jul 25, 2024 14:39
[2024-07-25] MEDS: FUROSEMIDE 40 MG/4 ML VIAL IV ONE (15:20)
[2024-07-25] MEDS ORDERED: HYDROcodone-ACET 7.5/325MG TAB PO PRN (21:00)
[2024-07-25] MEDS: ATORVASTATIN 20 MG TAB PO SCH (21:14)
[2024-07-25] MEDS: HYDROcodone-ACET 7.5/325MG TAB PO PRN (21:54)
[2024-07-26] VITALS (9 sets, daily range): BP systolic 120–141; BP diastolic 81–87; PULSE 79–94; RESP 18–20; TEMP 98.2–99.5; O2SAT 94–100
[2024-07-26 05:49] LABS: Basophils # (auto) 0 10 ^3/uL (0-0.2); Basophils % (auto) 0.2 % (0.0-2.0); Eosinophils # (auto) 0.2 10 ^3/uL (0-0.8); Eosinophils % (auto) 2.9 % (0.0-7.0); Hematocrit 34.9 % (41.0-53.0); Hemoglobin 11.9 g/dL (13.5-17.5); Lymphocytes # (auto) 0.8 10 ^3/uL (0.4-5.4); Lymphocytes % (auto) 10.5 % (10.0-50.0); Mean Corpuscular Hemoglobin 31.3 pg (28.0-32.0); Mean Corpuscular Hgb Conc. 34.2 g/dL (32.0-36.0); Mean Corpuscular Volume 91.7 fL (80.0-100.0); Monocytes # (auto) 0.7 10 ^3/uL (0-1.3); Monocytes % (auto) 8.1 % (0.0-12.0); Neutrophils # (auto) 6.3 10 ^3/uL (1.6-8.6); Neutrophils % (auto) 78.3 % (37.0-80.0); Platelet Count (auto) 216 10^3/uL (140-450); Red Blood Cells 3.81 10^6/uL (4.5-5.90); Red Cell Distribution Width 12.9 % (11.8-14.3); White Blood Cell 8.1 10^3/uL (4.4-10.8)
[2024-07-26] MEDS ORDERED: ALBUTEROL SULF 2.5 MG/0.5ML(0.5%) NEB SOLN NEB PRN (07:15)
[2024-07-26] MEDS ORDERED: ALBUTEROL SULF 2.5 MG/0.5ML(0.5%) NEB SOLN ONE (07:23)
[2024-07-26 08:59] LABS: Alanine Aminotransferase 31 U/L (7-40); Albumin 3.8 g/dL (3.2-4.8); Alkaline Phosphatase 88 U/L (46-116); Anion Gap 8 (5-15); Aspartate Aminotransferase 34 U/L (13-40); BUN/Creatinine Ratio 17.7 (10.0-20.0); Calcium 10.2 mg/dL (8.7-10.4); Carbon Dioxide 26 mmol/L (20-31); Chloride 106 mmol/L (98-107); Magnesium 1.8 mg/dL (1.6-2.6); Sodium 140 mmol/L (136-145)
[2024-07-26 09:00] LABS: Phosphorus 2.5 mg/dL (2.4-5.1); Total Protein 6.4 g/dL (5.7-8.2)
[2024-07-26 09:09] LABS: Bilirubin, Total 1.3 mg/dL (0.2-1.0); Blood Urea Nitrogen 29 mg/dL (9-23); Glucose 135 mg/dL (74-106); Potassium 3.3 mmol/L (3.5-5.1)
[2024-07-26] MEDS: FUROSEMIDE 40 MG/4 ML VIAL IV ONE (09:16)
[2024-07-26] MEDS: POTASSIUM CHL 20MEQ/100ML 100 ML IV SCH (13:16)
--- NOTE | 2024-07-26 13:17 | DVHPNRES ---
Progress Note Date Seen: Jul 26, 2024 Resident Creating Document: MANDEEP LOPES RESIDENT Has the PT tested + for MRSA If YES, has PT been informed?: No Medical Necessity Reason Pt with a Central, PICC or Fol: No Subjective Review of Systems A 69 year old male patient who presents to the ED with chief complaint of diffuse abdominal pain and posteriorly evolved to right lower quadrant pain which started 3-4 days before his admission, associated with dizziness, palpitations chills and dyspnea in functional class IV. Patient reports progressively worsening of symptoms, prompting his visit. He was evaluated one day before his admission diagnosed with NSTEMI, but patient left AMA. Patient had to revisit ED for worsening symptoms. Denies syncope, chest pain, nausea, vomiting, diarrhea, dysuria, recent travel, different eating habits, sick contacts and motor or sensitive deficits. Past medical history: Hypertension, dyslipidemia, diabetes, CAD with questionable [place] status post coronary stent placement and presented CVA on same admission, Diverticulosis with one episode of diverticulitis 5 years ago. Surgical history: Right knee surgery, PCI with stent placement 20 years ago. Family history: Non contributory Social history: Lives in [place] with family. Denies current tobacco, alcohol and other drug abuse. Allergies: Denies Home medication: Plavix (aspirin was discontinued proximally two months ago, currently on single antiplatelet therapy), statins, rest of medication does not recall (does take antidiabetic medication and blood pressure medication) Patient seen and examined at bedside. Objective vital signs Vital Sign Date Time Temp Pulse Resp B/P (MAP) Pulse Ox O2 Delivery O2 Flow Rate FiO2 07/26/24 10:00 98 Room Air 0.0 07/26/24 10:00 21 07/26/24 09:16 138/81 07/26/24 09:00 98.5 87 20 98.5 Total Intake and Output 07/25/24 07/25/24 07/26/24 15:00 23:00 07:00 Intake Total 100 ml 1225 ml 1050 ml Output Total 400 ml Balance 100 ml 1225 ml 650 ml medications Current Medications Medications Dose Ordered Sig/Glory Route Start Time Stop Time Status Last Admin Dose Admin Ondansetron HCl 4 mg Q4HP PRN IV 07/23/24 01:45 Docusate Sodium 100 mg BIDPRN PRN PO 07/23/24 01:45 07/26/24 09:03 100 MG Aspirin 81 mg DAILY PO 07/24/24 10:00 07/26/24 09:03 81 MG Diagnostic Test (Pha) 1 strip ACHS 07/23/24 07:00 07/26/24 11:30 1 STRIP Insulin Human Regular ACHS SC 07/23/24 07:00 07/26/24 11:30 3 UNITS Dextrose 50 ml UD PRN IV 07/23/24 03:45 Metronidazole 100 ml @ 100 mls/hr Q8HR IV 07/23/24 14:00 07/26/24 05:26 100 MLS/HR Morphine Sulfate 2 mg Q2HPRN PRN IV 07/23/24 17:45 07/25/24 20:27 2 MG Famotidine 20 mg DAILY IV 07/24/24 10:00 07/26/24 09:03 20 MG Acetaminophen 650 mg Q6HP PRN PO 07/24/24 17:15 Vancomycin HCl 0 ml @ 0 mls/hr UD IV 07/25/24 06:30 Atorvastatin Calcium 40 mg HS PO 07/25/24 22:00 07/25/24 21:14 40 MG Vancomycin HCl 250 ml @ 250 mls/hr Q12H IV 07/25/24 12:00 Hold 07/25/24 23:50 250 MLS/HR Acetaminophen/ Hydrocodone Bitart 1 tab Q4HP PRN PO 07/25/24 21:45 07/25/24 21:54 1 TAB Albuterol 2.5 mg Q6HPRN PRN NEB 07/26/24 07:15 Potassium Chloride 100 ml @ 50 mls/hr Q2H IV 07/26/24 09:30 07/26/24 17:29 Examination Patient lying in bed, in no acute distress General: Lucid, afebrile, mucosae are moist Cardiovascular: Normal S1 and S2. No murmurs, gallops or rubs Respiratory: Normal ventilation mechanics. Clear lung sounds on auscultation Abdomen: cindi on site, mild distended, no bleeding no discharge MSK/skin: Mobilizes 4 limbs. Skin is dry and warm Neurological: Oriented in 3 spheres. No motor no sensitive deficits. Pupils are isocoric and reactive laboratory and microbiology Laboratory Tests 07/26/24 07:06 07/26/24 05:06 Test 07/26/24 07:06 Range/Units Serum Glucose 135 H 74-106 mg/dL Microbiology Date/Time Source Procedure Growth Status 07/24/24 14:37 Blood Blood Culture - Preliminary NO GROWTH AFTER 24 HOURS OF INCUBATION. Resulted 07/23/24 22:51 Nose MRSA Screen - Final Complete 07/23/24 16:14 Voided Urine Urine Culture - Final Complete Problem List/Assessment/Plan Problem List/Assessment/Plan #s/p laparotomy/appendectomy: non perforated #Sepsis due to bacteremia gram + and acute appendicitis # NSTEMI probably type 2 #MACKENZIE hemodynamically mediated (unknown baseline creatinine) on CKD #CAD with questionable history of [place] - status post PCI 20 years ago #Diverticulosis with history of diverticulitis #Diabetes type 2 hba1c 7.4 #Questionable PCP consumption #Obesity #Hypokalemia Images: echocardiogram: LVEF 60%, grade 1 diastolic dysfunction, RVSP 49mmHg, rest of study within normal limits. renal ultrasound: No hydronephrosis, echogenic bilateral kidneys suggestive of chronic medical renal disease Cultures: 07/23/24: Gram Positive Cocci in chains and Gram Positive Cocci in clusters (2 bottles) Pending news Clear liquid diet Surgery on board Wean off O2 AB: metronidazole and vancomycin Continue aspirin and statin Mild sliding scale: keep sugar below> 180mg/dl Pain managment Continue plavix as oupatient? Fursoemide 40 mg once Goals of care discussed with patient for 20 minutes: Full code status Discussed plan with Dr. Sin, patient and nurses Time spent on care 23 min Plan discussed with: Patient, Other (rn) My Orders My Orders Orders - MANDEEP LOPES RESIDENT Procedure Category Date Status Time Albuterol Medneb PHA 07/26/24 In Process (Ventolin Medneb) 07:15 Incentive Spirometry ORDERS 07/26/24 Transmitted 07:37 Potassium Chl PHA 07/26/24 In Process 20meq/100ml 09:30 Dietary Evaluation Review Comments: Advance to 2g Na cardiac and CCHO-60 lowFat LowCholesterol diet when medically feasible. Expected Outcomes/Goals: Controlled DM, gradual weight loss. Date of Service: Jul 26, 2024 Billing Provider: CHATO SIN MD Common Visit Codes: [id number] INP/OBS CARE(HIGH) MANDEEP LOPES RESIDENT Jul 26, 2024 13:17 CHATO SIN MD Jul 27, 2024 17:53
--- NOTE | 2024-07-26 14:03 | DVHPN2 ---
Progress Note Date Seen: Jul 26, 2024 Has the PT tested + for MRSA If YES, has PT been informed?: No Medical Necessity Reason Pt with a Central, PICC or Fol: No Subjective Review of Systems Pt feels well. Denies vomiting. Admits to occasional episodes of nausea. Toleating CLD. Denies passing flatus or having BM. Objective vital signs Vital Sign Date Time Temp Pulse Resp B/P (MAP) Pulse Ox O2 Delivery O2 Flow Rate FiO2 07/26/24 10:00 98 Room Air 0.0 07/26/24 10:00 21 07/26/24 09:16 138/81 07/26/24 09:00 98.5 87 20 98.5 Total Intake and Output 07/25/24 07/25/24 07/26/24 15:00 23:00 07:00 Intake Total 100 ml 1225 ml 1050 ml Output Total 400 ml Balance 100 ml 1225 ml 650 ml medications Current Medications Medications Dose Ordered Sig/Glory Route Start Time Stop Time Status Last Admin Dose Admin Ondansetron HCl 4 mg Q4HP PRN IV 07/23/24 01:45 Docusate Sodium 100 mg BIDPRN PRN PO 07/23/24 01:45 07/26/24 09:03 100 MG Aspirin 81 mg DAILY PO 07/24/24 10:00 07/26/24 09:03 81 MG Diagnostic Test (Pha) 1 strip ACHS 07/23/24 07:00 07/26/24 11:30 1 STRIP Insulin Human Regular ACHS SC 07/23/24 07:00 07/26/24 11:30 3 UNITS Dextrose 50 ml UD PRN IV 07/23/24 03:45 Metronidazole 100 ml @ 100 mls/hr Q8HR IV 07/23/24 14:00 07/26/24 05:26 100 MLS/HR Morphine Sulfate 2 mg Q2HPRN PRN IV 07/23/24 17:45 07/25/24 20:27 2 MG Famotidine 20 mg DAILY IV 07/24/24 10:00 07/26/24 09:03 20 MG Acetaminophen 650 mg Q6HP PRN PO 07/24/24 17:15 Vancomycin HCl 0 ml @ 0 mls/hr UD IV 07/25/24 06:30 Atorvastatin Calcium 40 mg HS PO 07/25/24 22:00 07/25/24 21:14 40 MG Vancomycin HCl 250 ml @ 250 mls/hr Q12H IV 07/25/24 12:00 Hold 07/25/24 23:50 250 MLS/HR Acetaminophen/ Hydrocodone Bitart 1 tab Q4HP PRN PO 07/25/24 21:45 07/25/24 21:54 1 TAB Albuterol 2.5 mg Q6HPRN PRN NEB 07/26/24 07:15 Potassium Chloride 100 ml @ 50 mls/hr Q2H IV 07/26/24 09:30 07/26/24 17:29 07/26/24 13:16 50 MLS/HR Examination AFVSS. Abdomen soft, Obese, mildly distended and with mild incisional tenderness. Incision C/D/I. laboratory and microbiology Laboratory Tests 07/26/24 07:06 07/26/24 05:06 Test 07/26/24 07:06 Range/Units Serum Glucose 135 H 74-106 mg/dL Microbiology Date/Time Source Procedure Growth Status 07/24/24 14:37 Blood Blood Culture - Preliminary NO GROWTH AFTER 24 HOURS OF INCUBATION. Resulted 07/23/24 22:51 Nose MRSA Screen - Final Complete 07/23/24 16:14 Voided Urine Urine Culture - Final Complete Labs and/or images reviewed: Labs reviewed by me Problem List/Assessment/Plan Problems(with codes): (1) Acute appendicitis (2) Acute renal injury Problem List/Assessment/Plan Bacteremia. GPC. F/U Blood Cx negatove to date Sepsis secondary to acute appendicitis, resolved. S/P Lap to open WENDIE and appendectomy. Pt recovering well. May be developing a postoperative ileus. Continue observation. CLD. If vomiting, NGT to LCS @ 80 mm Hg. Continue IV Abx. CAD, questionable NSTEMI vs elevated troponin from increased cardiac demand from acute inflammatory process/sepsis compounded with ARF. Continue aspirin, may resume Plavix/antiplatelet therapy upon discharge. Med nebs. I/S. Nephrology following. Improving MACKENZIE. Unknown baseline. Correct electrolytes as needed. Continue DVT and GI prohylaxis. RISSC, tight glycemic control. OOB and ambulation. Physical therapy. Continue telemetry. Plan discussed with: Patient Dietary Evaluation Review Comments: Advance to 2g Na cardiac and CCHO-60 lowFat LowCholesterol diet when medically feasible. Expected Outcomes/Goals: Controlled DM, gradual weight loss. MILES WHITESIDE MD Jul 26, 2024 14:03
[2024-07-26] MEDS: VANCOMYCIN 1GM/250ML KIT 250 ML IV SCH (18:15)
--- NOTE | 2024-07-26 21:42 | DVHPN2 ---
Progress Note Date Seen: Jul 26, 2024 Has the PT tested + for MRSA If YES, has PT been informed?: No Medical Necessity Reason Pt with a Central, PICC or Fol: No Subjective Patient reports: No new complaints Objective vital signs Vital Sign Date Time Temp Pulse Resp B/P (MAP) Pulse Ox O2 Delivery O2 Flow Rate FiO2 07/26/24 20:00 20 98 Room Air* 0 21 07/26/24 09:16 138/81 07/26/24 09:00 98.5 87 98.5 Total Intake and Output 07/25/24 07/25/24 07/26/24 14:59 22:59 06:59 Intake Total 100 ml 1225 ml 1150 ml Output Total 400 ml Balance 100 ml 1225 ml 750 ml medications Current Medications Medications Dose Ordered Sig/Glory Route Start Time Stop Time Status Last Admin Dose Admin Ondansetron HCl 4 mg Q4HP PRN IV 07/23/24 01:45 Docusate Sodium 100 mg BIDPRN PRN PO 07/23/24 01:45 07/26/24 09:03 100 MG Aspirin 81 mg DAILY PO 07/24/24 10:00 07/26/24 09:03 81 MG Diagnostic Test (Pha) 1 strip ACHS 07/23/24 07:00 07/26/24 21:20 1 STRIP Insulin Human Regular ACHS SC 07/23/24 07:00 07/26/24 21:20 3 UNITS Dextrose 50 ml UD PRN IV 07/23/24 03:45 Metronidazole 100 ml @ 100 mls/hr Q8HR IV 07/23/24 14:00 07/26/24 21:13 100 MLS/HR Morphine Sulfate 2 mg Q2HPRN PRN IV 07/23/24 17:45 07/25/24 20:27 2 MG Famotidine 20 mg DAILY IV 07/24/24 10:00 07/26/24 09:03 20 MG Acetaminophen 650 mg Q6HP PRN PO 07/24/24 17:15 Vancomycin HCl 0 ml @ 0 mls/hr UD IV 07/25/24 06:30 Atorvastatin Calcium 40 mg HS PO 07/25/24 22:00 07/26/24 21:08 40 MG Acetaminophen/ Hydrocodone Bitart 1 tab Q4HP PRN PO 07/25/24 21:45 07/25/24 21:54 1 TAB Albuterol 2.5 mg Q6HPRN PRN NEB 07/26/24 07:15 Vancomycin HCl 250 ml @ 250 mls/hr Q18H IV 07/26/24 18:00 07/26/24 18:15 250 MLS/HR laboratory and microbiology Laboratory Tests 07/26/24 07:06 07/26/24 05:06 Test 07/26/24 07:06 Range/Units Serum Glucose 135 H 74-106 mg/dL Microbiology Date/Time Source Procedure Growth Status 07/24/24 14:37 Blood Blood Culture - Preliminary NO GROWTH AFTER 48 HOURS OF INCUBATION. Resulted 07/23/24 22:51 Nose MRSA Screen - Final Complete 07/23/24 16:14 Voided Urine Urine Culture - Final Complete Problem List/Assessment/Plan Problem List/Assessment/Plan 1) hemodynamically mediated acute kidney injury, possible prerenal state 2) CKD III? 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 Expected Outcomes/Goals: Controlled DM, gradual weight loss. EVA CRUZ MD Jul 26, 2024 21:41
[2024-07-27] VITALS (10 sets, daily range): BP systolic 125–149; BP diastolic 79–92; PULSE 80–96; RESP 19–20; TEMP 98–99.9; O2SAT 94–99
[2024-07-27] MEDS ORDERED: HYDROcodone-ACET 5/325MG TAB PO PRN (06:00)
[2024-07-27] MEDS ORDERED: MORPHINE SULFATE INJ 2 MG/ml SYRG IV PRN (06:00)
[2024-07-27] MEDS ORDERED: HYDROcodone-ACET 10/325MG TAB PO PRN (06:00)
--- NOTE | 2024-07-27 06:11 | DVHPN2 ---
Progress Note Date Seen: Jul 27, 2024 Has the PT tested + for MRSA If YES, has PT been informed?: No Medical Necessity Reason Pt with a Central, PICC or Fol: No Subjective Review of Systems Pt feels much better. C/O heartburn.Has episodes of nausea. Denies vomiting or BM.. Admits to mild incisional pain and passed flatus several times. Continues tolerating CLD Objective vital signs Vital Sign Date Time Temp Pulse Resp B/P (MAP) Pulse Ox O2 Delivery O2 Flow Rate FiO2 07/27/24 05:54 98 Room Air* 0 21 07/27/24 05:00 99.9 81 19 137/92 (107) 99.9 Total Intake and Output 07/26/24 07/26/24 07/27/24 14:59 22:59 06:59 Intake Total 200 ml 800 ml Balance 200 ml 800 ml medications Current Medications Medications Dose Ordered Sig/Glory Route Start Time Stop Time Status Last Admin Dose Admin Ondansetron HCl 4 mg Q4HP PRN IV 07/23/24 01:45 Docusate Sodium 100 mg BIDPRN PRN PO 07/23/24 01:45 07/26/24 09:03 100 MG Aspirin 81 mg DAILY PO 07/24/24 10:00 07/26/24 09:03 81 MG Diagnostic Test (Pha) 1 strip ACHS 07/23/24 07:00 07/27/24 06:00 1 STRIP Insulin Human Regular ACHS SC 07/23/24 07:00 07/27/24 06:00 2 UNITS Dextrose 50 ml UD PRN IV 07/23/24 03:45 Metronidazole 100 ml @ 100 mls/hr Q8HR IV 07/23/24 14:00 07/27/24 05:05 100 MLS/HR Famotidine 20 mg DAILY IV 07/24/24 10:00 07/26/24 09:03 20 MG Acetaminophen 650 mg Q6HP PRN PO 07/24/24 17:15 Vancomycin HCl 0 ml @ 0 mls/hr UD IV 07/25/24 06:30 Atorvastatin Calcium 40 mg HS PO 07/25/24 22:00 07/26/24 21:08 40 MG Albuterol 2.5 mg Q6HPRN PRN NEB 07/26/24 07:15 Vancomycin HCl 250 ml @ 250 mls/hr Q18H IV 07/26/24 18:00 07/26/24 18:15 250 MLS/HR Morphine Sulfate 2 mg Q2HPRN PRN IV 07/27/24 06:00 UNV Ceftriaxone Sodium 1,000 mg DAILY IV 07/27/24 10:00 UNV Acetaminophen/ Hydrocodone Bitart 1 tab Q4HPRN PRN PO 07/27/24 06:00 UNV Acetaminophen/ Hydrocodone Bitart 1 tab Q4HP PRN PO 07/27/24 06:00 UNV Examination AFVSS. Abdomen soft, obese, ND and minimally tender. Incision C/D/I laboratory and microbiology Laboratory Tests 07/26/24 07:06 07/26/24 05:06 Test 07/26/24 07:06 Range/Units Serum Glucose 135 H 74-106 mg/dL Microbiology Date/Time Source Procedure Growth Status 07/24/24 14:37 Blood Blood Culture - Preliminary NO GROWTH AFTER 48 HOURS OF INCUBATION. Resulted 07/23/24 22:51 Nose MRSA Screen - Final Complete 07/23/24 16:14 Voided Urine Urine Culture - Final Complete Problem List/Assessment/Plan Problems(with codes): (1) Acute appendicitis (2) Acute renal injury Problem List/Assessment/Plan Bacteremia. Initial Bloood Cx 1/2 GPC. Suspect contaminated specimen. F/U Blood Cx negative to date. Sepsis secondary to acute appendicitis, resolved. S/P Lap to open WENDIE and appendectomy. Pt recovering well. Advance diet. Continue IV Abx (Rocephin and Flagyl). D/C Vancomycin, if final F/U blood cultures negative. CAD, questionable NSTEMI vs elevated troponin from increased cardiac demand from acute inflammatory process/sepsis compounded with ARF. Continue aspirin, may resume Plavix/antiplatelet therapy upon discharge. Med nebs. I/S. Nephrology following. Improving MACKENZIE. Unknown baseline. Correct electrolytes as needed. Continue DVT and GI prohylaxis. RISSC, tight glycemic control. OOB and ambulation. Physical therapy. Continue telemetry. May D/C home if tolerated solid diet for breakfast, lunch and dinner. Do not change my orders Plan discussed with: Patient My Orders My Orders Orders - MILES WHITESIDE MD Procedure Category Date Status Time Vancomycin 1gm/250ml PHA 07/26/24 In Process Kit 18:00 Vancomycin,Trough LAB 07/28/24 Verified 05:00 Creatinine LAB 07/28/24 Verified 05:00 Vancomycin Per [facility]MBERLY 07/28/24 In Process Pharmacy Protoc 06:00 Morphine Sulfate PHA 07/27/24 Logged Injection 06:00 Ceftriaxone Sodium PHA 07/27/24 Logged (Rocephin) 10:00 Hydrocodone-Acet PHA 07/27/24 Logged 5/325mg Tab ([place] 06:00 Hydrocodone-Acet PHA 07/27/24 Logged 10/325mg Tab ([place] 06:00 Dietary Evaluation Review Comments: Advance to 2g Na cardiac and CCHO-60 lowFat LowCholesterol diet when medically feasible. Expected Outcomes/Goals: Controlled DM, gradual weight loss. MILES WHITESIDE MD Jul 27, 2024 06:11
[2024-07-27] MEDS ORDERED: cefTRIAXone 1GM/50ML D5W 50 ML IV SCH (06:30)
[2024-07-27 06:45] LABS: Basophils # (auto) 0 10 ^3/uL (0-0.2); Basophils % (auto) 0.1 % (0.0-2.0); Eosinophils # (auto) 0.2 10 ^3/uL (0-0.8); Eosinophils % (auto) 2.4 % (0.0-7.0); Hematocrit 37.7 % (41.0-53.0); Hemoglobin 12.8 g/dL (13.5-17.5); Lymphocytes # (auto) 0.5 10 ^3/uL (0.4-5.4); Lymphocytes % (auto) 6.7 % (10.0-50.0); Mean Corpuscular Hgb Conc. 33.9 g/dL (32.0-36.0); Mean Corpuscular Volume 91.5 fL (80.0-100.0); Monocytes # (auto) 0.8 10 ^3/uL (0-1.3); Monocytes % (auto) 9.8 % (0.0-12.0); Neutrophils # (auto) 6.4 10 ^3/uL (1.6-8.6); Nucleated Red Blood Cells % 0.1 %; Platelet Count (auto) 260 10^3/uL (140-450); Red Blood Cells 4.12 10^6/uL (4.5-5.90); Red Cell Distribution Width 12.8 % (11.8-14.3); White Blood Cell 7.9 10^3/uL (4.4-10.8)
[2024-07-27 06:52] LABS: Alanine Aminotransferase 28 U/L (7-40); Albumin 3.9 g/dL (3.2-4.8); Alkaline Phosphatase 87 U/L (46-116); Anion Gap 12 (5-15); Aspartate Aminotransferase 25 U/L (13-40); BUN/Creatinine Ratio 17.8 (10.0-20.0); Blood Urea Nitrogen 23 mg/dL (9-23); Calcium 10.4 mg/dL (8.7-10.4); Carbon Dioxide 28 mmol/L (20-31); Chloride 100 mmol/L (98-107); Potassium 3.8 mmol/L (3.5-5.1); Sodium 140 mmol/L (136-145)
[2024-07-27 06:53] LABS: Bilirubin, Total 1.2 mg/dL (0.2-1.0); Total Protein 6.4 g/dL (5.7-8.2)
[2024-07-27 07:02] LABS: Glucose 141 mg/dL (74-106)
[2024-07-27] MEDS: cefTRIAXone 1GM/50ML D5W 50 ML IV SCH (09:00)
[2024-07-27] MEDS: MAGNESIUM SULFATE 1GM/100ML 100 ML IV ONE (09:00)
[2024-07-27] MEDS ORDERED: cefTRIAXone SOD 1,000 MG VL IV SCH (10:00)
--- NOTE | 2024-07-27 11:31 | DVHPNRES ---
Progress Note Date Seen: Jul 27, 2024 Resident Creating Document: MANDEEP LOPES RESIDENT Has the PT tested + for MRSA If YES, has PT been informed?: No Medical Necessity Reason Pt with a Central, PICC or Fol: No Subjective Review of Systems A 69 year old male patient who presents to the ED with chief complaint of diffuse abdominal pain and posteriorly evolved to right lower quadrant pain which started 3-4 days before his admission, associated with dizziness, palpitations chills and dyspnea in functional class IV. Patient reports progressively worsening of symptoms, prompting his visit. He was evaluated one day before his admission diagnosed with NSTEMI, but patient left AMA. Patient had to revisit ED for worsening symptoms. Denies syncope, chest pain, nausea, vomiting, diarrhea, dysuria, recent travel, different eating habits, sick contacts and motor or sensitive deficits. Past medical history: Hypertension, dyslipidemia, diabetes, CAD with questionable OR status post coronary stent placement and presented CVA on same admission, Diverticulosis with one episode of diverticulitis 5 years ago. Surgical history: Right knee surgery, PCI with stent placement 20 years ago. Family history: Non contributory Social history: Lives in [place] with family. Denies current tobacco, alcohol and other drug abuse. Allergies: Denies Home medication: Plavix (aspirin was discontinued proximally two months ago, currently on single antiplatelet therapy), statins, rest of medication does not recall (does take antidiabetic medication and blood pressure medication) Patient seen and examined at bedside. Objective vital signs Vital Sign Date Time Temp Pulse Resp B/P (MAP) Pulse Ox O2 Delivery O2 Flow Rate FiO2 07/27/24 10:00 96 Room Air* 0 21 07/27/24 09:00 98.0 89 20 149/85 (106) 98.0 Total Intake and Output 07/26/24 07/26/24 07/27/24 15:00 23:00 07:00 Intake Total 300 ml 900 ml Balance 300 ml 900 ml medications Current Medications Medications Dose Ordered Sig/Glory Route Start Time Stop Time Status Last Admin Dose Admin Ondansetron HCl 4 mg Q4HP PRN IV 07/23/24 01:45 Docusate Sodium 100 mg BIDPRN PRN PO 07/23/24 01:45 07/26/24 09:03 100 MG Aspirin 81 mg DAILY PO 07/24/24 10:00 07/27/24 09:00 81 MG Diagnostic Test (Pha) 1 strip ACHS 07/23/24 07:00 07/27/24 11:10 1 STRIP Insulin Human Regular ACHS SC 07/23/24 07:00 07/27/24 11:28 4 UNITS Dextrose 50 ml UD PRN IV 07/23/24 03:45 Metronidazole 100 ml @ 100 mls/hr Q8HR IV 07/23/24 14:00 07/27/24 05:05 100 MLS/HR Famotidine 20 mg DAILY IV 07/24/24 10:00 07/27/24 07:07 20 MG Acetaminophen 650 mg Q6HP PRN PO 07/24/24 17:15 Vancomycin HCl 0 ml @ 0 mls/hr UD IV 07/25/24 06:30 Atorvastatin Calcium 40 mg HS PO 07/25/24 22:00 07/26/24 21:08 40 MG Albuterol 2.5 mg Q6HPRN PRN NEB 07/26/24 07:15 Vancomycin HCl 250 ml @ 250 mls/hr Q18H IV 07/26/24 18:00 07/27/24 11:29 250 MLS/HR Morphine Sulfate 2 mg Q2HPRN PRN IV 07/27/24 06:00 Acetaminophen/ Hydrocodone Bitart 1 tab Q4HPRN PRN PO 07/27/24 06:00 Acetaminophen/ Hydrocodone Bitart 1 tab Q4HP PRN PO 07/27/24 06:00 Ceftriaxone Sodium 50 ml @ 100 mls/hr DAILY@09 IV 07/27/24 09:00 07/27/24 09:00 100 MLS/HR Examination Patient lying in bed, in no acute distress General: Lucid, afebrile, mucosae are moist Cardiovascular: Normal S1 and S2. No murmurs, gallops or rubs Respiratory: Normal ventilation mechanics. Clear lung sounds on auscultation Abdomen: cindi on site, mild distended, no bleeding no discharge MSK/skin: Mobilizes 4 limbs. Skin is dry and warm Neurological: Oriented in 3 spheres. No motor no sensitive deficits. Pupils are isocoric and reactive laboratory and microbiology Laboratory Tests 07/27/24 05:39 Test 07/27/24 05:39 Range/Units Serum Glucose 141 H 74-106 mg/dL Microbiology Date/Time Source Procedure Growth Status 07/24/24 14:37 Blood Blood Culture - Preliminary NO GROWTH AFTER 48 HOURS OF INCUBATION. Resulted 07/23/24 22:51 Nose MRSA Screen - Final Complete 07/23/24 16:14 Voided Urine Urine Culture - Final Complete Problem List/Assessment/Plan Problem List/Assessment/Plan #s/p laparotomy/appendectomy: non perforated #Sepsis due to bacteremia gram + and acute appendicitis # NSTEMI probably type 2 #MACKENZIE hemodynamically mediated (unknown baseline creatinine) on CKD #CAD with questionable history of OR - status post PCI 20 years ago #Diverticulosis with history of diverticulitis #Diabetes type 2 hba1c 7.4 #Questionable PCP consumption #Obesity #Hypokalemia Images: echocardiogram: LVEF 60%, grade 1 diastolic dysfunction, RVSP 49mmHg, rest of study within normal limits. renal ultrasound: No hydronephrosis, echogenic bilateral kidneys suggestive of chronic medical renal disease Cultures: 07/23/24: Gram Positive Cocci in chains and Gram Positive Cocci in clusters (2 bottles) Prelim neg 48h Diabetic diet F/u in tolerating diet to possible DC Surgery on board AB: metronidazole and vancomycin Continue aspirin and statin Mild sliding scale: keep sugar below> 180mg/dl Pain managment Continue aspirin Goals of care discussed with patient for 20 minutes: Full code status Discussed plan with Dr. Sin, patient and nurses Time spent on care 23 min Plan discussed with: Patient, Other (rn) My Orders My Orders Orders - MANDEEP LOPES RESIDENT Procedure Category Date Status Time Discontinue Tele [facility] 07/27/24 In Process 11:24 Dietary Evaluation Review Comments: Advance to 2g Na cardiac and CCHO-60 lowFat LowCholesterol diet when medically feasible. Expected Outcomes/Goals: Controlled DM, gradual weight loss. Date of Service: Jul 27, 2024 Billing Provider: CHATO SIN MD Common Visit Codes: NOT BILLABLE MANDEEP LOPES RESIDENT Jul 27, 2024 11:31 CHATO SIN MD Jul 27, 2024 17:54
[2024-07-27] MEDS ORDERED: ACET-1882 PO (15:28)
[2024-07-27] MEDS ORDERED: ASPI-325 PO (15:28)
[2024-07-27] MEDS ORDERED: AMOX500T86 PO (15:29)
[2024-07-27] MEDS ORDERED: METR-344 PO (15:30)
[2024-07-27] MEDS ORDERED: ATOR20TA50 PO (15:31)
[2024-07-27] MEDS ORDERED: METF-370 PO (15:31)
--- NOTE | 2024-07-27 16:07 | DVHDSRES ---
Discharge Summary Date of Admission Resident Creating Document: MANDEEP LOPES RESIDENT Jul 23, 2024 at 02:57 Date of Discharge: Jul 27, 2024 Admitting Diagnosis s/p appendectomy Labs/Diagnostic Data: Laboratory Results Test 07/27/24 11:09 07/27/24 05:39 07/26/24 13:00 07/26/24 07:06 POC Glucose 206 mg/dl (70-106) White Blood Count 7.9 10^3/uL (4.4-10.8) Red Blood Count 4.12 10^6/uL (4.5-5.90) Hemoglobin 12.8 g/dL (13.5-17.5) Hematocrit 37.7 % (41.0-53.0) Mean Corpuscular Volume 91.5 fL (80.0-100.0) Mean Corpuscular Hemoglobin 31.0 pg (28.0-32.0) Mean Corpuscular Hemoglobin Concent 33.9 g/dL (32.0-36.0) Red Cell Distribution Width 12.8 % (11.8-14.3) Platelet Count 260 10^3/uL (140-450) Mean Platelet Volume 9.7 fL (6.9-10.8) Neutrophils (%) (Auto) 81.0 % (37.0-80.0) Lymphocytes (%) (Auto) 6.7 % (10.0-50.0) Monocytes (%) (Auto) 9.8 % (0.0-12.0) Eosinophils (%) (Auto) 2.4 % (0.0-7.0) Basophils (%) (Auto) 0.1 % (0.0-2.0) Neutrophils # (Auto) 6.4 10 ^3/uL (1.6-8.6) Lymphocytes # (Auto) 0.5 10 ^3/uL (0.4-5.4) Monocytes # (Auto) 0.8 10 ^3/uL (0-1.3) Eosinophils # (Auto) 0.2 10 ^3/uL (0-0.8) Basophils # (Auto) 0 10 ^3/uL (0-0.2) Nucleated Red Blood Cells 0.1 % Sodium Level 140 mmol/L (136-145) Potassium Level 3.8 mmol/L (3.5-5.1) Chloride Level 100 mmol/L (98-107) Carbon Dioxide Level 28 mmol/L (20-31) Anion Gap 12 (5-15) Blood Urea Nitrogen 23 mg/dL (9-23) Creatinine 1.29 mg/dL (0.700-1.30) Glomerular Filtration Rate Calc 60 mL/min (>90) BUN/Creatinine Ratio 17.8 (10.0-20.0) Serum Glucose 141 mg/dL (74-106) Calcium Level 10.4 mg/dL (8.7-10.4) Total Bilirubin 1.2 mg/dL (0.2-1.0) Aspartate Amino Transferase (AST) 25 U/L (13-40) Alanine Aminotransferase (ALT) 28 U/L (7-40) Alkaline Phosphatase 87 U/L (46-116) B-Type Natriuretic Peptide 173.86 pg/mL (0-100) Total Protein 6.4 g/dL (5.7-8.2) Albumin 3.9 g/dL (3.2-4.8) Random Vancomycin Level 14.7 ug/mL (5-10) Phosphorus Level 2.5 mg/dL (2.4-5.1) Magnesium Level 1.8 mg/dL (1.6-2.6) Test 07/26/24 05:06 07/25/24 00:10 07/23/24 16:14 07/23/24 13:44 Vancomycin Level Trough 20.9 ug/mL (5-10) Influenza Type A Antigen Negative (Negative) Influenza Type B Antigen Negative (Negative) SARS-CoV-2 Antigen (Rapid) Negative (NEGATIVE) Urine Color Yellow (Yellow) Urine Clarity Clear (Clear) Urine pH 5.5 (5.0-9.0) Urine Specific [place] 1.020 (1.001-1.035) Urine Protein 2+ (Negative) Urine Ketones 1+ (Negative) Urine Blood 2+ /uL (Negative) Urine Nitrite Negative (Negative) Urine Bilirubin Negative (Negative) Urine Urobilinogen Normal mg/dL (Negative) Urine Leukocyte Esterase Negative /uL (Negative) Urine RBC 2 /hpf (0 - 3) Urine WBC 1 /hpf (0 - 3) Urine Squamous Epithelial Cells None seen /hpf (<5) Urine Amorphous Crystals Few /hpf (None Seen) Urine Bacteria None seen /hpf (None Seen) Urine Osmolality 550 mOsm/kg Urine Creatinine 71.99 mg/dL (30.0-125.0) Urine Protein/Creatinine Ratio 2.30 Urine Sodium 95 mmol/L (40-220) Urine Potassium 39 mmol/L (12-62) Urine Glucose Normal mg/dL (Normal) Urine Total Protein 165.9 mg/dL (1-14) Urine Opiates Screen Neg (NEGATIVE) Urine Fentanyl Screen Neg (NEGATIVE) Urine Barbiturates Screen Neg (NEGATIVE) Urine Phencyclidine Screen Neg (NEGATIVE) Urine Amphetamines Screen Neg (NEGATIVE) Urine Benzodiazepines Screen Neg (NEGATIVE) Urine Cocaine Screen Neg (NEGATIVE) Urine Cannabinoids Screen Neg (NEGATIVE) Lactic Acid Level 1.7 mmol/L (0.4-2.0) Test 07/23/24 11:30 07/23/24 05:41 07/23/24 03:28 07/23/24 02:27 Ammonia < 10 umol/L (11-32) Troponin I High Sensitivity 875 ng/L (</=54) Free Thyroxine (T4) Calculated 1.33 ng/dL (0.89-1.76) Free Triiodothyronine (T3) pg/mL 1.82 pg/mL (2.3-4.2) Prothrombin Time 11.6 sec (9.3-11.8) Prothrombin Time INR 1.10 (0.9-1.15) Activated Partial Thromboplast Time 35.5 SEC (24.5-34.5) Triglycerides Level 108 mg/dL (< 150) Cholesterol Level 96 mg/dL (< 200) LDL Cholesterol 43 mg/dL (< 100) HDL Cholesterol 30 mg/dL (40-59) Vitamin B12 Level 588 pg/mL (211-911) Vitamin D 25-Hydroxy 74.8 ng/mL (30.0-100) Thyroid Stimulating Hormone (TSH) 0.15 uIU/mL (0.55-4.78) Differential Total Cells Counted 100.0 (100) Neutrophils % (Manual) 89 (37.0-80.0) Band Neutrophils % (Manual) 3 Lymphocytes % (Manual) 5 (10.0-50.0) Monocytes % (Manual) 3 (0-12) Eosinophils % (Manual) 0 (0-7) Basophils % (Manual) 0 (0.0-2.0) Metamyelocytes % (manual) 0 Myelocytes % (Manual) 0 Promyelocytes % (Manual) 0 Blast Cells % (Manual) 0 Reactive Lymphocytes 0 Platelet Estimate Adequate Other Laboratory Tests 07/27/24 05:39 Brief Hx & Hospital Course: A 69-year-old male with a history of hypertension, diabetes, CAD with a questionable history of CA (status post-PCI 20 years ago), and diverticulosis presented with diffuse abdominal pain that had progressively worsened over three days. His symptoms were associated with chills, dizziness, and dyspnea. At admission, ACS was suspected but later on Imaging and clinical evaluation revealed acute appendicitis without perforation, leading to a diagnosis of sepsis. The patient underwent laparotomy and appendectomy and received broad- spectrum antibiotics with vancomycin and metronidazole. The hospital course was further complicated by acute kidney injury on chronic kidney disease, which improved with hydration. Also, cultures came positive with gram positive bacteria, possible contamination. Echocardiography showed an LVEF of 60% with grade 1 diastolic dysfunction, and an ultrasound confirmed chronic medical renal disease. The patient responded well to treatment. . He was discharged in stable condition on day 3 of post op, patient will need f/u with Dr Christianson as outpatient, patient was discharged with oral antibiotics. Patient lying in bed, in no acute distress General: Lucid, afebrile, mucosae are moist Cardiovascular: Normal S1 and S2. No murmurs, gallops or rubs Respiratory: Normal ventilation mechanics. Clear lung sounds on auscultation Abdomen: cindi on site, mild distended, no bleeding no discharge MSK/skin: Mobilizes 4 limbs. Skin is dry and warm Neurological: Oriented in 3 spheres. No motor no sensitive deficits. Pupils are isocoric and reactive Case discussed with Dr Sin and Dr Christianson Time spent on care 23 min Consults/Reason for consult cardiology: ruled out ACS surgery: appendicitis Operations or Procedures Procedure: CT CT AB PEL WO CON-NO ORAL OR IV 07/23/2024 12:25 PM Indication: R/O APPEDNDICITIS AND DIVERTICULITIS Comparison Study: None available at time of dictation. Technique: Axial images were obtained and reformatted in coronal and sagittal planes. All CT scans at this medical facility are performed using dose modulation techniques as appropriate to a performed exam including the following: Automated exposure control was utilized; adjustment of the MA and/or KV according to patient size; and use of iterative reconstruction technique. CT Dose: CTDI volume is 21.27 mGy. Dose-length product is 1224.61 mGy*cm FINDINGS: Lower Chest: The heart is normal in size. Heavy coronary artery calcification seen.. Hepatobiliary: Hepatic steatosis. Cholelithiasis with no evidence for cholecystitis. Spleen: Unremarkable. Pancreas: Unremarkable. Adrenal Glands: Unremarkable. tract: The kidneys are normal in size bilaterally without hydronephrosis or nephrolithiasis. Contrast seen in gallbladder lumen from IV contrast injection the day before 4 CT angiogram of the chest. GI tract: The stomach is grossly normal in appearance. No evidence of small bowel obstruction. The large bowel is unremarkable. Dilated appendix measuring 1.2 cm in caliber containing fecal like material. No appendicolith is seen. Moderate periappendiceal inflammation. No evidence of perforation. Lymphatics: No mesenteric, retroperitoneal or periportal lymphadenopathy. Vasculature: Aorta is normal in caliber. Scattered calcified plaques are noted. Pelvic Organs: Unremarkable Bones/soft tissues: No acute abnormality. Multilevel degenerative changes of the lumbar spine noted. Other: None. IMPRESSION: 1. Findings compatible with acute non complicated appendicitis with no evidence for perforation phlegmon or abscess formation. 2. Cholelithiasis with no evidence for cholecystitis. 3. Hepatic steatosis. Condition at Discharge: Stable Final Diagnosis/Problems List #s/p laparotomy/appendectomy: non perforated #Sepsis due to bacteremia gram + and acute appendicitis # NSTEMI probably type 2 #MACKENZIE hemodynamically mediated (unknown baseline creatinine) on CKD #CAD with questionable history of CA - status post PCI 20 years ago #Diverticulosis with history of diverticulitis #Diabetes type 2 hba1c 7.4 #Questionable PCP consumption #Obesity #Hypokalemia Discharge Disposition: Home Discharge Instruct/Medications Diet: Consistent carbohydrate, Cardiac 2g Na,low cholest Activity: Light activity Follow Up/Referral: f/u with Dr Christianson in 7 days and pcp Medications: see prescription Discharge Statement: "Patient was advised to return to the ER or call 911 if any headaches, dizziness, shortness of breath, chest pain, abdominal pain, bleeding, fevers, or worsening of medical condition. Patient was counseled about treatment plan, medications, possible side effects, patientverbalized understanding. All questions were answered to the best of my ability. This discharge took greater then 30 minutes in planning, reviewing documentation, counseling the patient, and discussing with other team members." ASSESSMENT ASSESSMENT Assessment s/p laparotomy and appendectomy MANDEEP LOPES RESIDENT Jul 27, 2024 16:07
[2024-07-27] MEDS ORDERED: HYDR-4902 PO (17:21)
[2024-07-27] MEDS ORDERED: NALO4SPR3 ×2 (17:21→17:28)
== END 2024-07-27 17:30 | disposition home or self-care (01) | DRG 853 ==
LOC: ER 23:39 → TELE 07-23 02:57 → ICU WEST 07-23 22:52 → TELE-CENTR 07-24 14:05 → CENTRAL 07-27 11:36
PROVIDERS: ADMIT Internal Medicine Geriatric Medicine; ATTEND Emergency Medicine
PROC: 0WJG4ZZ Inspection of Peritoneal Cavity, Percutaneous Endoscopic Approach (ICD-10-PCS; 2024-07-23)
PROC: 0DNJ0ZZ Release Appendix, Open Approach (ICD-10-PCS; 2024-07-23)
PROC: 0DTJ0ZZ Resection of Appendix, Open Approach (ICD-10-PCS; principal; 2024-07-23 16:10)
DX: A41.89 Other specified sepsis (principal); I21.A1 Myocardial infarction type 2; R65.21 Severe sepsis with septic shock; K85.90 Acute pancreatitis without necrosis or infection, unspecified; N17.0 Acute kidney failure with tubular necrosis; E78.5 Hyperlipidemia, unspecified; E66.01 Morbid (severe) obesity due to excess calories; Z20.822 Contact with and (suspected) exposure to COVID-19; E88.810 Metabolic syndrome; E87.6 Hypokalemia; I12.9 Hypertensive chronic kidney disease with stage 1 through stage 4 chronic kidney disease, or unspecified chronic kidney disease; E11.22 Type 2 diabetes mellitus with diabetic chronic kidney disease; N18.9 Chronic kidney disease, unspecified; D64.9 Anemia, unspecified; Z96.651 Presence of right artificial knee joint; I25.10 Atherosclerotic heart disease of native coronary artery without angina pectoris; Z53.29 Procedure and treatment not carried out because of patient's decision for other reasons; Z95.5 Presence of coronary angioplasty implant and graft; Z79.02 Long term (current) use of antithrombotics/antiplatelets; Z86.73 Personal history of transient ischemic attack (TIA), and cerebral infarction without residual deficits; I25.2 Old myocardial infarction; Z68.34 Body mass index [BMI] 34.0-34.9, adult; Z53.31 Laparoscopic surgical procedure converted to open procedure
CPT/HCPCS: 36415; 71045; 74176; 76775; 80053; 80061; 80202; 80307; 81001; 82140; 82306; 82565; 82570; 82607; 82962; 83605; 83735; 83880; 83935; 84100; 84133; 84156; 84300; 84439; 84443; 84481; 84484; 85007; 85025; 85027; 85610; 85730; 87040; 87081; 87086; 87426; 87804; 93005; 93306; 94640; 96361; 96365; 97163; G0378; J0330; J1815; J2003; J2250; J2704; J3480; J3490